=== PATIENT | male | born 1965 | race Caucasian/White ===

== ENCOUNTER 2021-12-11 13:36 | Emergency (ER) | payer MEDICAID, SELFPAY ==
[2021-12-11] VITALS (18 sets, daily range): BP systolic 158–211; BP diastolic 72–133; PULSE 47–68; RESP 15–23; TEMP 36.8; O2SAT 91–98; BMI 30.7
--- NOTE | 2021-12-11 13:59 | PC.NURSE ---
Pt reports came to ER today due to high blood pressure, dizziness, and nausea. Denies hx of HTN or other medical history. Denies chest pain, headaches, or dyspnea. Visitor at bedside. Call light within reach. Instructed on use.
[2021-12-11 14:35] LABS: Basophils % 0.6 %; Eosinophils # 0.1 10^3/uL (0.0-0.8); Hematocrit 48.6 % (42.0-52.0); Hemoglobin 16.1 g/dL (11.7-16.6); Lymphocytes # 1.7 10^3/uL (0.8-4.8); Lymphocytes % 25.7 %; Mean Corpuscular HGB Conc 33.1 g/dL (30.0-36.0); Mean Corpuscular Hemoglobin 30.1 pg (28.0-34.0); Mean Platelet Volume 10.1 fL (7.4-10.4); Monocytes # 0.6 10^3/uL (0.2-0.9); Monocytes % 9.1 %; Neutrophils # 4.23 10^3/uL (1.8-7.7); Neutrophils % 63.3 %; Nucleated Red Blood Cells % 0 %; Platelet Count 199 10^3/cmm (130-400); Red Blood Count 5.34 10^6/uL (4.1-5.3); Red Cell Distribution Width 14.3 % (12.1-15.1); White Blood Count 6.7 10^3/uL (4.0-10.0)
--- NOTE | 2021-12-11 14:35 | ECG_ITS ---
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 Measurements Intervals [place] Rate: 58 P: 22 VA: 161 QRS: -25 QRSD: 104 T: 201 QT: 445 QTc: 438 Interpretive Statements SINUS BRADYCARDIA BORDERLINE LEFT AXIS DEVIATION [QRS AXIS < -20] LEFT VENTRICULAR HYPERTROPHY AND ST-T CHANGE [VOLTAGE CRITERIA PLUS ST/T ABNORMALITY] No previous ECG available for comparison Electronically Signed On 12-11-2021 19:05:50 CDT by Johnie Browning M.D. [email or web address]/[id number]
[2021-12-11 14:58] LABS: Alanine Aminotransferase 15 U/L (0-41); Albumin Level 4.1 g/dL (3.5-5.2); Alkaline Phosphatase 66 IU/L (40-130); Aspartate Amino Transferase 20 U/L (0-40); Blood Urea Nitrogen 12 mg/dL (6-20); Carbon Dioxide 26 mmol/L (22-29); Chloride 104 mmol/L (98-107); Globulin 2.7 g/dL (1.3-4.6); Glucose 108 mg/dL (65-115); Osmolality Calculated 290 mOsm/kg (285-295); Sodium 140 mmol/L (136-145); Total Bilirubin 0.4 mg/dL (0.15-1.2); Total Protein 6.8 g/dL (6.6-8.7)
--- NOTE | 2021-12-11 15:11 | W.ED.DIZZY ---
HPI - Dizziness General: Chief Complaint: Dizziness Stated Complaint: high B/P Time Seen by Provider: 12/11/21 13:53 Source: patient Mode of arrival: ambulatory History of Present Illness: HPI Narrative: 56-year-old male presents to the emergency room with complaints of generally feeling dizzy not feeling well. He occasionally gets some chest discomfort this is been going on for a couple of weeks now he is not really taking anything for it. He does not usually see the doctor. He has not noticed anything that exacerbates or relieves it. Patient does not smoke he does admit to drinking about 6 beers a night. MD elicited complaint: dizziness Onset (ago): week(s) Timing: intermittent Severity: moderate Description: lightheadedness and off-balance Exacerbating factors: nothing Relieving factors: nothing Associated symptoms: Denies change in hearing, chest pain, chills, cough, diaphoresis, ear discharge, ear pressure, fevers/chills, headache(s), malaise, nausea, nasal congestion, palpitations, rash, short of breath, syncope, tinnitus, vomiting or weakness Associated neuro symptoms: Deny confusion, difficulty speaking, dysphagia, diplopia, extremity weakness, facial numbness, facial weakness, gait changes, numbness in extremities or visual changes Review of Systems Const: Denies: fever(s), chills, fatigue, malaise or diaphoresis ENMT: Denies: ear discharge, change in hearing, tinnitus or nasal congestion Card: Denies: chest pain, palpitations or syncope Resp: Denies: dyspnea, productive cough or non-productive cough GI: Denies: abdominal pain, nausea, vomiting or dysphagia : Denies: flank pain, difficulty urinating, dysuria, urinary frequency or urinary urgency Skin/Breast: Denies: rash or pruritus Neuro: Denies: headache(s), numbness in extremities or confusion PFS ED PFSH: Medical History Hypertension Social History Smoking and tobacco status: never smoked Alcohol intake: current Alcohol intake frequency: 3 or more drinks per day Alcohol type: beer Physical Exam Const: GENERAL APPEARANCE: cooperative and comfortable ORIENTATION/CONSCIOUSNESS: Yes awake, Yes oriented to person, Yes oriented to place and Yes oriented to time HENMT: COMMON NORMALS: normocephalic and atraumatic HEAD & SCALP: normocephalic and atraumatic Resp: COMMON NORMALS: normal respiratory effort, No retractions, No use of accessory muscles and clear to auscultation bilaterally AUSCULTATION: clear to auscultation bilaterally Cardio: COMMON NORMALS: regular rate, regular rhythm and No murmurs present (Cardio) RATE: regular rate RHYTHM: regular rhythm GI: COMMON NORMALS: Soft to palpation and No hepatosplenomegaly present AUSCULTATION: Yes normoactive bowel sounds PALPATION: Yes Soft to palpation, No Tenderness to palpation present (GI), No Guarding due to palpation present (GI) and Yes No hepatosplenomegaly present Extremity: COMMON NORMALS: normal to inspection, capillary refill normal, no clubbing, cyanosis or edema, no calf tenderness and no pedal edema Neuro: SENSORIUM/ORIENTATION: Yes oriented to person, Yes oriented to place and Yes oriented to time Skin: COMMON NORMALS: no rashes or lesions noted GENERAL SKIN EXAM: no rashes or lesions noted Course Vital Signs: Vital signs: Vital Signs Temperature 98.3 F 12/11/21 13:42 Pulse Rate 62 12/11/21 17:31 Respiratory Rate 17 12/11/21 17:00 Blood Pressure 172/94 12/11/21 17:31 Pulse Oximetry 97 12/11/21 17:31 Oxygen Delivery Me thod 12/11/21 14:30 MDM - Dizziness Medical Decision Making Labs imaging and EKG reviewed. Blood pressure is improved we will discharge patient home started on amlodipine and aspirin daily. Recheck within the next week to reevaluate blood pressure Medical Records I reviewed the patient's medical records. Lab Data I reviewed the patient's lab results. : 12/11/21 14:25 12/11/21 14:25 Laboratory Results WBC 6.7 10^3/uL (4.0-10.0) 12/11/21 14:25 RBC 5.34 10^6/uL (4.1-5.3) H 12/11/21 14:25 Hgb 16.1 g/dL (11.7-16.6) 12/11/21 14:25 Hct 48.6 % (42.0-52.0) 12/11/21 14:25 MCV 91.0 fl (80-94) 12/11/21 14:25 MCH 30.1 pg (28.0-34.0) 12/11/21 14:25 MCHC 33.1 g/dL (30.0-36.0) 12/11/21 14:25 RDW 14.3 % (12.1-15.1) 12/11/21 14:25 Plt Count 199 10^3/cmm (130-400) 12/11/21 14:25 MPV 10.1 fL (7.4-10.4) 12/11/21 14:25 Neut % (Auto) 63.3 % 12/11/21 14:25 Lymph % (Auto) 25.7 % 12/11/21 14:25 Arthur % (Auto) 9.1 % 12/11/21 14:25 Eos % (Auto) 1.0 % 12/11/21 14:25 Baso % (Auto) 0.6 % 12/11/21 14:25 Neut # (Auto) 4.23 10^3/uL (1.8-7.7) 12/11/21 14:25 Lymph # (Auto) 1.7 10^3/uL (0.8-4.8) 12/11/21 14:25 Arthur # (Auto) 0.6 10^3/uL (0.2-0.9) 12/11/21 14:25 Eos # (Auto) 0.1 10^3/uL (0.0-0.8) 12/11/21 14:25 Baso # (Auto) 0.0 10^3/uL (0.0-0.1) 12/11/21 14:25 Nucleated RBC % (auto) 0 % 12/11/21 14:25 Nucleated RBCs # 0.0 /100WBC 12/11/21 14:25 Sodium 140 mmol/L (136-145) 12/11/21 14:25 Potassium 4.0 mmol/L (3.5-5.1) 12/11/21 14:25 Chloride 104 mmol/L (98-107) 12/11/21 14:25 Carbon Dioxide 26 mmol/L (22-29) 12/11/21 14:25 Anion Gap 14.0 (5-19) 12/11/21 14:25 BUN 12 mg/dL (6-20) 12/11/21 14:25 Creatinine 0.8 mg/dL (0.7-1.2) 12/11/21 14:25 GFR Calculation 100.0 mL/min (90-130) 12/11/21 14:25 Glucose 108 mg/dL (65-115) 12/11/21 14:25 Calculated Osmolality 290 mOsm/kg (285-295) 12/11/21 14:25 Calcium 9.0 mg/dL (8.5-10.5) 12/11/21 14:25 Total Bilirubin 0.4 mg/dL (0.15-1.2) 12/11/21 14:25 AST 20 U/L (0-40) 12/11/21 14:25 ALT 15 U/L (0-41) 12/11/21 14:25 Alkaline Phosphatase 66 IU/L (40-130) 12/11/21 14:25 Total Protein 6.8 g/dL (6.6-8.7) 12/11/21 14:25 Albumin 4.1 g/dL (3.5-5.2) 12/11/21 14:25 Globulin 2.7 g/dL (1.3-4.6) 12/11/21 14:25 Urine Color Yellow (Yellow) 12/11/21 14:07 Urine Appearance Clear (CLEAR) 12/11/21 14:07 Urine pH 7 (5-7) 12/11/21 14:07 Ur Specific [place] 1.005 (1.005-1.030) 12/11/21 14:07 Urine Protein Neg (Negative) 12/11/21 14:07 Urine Glucose (UA) Norm (Normal) 12/11/21 14:07 Urine Ketones Negative (Negative) 12/11/21 14:07 Urine Blood Neg (Negative) 12/11/21 14:07 Urine Nitrate Negative (Negative) 12/11/21 14:07 Urine Bilirubin Neg (Negative) 12/11/21 14:07 Urine Urobilinogen Norm mg/dL (Negative) 12/11/21 14:07 Ur Leukocyte Esterase Negative (Negative) 12/11/21 14:07 Discharge Plan Discharge Patient Disposition: Home Clinical Impression: Hypertension Condition: Stable Prescriptions: New amlodipine 5 mg tablet 5 mg PO DAILY Qty: 30 0RF aspirin 81 mg tablet,delayed release (DR/EC) 81 mg PO DAILY Qty: 30 0RF Discharge Orders: Discharge ED (Routine); Ordered 12/11/21 Ordered By: Kota Weber Discharge Diet: Usual diet Discharge Activity: Increase activity as tolerated Patient Instructions: Opioid Safety Activity Restrictions/Additional Instructions: Case management make arrangements for you to follow-up and establish with a primary care physician. Coding Level of Care Code ED Fire Extinguisher Mechanic for Littleg Fwd Exam Detailed
[2021-12-11 15:35] LABS: Add Urine Microscopic? NO; Charge for UA Resulting for Rev
[2021-12-11] MEDS: amlodipine 5 mg Tablet PO (15:40)
[2021-12-11 15:42] LABS: Bilirubin Urine Neg (Negative); Blood Urine Neg (Negative); Glucose Urine UA Norm (Normal); Ketones Urine Negative (Negative); Leukocyte Esterase Urine Negative (Negative); Nitrate Urine Negative (Negative); Protein Urine Neg (Negative); Specific Gravity, Urine 1.005 (1.005-1.030); Urine Appearance Clear (CLEAR); Urine Color Yellow (Yellow); Urobilinogen Urine Norm (Negative); pH Urine 7 (5-7)
--- NOTE | 2021-12-11 15:45 | PC.NURSE ---
Physician made aware pt HR ranging 45-55. Per physician, okay to give amlodipine.
== END 2021-12-11 17:33 | disposition home or self-care (01) ==
PROVIDERS: Emergency Provider Family Medicine
DX: I10 Essential (primary) hypertension (principal)
CPT/HCPCS: 80053; 81003; 85025; 93005; 99284

== ENCOUNTER → 2023-04-03 14:36 | Outpatient (BNVA) | payer MEDICAID, SELFPAY | PROVIDERS: Visit Provider Family Medicine Adult Medicine | DX: Z00.00 Encounter for general adult medical examination without abnormal findings (principal); I10 Essential (primary) hypertension; G89.29 Other chronic pain; M15.9 Polyosteoarthritis, unspecified; M54.9 Dorsalgia, unspecified | CPT/HCPCS: 80053; 84443; 85025; 85651; G0103 ==

== ENCOUNTER → 2023-05-11 12:51 | Outpatient (BNVA) | payer MEDICAID, SELFPAY | PROVIDERS: PCP Family Medicine Adult Medicine; Visit Provider Family Medicine Adult Medicine | DX: M15.9 Polyosteoarthritis, unspecified (principal); I10 Essential (primary) hypertension; Z00.00 Encounter for general adult medical examination without abnormal findings; G89.29 Other chronic pain; M54.9 Dorsalgia, unspecified | CPT/HCPCS: 80053; 80061; 84443; 85025; 86140 ==

== ENCOUNTER 2023-09-01 22:31 | Inpatient (IN) | payer MEDICAID, SELFPAY ==
[2023-09-01 22:32] VITALS: BP 135/75; PULSE 81; RESP 30; TEMP 36.4; O2SAT 99; BMI 30.4
--- NOTE | 2023-09-01 22:32 | ECG_ITS ---
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 Measurements Intervals [place] Rate: 81 P: 42 MN: 184 QRS: 0 QRSD: 198 T: 118 QT: 483 QTc: 561 Interpretive Statements SINUS RHYTHM LEFT BUNDLE BRANCH BLOCK [120+ ms QRS DURATION, 80+ ms Q/S IN V1/V2, 85+ ms R IN I/aVL/V5/V6] Compared to ECG 12/11/2021 14:35:44 Left bundle-branch block now present Sinus bradycardia no longer present Left ventricular hypertrophy no longer present ST (T wave) deviation no longer present Electronically Signed On 09-02-2023 22:42:23 CDT by Johnie Browning M.D. [id number]
[2023-09-01 22:41] VITALS: PULSE 79
--- NOTE | 2023-09-01 22:41 | XRR_ITS ---
PROCEDURE INFORMATION: Exam: XR Chest Exam date and time: 09/01/2023 10:44 PM Age: 58 years old Clinical indication: Shortness of breath; Patient HX: SOB; Syncope; Low o2 sat TECHNIQUE: Imaging protocol: Radiologic exam of the chest. Views: 1 view. COMPARISON: No relevant prior studies available. FINDINGS: Lungs: Mild bilateral peribronchial thickening and mild perihilar linear markings consistent with bronchitis and/or viral pneumonitis and/or reactive airway disease and/or atypical pulmonary interstitial edema. Pleural spaces: Unremarkable. No pleural effusion. No pneumothorax. Heart/Mediastinum: Moderate globular cardiomegaly consistent with 4-chamber enlargment and/or pericardial effusion. Bones/joints: Moderate thoracic spondylosis. XR/XR chest 1V portable [id number] IMPRESSION: 1. Moderate globular cardiomegaly consistent with 4-chamber enlargment and/or pericardial effusion. 2. Mild bilateral peribronchial thickening and mild perihilar linear markings consistent with bronchitis and/or viral pneumonitis and/or reactive airway disease and/or atypical pulmonary interstitial edema.
[2023-09-01] MEDS: morphine 4 mg/mL SDV 1 mL IVP (22:52)
[2023-09-01] MEDS: ondansetron 2 mg/ML SDV 2 mL 4 MG IVP (22:52)
[2023-09-01 22:53] LABS: Basophils % 0.6 %; Eosinophils % 0.3 %; Hematocrit 43.4 % (37-53); Lymphocytes # 2.2 10^3/uL (0.8-4.8); Lymphocytes % 34.3 %; Mean Corpuscular HGB Conc 33.4 g/dL (30-55); Mean Corpuscular Hemoglobin 30.5 pg (27-33); Mean Corpuscular Volume 91.2 fl (82-101); Mean Platelet Volume 9.8 fL (7.4-10.4); Monocytes # 0.5 10^3/uL (0.2-0.9); Monocytes % 7.6 %; Neutrophils # 3.65 10^3/uL (1.8-7.7); Neutrophils % 56.7 %; Nucleated Red Blood Cells % 0 %; Platelet Count 297 10^3/cmm (157-399); Red Blood Count 4.76 10^6/uL (3.85-5.65); Red Cell Distribution Width 14.4 % (12.1-15.1); White Blood Count 6.44 10^3/uL (3.29-11.43)
--- NOTE | 2023-09-01 22:57 | PC.NURSE ---
Pt. states to mother on the phone that he has lung cancer and that he is going to prove to his brother and her that he has had lung cancer and been sick for a while. When mother asked if the hospital told him that he has lung cancer, the patient states No, I know. they are going to do a bunch of tests on me, my blood pressure and my heart pressure! I'll call you later
[2023-09-01 23:11] LABS: INR 0.98 (0.8-1.2)
[2023-09-01 23:12] LABS: Partial Thromboplastin Time 29.1 SECONDS (23.9-36.7)
--- NOTE | 2023-09-01 23:20 | W.ED.CHESTPA ---
HPI - Chest Pain General: Chief Complaint: Chest Pain Stated Complaint: cp/sob Time Seen by Provider: 09/01/23 22:39 History of Present Illness: 58-year-old male with no prior history of coronary disease. He does have a history of hypertension evidently. He presents with worsening shortness of breath over the last week. He says he has been short of breath on and off for couple of years. He is noted worsening lower extremity edema for the past month or so. He denies fever. He says he is coughing up slimy saliva . Tonight, his shortness of breath was worse, so he called ambulance. He admits to having some chest pain, but notes that it is left-sided with his cough. He denies chest pain currently. Associated symptoms: Reports dyspnea; Deny abdominal pain, fever(s), nausea, palpitations or vomiting Review of Systems Const: Denies: fever(s) ENMT: Denies: throat pain Card: Reports: chest pain; Denies: palpitations Resp: Reports: dyspnea, productive cough, wheezing and hemoptysis GI: Denies: abdominal pain, nausea, vomiting or diarrhea Neuro: Reports: dizziness Psych: Reports: anxiety [facility] ED PFSH: Medical History Healthcare maintenance Osteoarthritis involving multiple joints on both sides of body Shoulder pain Back pain Chronic pain Hypertension Family History (Updated 02/28/23 @ 13:15 by Jacy Poe LPN) Father No problems noted. Mother No problems noted. Social History Smoking and tobacco/nicotine status: never used tobacco/nicotine Alcohol intake: current Alcohol intake frequency: 3 or more drinks per day Alcohol type: beer Substance/Drug Use: former Physical Exam Const: GENERAL APPEARANCE: cooperative, anxious and ill appearing (Mildly); not frail appearing HENMT: COMMON NORMALS: normocephalic, atraumatic and Normal external nose present HEAD & SCALP: normocephalic and atraumatic FACE & SINUS: normal facial exam and face symmetric NOSE: Normal external nose present Eye: COMMON NORMALS: Equal, round and reactive pupils present and EOMs intact bilaterally PUPIL: Yes Equal, round and reactive pupils present Neck/C-Spine: GENERAL: Yes trachea midline Chest: CHEST: Yes Symmetrical chest wall rise Resp: COMMON NORMALS: normal respiratory effort, No retractions, No use of accessory muscles and clear to auscultation bilaterally AUSCULTATION: clear to auscultation bilaterally Cardio: COMMON NORMALS: regular rate and regular rhythm RATE: regular rate RHYTHM: regular rhythm GI: COMMON NORMALS: Normal to inspection, nondistended, normoactive bowel sounds present Extremity: GENERAL: Yes edema (1+) Neuro: ALLIE COMA SCALE: document GCS findings Allie coma scale eye opening: Spontaneous Allie coma scale verbal response: Orientated [place] coma scale motor response: Obey commands Allie coma scale total score: 15 SENSORY EXAM: Yes extremities (intact) Psych: COMMON NORMALS: speech normal SPEECH: Yes normal speech Course Vital Signs: Vital signs: Vital Signs Temperature 97.6 F 09/01/23 22:32 Pulse Rate 81 09/01/23 22:32 Respiratory Rate 30 H 09/01/23 22:32 Blood Pressure 135/75 09/01/23 22:32 Pulse Oximetry 99 09/01/23 22:32 MDM - Chest Pain Medical Decision Making 58-year-old gentleman with cough, some sputum production, lower extremity edema, and pleuritic chest pain. The patient has a large left bundle branch block on EKG. There is some ST elevation anteriorly present in the left bundle. Interventional cardiology was consulted on the patient's arrival with the EKG, as he has an EKG from 2 years ago that does not show his left bundle. They agree without a story of anginal type chest discomfort, it is difficult to characterize this large left bundle with ST wave changes as an ST elevation MO. Recommendations are to treat medically for now, and obtain troponins. His CBC is normal. His chest x-ray shows some cardiomegaly with vascular congestion present. He is tachypneic, with edematous legs. His BNP is significantly elevated at 2700. First troponin is 44, with a delta of -7 at 2 hours. His blood pressures have been high 80s and 90s over 50s. He is not oxygen dependent at this point, but has significant orthopnea. He will go to the ICU given his hypotension. Lab Data 09/01/23 22:10 09/01/23 22:10 Radiology Impressions Chest X-Ray 09/01/23 22:41 IMPRESSION: 1. Moderate globular cardiomegaly consistent with 4-chamber enlargment and/or pericardial effusion. 2. Mild bilateral peribronchial thickening and mild perihilar linear markings consistent with bronchitis and/or viral pneumonitis and/or reactive airway disease and/or atypical pulmonary interstitial edema. Laboratory Results WBC 6.44 10^3/uL (3.29-11.43) 09/01/23 22:10 RBC 4.76 10^6/uL (3.85-5.65) 09/01/23 22:10 Hgb 14.50 g/dL (11.27-16.99) 09/01/23 22:10 Hct 43.4 % (37-53) 09/01/23 22:10 MCV 91.2 fl (82-101) 09/01/23 22:10 MCH 30.5 pg (27-33) 09/01/23 22:10 MCHC 33.4 g/dL (30-55) 09/01/23 22:10 RDW 14.4 % (12.1-15.1) 09/01/23 22:10 Plt Count 297 10^3/cmm (157-399) 09/01/23 22:10 MPV 9.8 fL (7.4-10.4) 09/01/23 22:10 Neut % (Auto) 56.7 % 09/01/23 22:10 Lymph % (Auto) 34.3 % 09/01/23 22:10 [place] % (Auto) 7.6 % 09/01/23 22:10 Eos % (Auto) 0.3 % 09/01/23 22:10 Baso % (Auto) 0.6 % 09/01/23 22:10 Neut # (Auto) 3.65 10^3/uL (1.8-7.7) 09/01/23 22:10 Lymph # (Auto) 2.2 10^3/uL (0.8-4.8) 09/01/23 22:10 [place] # (Auto) 0.5 10^3/uL (0.2-0.9) 09/01/23 22:10 Eos # (Auto) 0.0 10^3/uL (0.0-0.8) 09/01/23 22:10 Baso # (Auto) 0.0 10^3/uL (0.0-0.1) 09/01/23 22:10 Nucleated RBC % (auto) 0 % 09/01/23 22:10 Nucleated RBCs # 0.0 /100WBC 09/01/23 22:10 PT 13.30 SECONDS (12.1-14.9) 09/01/23 22:10 INR 0.98 (0.8-1.2) 09/01/23 22:10 APTT 29.1 SECONDS (23.9-36.7) 09/01/23 22:10 Sodium 136 mmol/L (136-145) 09/01/23 22:10 Potassium 4.3 mmol/L (3.5-5.1) 09/01/23 22:10 Chloride 100 mmol/L (98-107) 09/01/23 22:10 Carbon Dioxide 20 mmol/L (22-29) L 09/01/23 22:10 Anion Gap 20.3 (5-19) H 09/01/23 22:10 BUN 10 mg/dL (6-20) 09/01/23 22:10 Creatinine 1.0 mg/dL (0.7-1.2) 09/01/23 22:10 GFR Calculation 76.7 mL/min (90-130) L 09/01/23 22:10 Glucose 105 mg/dL (65-115) 09/01/23 22:10 Calculated Osmolality 281 mOsm/kg (285-295) L 09/01/23 22:10 Calcium 8.8 mg/dL (8.5-10.5) 09/01/23 22:10 Total Bilirubin 0.3 mg/dL (0.15-1.2) 09/01/23 22:10 AST 19 U/L (0-40) 09/01/23 22:10 ALT 11 U/L (0-41) 09/01/23 22:10 Alkaline Phosphatase 71 U/L (40-130) 09/01/23 22:10 Troponin T Baseline 44 ng/L (0-15) H 09/01/23 22:10 Troponin T 120 Minute 36.72 ng/L (0-15) H 09/02/23 00:17 Delta Troponin T -7.28 ABS# (0-10) L 09/02/23 00:17 NT-Pro-B Natriuret Pep 2677 pg/mL (0-125) H 09/01/23 22:10 Total Protein 7.3 g/dL (6.6-8.7) 09/01/23 22:10 Albumin 4.1 g/dL (3.5-5.2) 09/01/23 22:10 Globulin 3.2 g/dL (1.3-4.6) 09/01/23 22:10 All radiology interpretation(s) finalized by discharge Discharge Plan Discharge Patient Disposition: Admitted As Inpatient Clinical Impression: Chest pain, Pulmonary edema, Acute hypotension Condition: Fair Prescriptions: No Action celecoxib 400 mg capsule 400 mg PO DAILY PRN (Reason: pain) Qty: 30 1RF lisinopril-hydrochlorothiazide 20-12.5 mg tablet 1 tab PO .q am Qty: 90 0RF baclofen 20 mg tablet 20 mg PO TID Qty: 90 1RF Referrals: Kip Howard MD [Primary Care Provider] - Coding Level of Care Code ED Computer Numerical Control Machinist for Chg Anthony
[2023-09-01 23:36] LABS: Troponin(5th) Baseline 44 ng/L (0-15)
[2023-09-01 23:38] VITALS: BP 88/47; PULSE 60; RESP 24; O2SAT 92
[2023-09-01 23:51] LABS: Alanine Aminotransferase 11 U/L (0-41); Albumin Level 4.1 g/dL (3.5-5.2); Alkaline Phosphatase 71 U/L (40-130); Anion Gap 20.3 (5-19); Aspartate Amino Transferase 19 U/L (0-40); Blood Urea Nitrogen 10 mg/dL (6-20); Calcium 8.8 mg/dL (8.5-10.5); Carbon Dioxide 20 mmol/L (22-29); Chloride 100 mmol/L (98-107); Creatinine Clr Calc Pharmacy 88.0671; Globulin 3.2 g/dL (1.3-4.6); Glomerular Filtration Rate 76.7 mL/min (90-130); Glucose 105 mg/dL (65-115); NT Pro B Type Natriuretic Pept 2677 pg/mL (0-125); Osmolality Calculated 281 mOsm/kg (285-295); Potassium 4.3 mmol/L (3.5-5.1); Sodium 136 mmol/L (136-145); Total Bilirubin 0.3 mg/dL (0.15-1.2); Total Protein 7.3 g/dL (6.6-8.7)
[2023-09-02] VITALS (31 sets, daily range): BP systolic 87–148; BP diastolic 52–102; PULSE 54–88; RESP 18–27; TEMP 36.5–37; O2SAT 88–96; BMI 31.4
[2023-09-02 00:39] LABS: Troponin 5 2HR 36.72 ng/L (0-15)
--- NOTE | 2023-09-02 00:41 | ECG_ITS ---
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 Measurements Intervals [place] Rate: 61 P: 38 MT: 173 QRS: 7 QRSD: 198 T: 141 QT: 544 QTc: 550 Interpretive Statements SINUS RHYTHM LEFT BUNDLE BRANCH BLOCK [120+ ms QRS DURATION, 80+ ms Q/S IN V1/V2, 85+ ms R IN I/aVL/V5/V6] Compared to ECG 09/01/2023 22:32:06 No significant changes Electronically Signed On 09-02-2023 22:50:15 CDT by Johnie Browning M.D. [id number]
[2023-09-02 00:42] LABS: Troponin 5 2HR Delta -7.28 ABS# (0-10)
[2023-09-02] MEDS: morphine 4 mg/mL SDV 1 mL 2 MG IVP (03:57)
--- NOTE | 2023-09-02 05:45 | P.HP_ITS ---
Providers/Chief Complaint 2 Admitting Physician: London Braga MD Primary Care Provider: Kip Howard MD Chief Complaint: cp/sob History of Present Illness Jude Lemon is a 58 year old male history of CHF OR or coronary disease presents to the hospital with chief complaint of worsening of shortness of breath and chest pain. Patient stating that he has been struggling with shortness of breath for last 1 year and it has gotten worse in last 6 weeks, he is experiencing orthopnea, PND shortness of breath on exertion. Around 11 PM on 08/31 he was walking towards the bathroom when he started getting dizzy and short of breath, he started spearing seeing chest pain which only lasted for about 5 seconds he described his chest pain as sharp stabbing pain he is able to pinpoint the area. He also noted some numbness in his left arm. He did not experience vomiting. Because of worsening of shortness of breath he decided to come to the hospital, in the ER EKG was showing to the supply chain analyst, there was new onset left bundle branch block without active chest pain, supply chain analyst recommended monitoring for serial troponins At the time of evaluation patient is on room air hemodynamically stable EKG changes are still present he is not having any active chest pain, troponins are trending down Patient is full code, stating that he lives with his mother He smokes 1 pack/day cutting down to less than half pack a day He was asking if he has lung cancer Patient is stating that for last few weeks he has been noticing ankle swelling Review of Systems 2 Const: Reports: body aches, change in weight and fatigue; Denies: fever(s) Eyes: Denies: change in vision ENMT: Denies: throat pain Card: Reports: chest pain and swelling of feet/ankles Resp: Reports: dyspnea and productive cough GI: Denies: abdominal pain : Denies: flank pain Medications/Allergies Home Medications Medication Instructions Recorded Confirmed Last Taken Type celecoxib 400 mg capsule 400 mg PO DAILY PRN pain #30 caps 02/28/23 05/11/23 Unknown Rx lisinopril 20 1 tab PO .q am hypertension #90 04/03/23 05/11/23 Unknown Rx mg-hydrochlorothiazide 12.5 mg tabs tablet baclofen 20 mg tablet 20 mg PO TID back pain #90 tabs 05/11/23 Unknown Rx Allergies Allergy/AdvReac Type Severity Reaction Status Date / Time No Known Allergies Allergy Unverified 05/11/23 12:54 PFSH Acute 2 PFSH: Medical History Healthcare maintenance Osteoarthritis involving multiple joints on both sides of body Shoulder pain Back pain Chronic pain Hypertension Family History Father No problems noted. Mother No problems noted. Social History Smoking and tobacco/nicotine status: never used tobacco/nicotine Alcohol intake: current Alcohol intake frequency: 3 or more drinks per day Alcohol type: beer Substance/Drug Use: former Vitals/I&O/Wt Last Vital Signs Temp 97.6 F 09/01/23 22:32 Pulse 76 09/02/23 01:42 Resp 24 H 09/02/23 01:42 BP 129/72 09/02/23 01:42 Pulse Ox 96 09/02/23 01:42 O2 Del Method Room Air 09/02/23 02:00 09/01/23 09/01/23 09/02/23 14:59 22:59 06:59 Intake Total 180 / 180 Balance 180 / 180 Weight last 48 hrs Weight 93.894 kg Weight 90.718 kg Physical Exam 2 Narrative: Awake and alert Active sign of fluid overload Crackles bilateral. Rhonchi Currently on room air Hemodynamic stable No active chest pain Lower extremity no significant swelling S1, S2 Abdomen soft Pleasant cooperative Nonfocal neuroexam Dental caries Data 09/01/23 22:10 09/01/23 22:10 A&P Assessment and plan (1) Chest pain: (2) Acute hypotension: (3) Pulmonary edema: (4) New onset of congestive heart failure: Plan Unstable angina with new left bundle branch block No active chest pain Troponin trending down EKG showing ST depression with left bundle branch block New onset left bundle branch block Will request echo Will give Lasix as well Patient seems to have cardiomegaly on the chest x-ray, BNP is high Clinical signs of fluid overload New onset CHF Ejection fraction is unknown Requesting echo Start IV Lasix Pulm edema present on chest x-ray He is experiencing orthopnea PND, not requiring oxygen at this time Active smoker: Smokes 1 pack/day, Will request D-dimer DuoNeb every 4 as needed Essential hypertension Patient was seen in the ER for hypertension when he was placed on lisinopril hydrochlorothiazide combination, on arrival his blood pressure was low, for now I would only start lisinopril Further decision regarding angiogram will be made after reviewing echo Check B12 and TSH Full code Cardiac diet I will keep patient on therapeutic Lovenox will request D-dimer, rule out PE Attestations 2 Medical Necessity Statement*: More than 2 midnights anticipated Diagnoses Chest pain R07.9 Acute hypotension I95.9 Pulmonary edema J81.1 New onset of congestive heart failure I50.9
--- NOTE | 2023-09-02 05:47 | USCV_ITS ---
Jude Lemon Age: 58 Gender: M : 1965 Exam Date: 09/02/2023 07:57 Ordering Phys: London Braga MD Technologist: Yazan Davis [place] [facility] [place] UA BP: 135 / 72 HR: 74 Rhythm: Sinus Technical Quality: Adequate MEASUREMENTS (Male / Female) Normal Values 2D ECHO LV Diastolic Diameter PLAX 6.4 cm 4.2 - 5.9 / 3.9 - 5.3 cm IVS Diastolic Thickness 1.5 cm 0.6 - 1.0 / 0.6 - 0.9 cm IVS Systolic Thickness 1.4 cm LVPW Diastolic Thickness 1.5 cm 0.6 - 1.0 / 0.6 - 0.9 cm LVPW Systolic Thickness 1.8 cm LVOT Diameter 2.0 cm LV Ejection Fraction 2D Teich 22.8 % LV Ejection Fraction MOD 2C 34.5 % LV Ejection Fraction 2C AL 32.6 % LA Diameter 4.6 cm RA Systolic Volume 4C AL 67.3 ml RA Systolic Volume 4C MOD 64.4 ml LA Sys Volume AL 88.1 cm cubed LA Sys Volume Index AL 41.0 cm cubed/m squared Aorta at Sinotubular Diameter 3.0 cm IVC Diameter 1.9 cm M-MODE LA Ao Ratio MM 1.2 AV Cusp Separation MM 2.2 cm DOPPLER AV Peak Velocity 150.0 cm/s LVOT Peak Velocity 96.0 cm/s AV Area Cont Eq vti 2.5 cm squared AV Area Cont Eq pk 2.1 cm squared MV Peak Velocity 148.0 cm/s MV Area PHT 6.9 cm squared Mitral E to A Ratio 1.6 TV Peak Velocity 339.3 cm/s TR Peak Velocity 380.0 cm/s TR Peak Gradient 57.8 mmHg TR Mean Velocity 268.0 cm/s TR Mean Gradient 33.4 mmHg TR Velocity Time Integral 118.1 cm PV Peak Velocity 113.7 cm/s RV Ejection Time 0.3 s FINDINGS Left Ventricle Diffuse hypokinesia of the left ventricule with an ejection fraction of 33%. Moderately dilated LV cavity. Mild concentric left trickle hypertrophy.Grade III/IV diastolic dysfunction (restrictive filling pattern), severely elevated filling pressures. Right Ventricle Possibly normal RV size and ejection fraction Right Atrium Mildly increased right atrial size. Left Atrium Moderately dilated Mitral Valve Thickened mitral valve. Moderate-severe mitral valve regurgitation. Aortic Valve Minimally thickened Tricuspid Valve Trace to mild tricuspid valve regurgitation. Pulmonic Valve Mild pulmonary valve regurgitation. Pericardium No pericardial effusion. Aorta Normal aortic annulus size. IVC The inferior vena cava appears normal. CONCLUSIONS Diffuse hypokinesia of the left ventricule with an ejection fraction of 33%. Moderately dilated LV cavity. Mild concentric left trickle hypertrophy.Grade III/IV diastolic dysfunction (restrictive filling pattern), severely elevated filling pressures. Mildly dilated right atrium and moderately dilated left atrium Moderate-severe mitral valve regurgitation. Minimally thickened aortic and mitral valves. Trace to mild tricuspid valve regurgitation. Estimated pulmonary artery peak systolic pressure 33 mmHg There is no pericardial effusion. There are no intracardiac masses. No similar previous studies are available for comparison Dr Johnie Browning MD [facility] (Electronically Signed) Final Date: 02 September 2023 09:32 S
[2023-09-02 06:03] LABS: D Dimer 0.79 ug/mLFEU (0-0.59)
[2023-09-02 06:12] LABS: Estmated Average Glucose 94; Hemoglobin A1C 4.9 % (4.0-6.0)
[2023-09-02 06:28] LABS: Creatine Phosphokinase 117 U/L (39-308); Lactate Dehydrogenase 143 U/L (135-225); Thyroid Stimulating Hormone 1.16 uIU/mL (0.27-4.20); Vitamin B12 410 pg/mL (232-1245)
[2023-09-02] MEDS: FUROsemide 10 mg/mL SDV 4mL 40 MG IVP (06:56)
[2023-09-02] MEDS: enoxaparin 100 mg/mL Syringe SUBCUT ×2 (06:56→17:54)
[2023-09-02] MEDS: sennosides-docusate Tablet 1 TAB PO (09:00)
[2023-09-02] MEDS: aspirin 81 mg EC Tablet PO (09:00)
[2023-09-02] MEDS: lisinopril 10 mg Tablet PO (09:01)
[2023-09-02] MEDS: atorvastatin 40 mg Tablet 80 MG PO (09:01)
--- NOTE | 2023-09-02 09:35 | P.CONIM_ITS ---
Providers/Reason For Consult 2 Consulting Physician/Specialty*: BRAYDON Browning MD/cardiology Reason for Consult*: Patient with chest pain, shortness of breath and new EKG changes Requesting Physician: Dr. Garcia Attending Physician: Josefina Garcia MD Primary Care Provider: Kip Howard MD History of Present Illness History of Present Illness Jude Lemon is a 58 year old male is admitted to hospital through the emergency room where he presented with complaints of progressive shortness of breath, dizziness and weakness. He was found to have features of congestive heart failure and new left bundle branch block. Cardiology consult is requested for further cardiac evaluation and recommendations. This patient has no significant past medical history except for the high blood pressure which was diagnosed a year ago when he presented with a blood pressure of 190. He was placed on some medication. Apparently he ran out of the medicine 2 months ago. He was supposed to go back to his primary care provider but because of some respiratory illness, he did not show up for his appointment. Also for the last 1 year or so, he been having some amount of dyspnea exertion. His functional status has been slowly declining. But for the last 6 months, he was having significant worsening of the shortness of breath. He was finding it difficult to lie flat in the bed. He also was noticing some swelling of the lower extremities. He had a cough which was bringing out a whitish mucoid sputum. He did not have any fever or chills. No abdominal pain or dysuria. He has some chest discomfort with cough. Otherwise no significant chest pain. He has no documented history for coronary artery disease, myocardial infarction or congestive heart failure. Approximately 5 years ago, he had an episode of stroke like symptoms where his eyes got blurred, numbness and weakness of the right upper extremity. He was in a car with his mother at that time. He was taken to the hospital but on the way his symptoms resolved. The whole episode medial lasted for half an hour or so. He has not had any recurrence of symptoms. He did not have any significant workup at that time. He has a history of heavy smoking abuse 2 packs a day for 45 years or so. For the last 2 months, he been cutting back. He currently smokes 10 cigarettes a day. He also drinks a couple of glasses of wine a week. No alcohol abuse. He used methamphetamine for 5 years or so and quit 20 years ago. He tried marijuana for pain a month ago or so. Apparently did not work. So he did not use it again. Review of Systems 2 Narrative: CONSTITUTIONAL: No fever or chills. EYES: No blurring of vision or other visual disturbances lately. ENT: No hoarseness of voice, auditory disturbances or sore throat. CARDIOVASCULAR: As mentioned above. RESPIRATORY: Cough and shortness of breath as mentioned above GASTROINTESTINAL: No hematemesis or melena. GENITOURINARY: No dysuria or hematuria. INTEGUMENTARY: No skin rashes or history of skin cancer. NEURO: History of CVA as mentioned above PSYCHIATRIC: No history of psychosis or major depression. HEMATOLOGIC: No bleeding disorders or significant anemia. ENDOCRINE: No history of polyuria or polydipsia. MUSCULOSKELETAL: No recent joint pain or swelling. ALLERGY/IMMUNOLOGY: As mentioned above. Medications/Allergies Home Medications Medication Instructions Recorded Confirmed Last Taken Type No Known Home Medications 09/02/23 09/02/23 Unknown History Allergies Allergy/AdvReac Type Severity Reaction Status Date / Time No Known Allergies Allergy Unverified 05/11/23 12:54 Current Medications Generic Name Dose Route Start Last Admin Trade Name Moizq PRN Reason Stop Dose Admin Aspirin 81 mg 09/02/23 09:00 09/02/23 09:00 Aspirin 81 Mg Ec Tablet PO 81 mg DAILY JANICE Administration Atorvastatin Calcium 80 mg 09/02/23 09:00 09/02/23 09:01 Atorvastatin 40 Mg Tablet PO 80 mg DAILY JANICE Administration Enoxaparin Sodium 100 mg 09/02/23 06:00 09/02/23 06:56 Enoxaparin 100 Mg/Ml Syringe SUBCUT 100 mg Q12H JANICE Administration Furosemide 40 mg 09/02/23 06:30 09/02/23 06:56 Furosemide 10 Mg/Ml Sdv 4ml IVP 40 mg Q24H JANICE Administration Lisinopril 10 mg 09/02/23 09:00 09/02/23 09:01 Lisinopril 10 Mg Tablet PO 10 mg DAILY JANICE Administration Senna/Docusate Sodium 1 tab 09/02/23 09:00 09/02/23 09:00 Sennosides-Docusate Tablet PO 1 tab DAILY JANICE Administration PFSH Acute 2 PFSH: Medical History Healthcare maintenance Osteoarthritis involving multiple joints on both sides of body Shoulder pain Back pain Chronic pain Hypertension Family History Father No problems noted. Mother No problems noted. Social History Smoking and tobacco/nicotine status: never used tobacco/nicotine Alcohol intake: current Alcohol intake frequency: 3 or more drinks per day Alcohol type: beer Substance/Drug Use: former Vitals/I&O/Wt Last Vital Signs Temp 97.7 F 09/02/23 08:00 Pulse 82 09/02/23 09:31 Resp 18 09/02/23 09:31 BP 119/66 09/02/23 08:00 Pulse Ox 92 09/02/23 09:31 O2 Del Method Room Air 09/02/23 09:31 09/01/23 09/02/23 09/02/23 22:59 06:59 14:59 Intake Total 180 / 180 240 / 240 Balance 180 / 180 240 / 240 Weight last 48 hrs Weight 207 lb Weight 207 lb Weight 200 lb Physical Exam 2 Narrative: GENERAL: The patient is alert and oriented times three. Not in any acute distress. HEENT: No significant pallor, icterus or lymphadenopathy.Oral cavity: There are no mucous membrane lesions. NECK: Trachea appears to be central. No masses noted. No JVD or thyromegaly appreciated. RESPIRATORY: Chest is symmetrical. No intercostals muscle retraction or any accessory muscle activation. There is no chest wall tenderness. Breath sounds are heard bilaterally. No rales or rhonchi heard. No evidence of any consolidation. BREASTS: Deferred. HEART: The heart sounds are normal. No S3 or S4. Systolic murmur grade 4/6 in the mitral area. No diastolic murmurs. No pericardial rub ABDOMEN: No vessel pulsations or distention. No tenderness. No organomegaly appreciated. Bowel sounds are normally heard. : Deferred. RECTAL: Deferred. LYMPHATIC: No lymphadenopathy noted in the neck. EXTREMITIES: Warm visiting with no cyanosis. Peripheral pulses are palpable in good volume and amplitude MUSCULOSKELETAL: No acute joint deformities or swelling SKIN: There are no significant rashes or ecchymosis NEUROPSYCHIATRIC: The patient is alert and oriented x3. Appears to be in a good mood. No tremors or rigidity noted. Data 09/01/23 22:10 09/01/23 22:10 Other Labs: Laboratory Last Values WBC 6.44 10^3/uL (3.29-11.43) 09/01/23 22:10 RBC 4.76 10^6/uL (3.85-5.65) 09/01/23 22:10 Hgb 14.50 g/dL (11.27-16.99) 09/01/23 22:10 Hct 43.4 % (37-53) 09/01/23 22:10 MCV 91.2 fl (82-101) 09/01/23 22:10 MCH 30.5 pg (27-33) 09/01/23 22:10 MCHC 33.4 g/dL (30-55) 09/01/23 22:10 RDW 14.4 % (12.1-15.1) 09/01/23 22:10 Plt Count 297 10^3/cmm (157-399) 09/01/23 22:10 MPV 9.8 fL (7.4-10.4) 09/01/23 22:10 Neut % (Auto) 56.7 % 09/01/23 22:10 Lymph % (Auto) 34.3 % 09/01/23 22:10 [place] % (Auto) 7.6 % 09/01/23 22:10 Eos % (Auto) 0.3 % 09/01/23 22:10 Baso % (Auto) 0.6 % 09/01/23 22:10 Neut # (Auto) 3.65 10^3/uL (1.8-7.7) 09/01/23 22:10 Lymph # (Auto) 2.2 10^3/uL (0.8-4.8) 09/01/23 22:10 [place] # (Auto) 0.5 10^3/uL (0.2-0.9) 09/01/23 22:10 Eos # (Auto) 0.0 10^3/uL (0.0-0.8) 09/01/23 22:10 Baso # (Auto) 0.0 10^3/uL (0.0-0.1) 09/01/23 22:10 Nucleated RBC % (auto) 0 % 09/01/23 22:10 Nucleated RBCs # 0.0 /100WBC 09/01/23 22:10 PT 13.30 SECONDS (12.1-14.9) 09/01/23 22:10 INR 0.98 (0.8-1.2) 09/01/23 22:10 APTT 29.1 SECONDS (23.9-36.7) 09/01/23 22:10 D-Dimer 0.79 ug/mLFEU (0-0.59) H 09/01/23 22:10 Sodium 136 mmol/L (136-145) 09/01/23 22:10 Potassium 4.3 mmol/L (3.5-5.1) 09/01/23 22:10 Chloride 100 mmol/L (98-107) 09/01/23 22:10 Carbon Dioxide 20 mmol/L (22-29) L 09/01/23 22:10 Anion Gap 20.3 (5-19) H 09/01/23 22:10 BUN 10 mg/dL (6-20) 09/01/23 22:10 Creatinine 1.0 mg/dL (0.7-1.2) 09/01/23 22:10 GFR Calculation 76.7 mL/min (90-130) L 09/01/23 22:10 Glucose 105 mg/dL (65-115) 09/01/23 22:10 Estimat Average Glucose 94 09/02/23 03:34 Hemoglobin A1c 4.9 % (4.0-6.0) 09/02/23 03:34 Calculated Osmolality 281 mOsm/kg (285-295) L 09/01/23 22:10 Calcium 8.8 mg/dL (8.5-10.5) 09/01/23 22:10 Total Bilirubin 0.3 mg/dL (0.15-1.2) 09/01/23 22:10 AST 19 U/L (0-40) 09/01/23 22:10 ALT 11 U/L (0-41) 09/01/23 22:10 Alkaline Phosphatase 71 U/L (40-130) 09/01/23 22:10 Lactate Dehydrogenase 143 U/L (135-225) 09/02/23 03:34 Creatine Kinase 117 U/L (39-308) 09/02/23 03:34 Troponin T Baseline 44 ng/L (0-15) H 09/01/23 22:10 Troponin T 120 Minute 36.72 ng/L (0-15) H 09/02/23 00:17 Delta Troponin T -7.28 ABS# (0-10) L 09/02/23 00:17 Troponin T Hi Sens 6Hr 23.20 ng/L (0-15) H 09/02/23 03:34 Troponin T Hi Sens 6Hr Delta -20.80 ng/L (0-12) L 09/02/23 03:34 NT-Pro-B Natriuret Pep 2677 pg/mL (0-125) H 09/01/23 22:10 Total Protein 7.3 g/dL (6.6-8.7) 09/01/23 22:10 Albumin 4.1 g/dL (3.5-5.2) 09/01/23 22:10 Globulin 3.2 g/dL (1.3-4.6) 09/01/23 22:10 Vitamin B12 410 pg/mL (232-1245) 09/02/23 03:34 TSH 1.16 uIU/mL (0.27-4.20) 09/02/23 03:34 Other data: 1. The EKG shows Normal sinus rhythm with left bundle branch block pattern. No acute ST-T changes. 2. Echocardiogram done on 09/02/2023 diffuse hypokinesia of the left ventricule with an ejection fraction of 33%. Moderately dilated LV cavity. Mild concentric left trickle hypertrophy.Grade III/IV diastolic dysfunction (restrictive filling pattern), severely elevated filling pressures. Mildly dilated right atrium and moderately dilated left atrium Moderate-severe mitral valve regurgitation. Minimally thickened aortic and mitral valves. Trace to mild tricuspid valve regurgitation. Estimated pulmonary artery peak systolic pressure 33 mmHg There is no pericardial effusion. There are no intracardiac masses. No similar previous studies are available for comparison Chest x-ray done on 09/01/2023 1. Moderate globular cardiomegaly consistent with 4-chamber enlargment and/or pericardial effusion. 2. Mild bilateral peribronchial thickening and mild perihilar linear markings consistent with bronchitis and/or viral pneumonitis and/or reactive airway disease and/or atypical pulmonary interstitial edema. A&P Assessment and plan (1) New onset of congestive heart failure: Patient has dilated cardiomyopathy with a diminished ejection fraction of 33%. The etiology is not clear. In view of his risk factors, possibility of underlying coronary disease causing this is a consideration. Since the patient has no chest pain or any ischemic changes, a nonischemic cardiomyopathy is a likely possibility. (2) Hypertension: Patient has a history of uncontrolled blood pressure. Currently the systolic blood pressure seems to be minimally elevated. Will optimize antihypertensive medications. Qualifiers: Hypertension type: primary hypertension Qualified Code(s): I10 - Essential (primary) hypertension (3) Left bundle branch block (LBBB) on electrocardiogram: This seems to be new. No evidence of any high degree AV block. (4) Moderate to severe mitral regurgitation: This may need to be better evaluated by a SHASHANK. We may consider this at a later time. (5) History of CVA (cerebrovascular accident) without residual deficits: Currently the patient has no residual effect. Currently he never had any workup for the stroke. Will go ahead and do a carotid Doppler examination to further evaluate. (6) Smoking addiction: Patient strongly advised to quit smoking. Cardiovascular implications were discussed. Plan Based on the results of the above tests and the patient's clinical progress, further recommendations will be made. We may consider doing a right and left heart catheterization with the coronary angiogram, once the heart failure is properly treated. Thank you for the opportunity to evaluate this patient and make these recommendations Consult Attestations 2 Medical Necessity Statement: Patient requires continued hospital stay for close monitoring and further management Coding Level of Care Code 16722 Diagnoses New onset of congestive heart failure I50.9 Primary hypertension I10 Hypertension type: primary hypertension Left bundle branch block (LBBB) on electrocardiogram I44.7 Moderate to severe mitral regurgitation I34.0 History of CVA (cerebrovascular accident) without residual deficits Z86.73 Smoking addiction F17.200
[2023-09-02] MEDS: spironolactone 25 mg Tablet PO (10:44)
--- NOTE | 2023-09-02 12:25 | PM.MISC ---
Miscellaneous Note Note: seen today echo shows 33% EF consult cardiology plan for diuresis and cath in AM discussed with cardiology transfer to cardiac floor
[2023-09-02] MEDS: diphenhydrAMINE 50 mg Capsule PO (14:37)
[2023-09-02] MEDS: aspirin 325 mg Tablet PO (14:37)
[2023-09-02] MEDS: sodium chloride 0.9% 1,000 ML 50 ML IV (14:39)
--- NOTE | 2023-09-02 16:00 | PC.NURSE ---
Addendum entered by Padmini Low RN 09/02/23 16:03: Told the charge nurse what the patient stated. Charge nurse letting physician know patient is refusing. Original Note: Spoke with patient about Cath procedure. Patient is refusing to sign consent. States it is not the heart, not having surgery, demands a CT of lungs, positive he has lung cancer. His friend was diagnosed with lung cancer after a CT and patient is absolutely certain there is cancer in the lungs.
--- NOTE | 2023-09-02 16:08 | CTR_ITS ---
PROCEDURE INFORMATION: Exam: CT Chest Without Contrast; Diagnostic Exam date and time: 09/02/2023 4:23 PM Age: 58 years old Clinical indication: Shortness of breath TECHNIQUE: Imaging protocol: Diagnostic computed tomography of the chest without contrast. Radiation optimization: All CT scans at this facility use at least one of these dose optimization techniques: automated exposure control; mA and/or kV adjustment per patient size (includes targeted exams where dose is matched to clinical indication); or iterative reconstruction. COMPARISON: CR (CHEST, ) 09/01/2023 10:44 PM RADIATION DOSE METRICS: Total DLP (mGy-cm): 584.53 FINDINGS: Lungs: Both lungs demonstrate very mild pulmonary edema. Round atelectasis involves the left lung base. No lung mass. Pleural spaces: Small right pleural effusion noted. Heart: Prominent cardiomegaly is noted. Coronary arteries: Coronary artery calcifications are noted. Lymph nodes: Unremarkable. No enlarged lymph nodes. Vasculature: Unremarkable. No aortic aneurysm. Bones/joints: Unremarkable. No acute fracture. Soft tissues: Unremarkable. CT/CT chest con [id number] IMPRESSION: Mild CHF
--- NOTE | 2023-09-02 17:55 | PC.NURSE ---
Called Dr. 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 Dr. Browning stated to give 100 mg lovenox injection tonight then hold.
[2023-09-02] MEDS: metoprolol tartrate 25 mg Tablet PO (20:28)
[2023-09-03] VITALS (19 sets, daily range): BP systolic 111–168; BP diastolic 70–106; PULSE 47–86; RESP 14–27; TEMP 36.6–36.8; O2SAT 91–100
[2023-09-03 04:43] LABS: Basophils % 0.1 %; Eosinophils % 0.3 %; Hematocrit 41.4 % (37-53); Lymphocytes % 29.6 %; Mean Corpuscular HGB Conc 32.9 g/dL (30-55); Mean Corpuscular Hemoglobin 30.4 pg (27-33); Mean Corpuscular Volume 92.6 fl (82-101); Mean Platelet Volume 10.2 fL (7.4-10.4); Monocytes # 0.7 10^3/uL (0.2-0.9); Monocytes % 9.8 %; Neutrophils # 4.03 10^3/uL (1.8-7.7); Neutrophils % 59.9 %; Nucleated Red Blood Cells % 0 %; Platelet Count 226 10^3/cmm (157-399); Red Blood Count 4.47 10^6/uL (3.85-5.65); Red Cell Distribution Width 14.6 % (12.1-15.1); White Blood Count 6.73 10^3/uL (3.29-11.43)
[2023-09-03 05:03] LABS: Anion Gap 13.1 (5-19); Blood Urea Nitrogen 22 mg/dL (6-20); Carbon Dioxide 23 mmol/L (22-29); Chloride 109 mmol/L (98-107); Creatinine Clr Calc Pharmacy 89.5139; Glomerular Filtration Rate 76.7 mL/min (90-130); Glucose 115 mg/dL (65-115); Magnesium 2.4 mg/dL (1.7-2.3); Osmolality Calculated 296 mOsm/kg (285-295); Phosphorus 2.8 mg/dL (2.5-4.5); Potassium 4.1 mmol/L (3.5-5.1); Sodium 141 mmol/L (136-145)
[2023-09-03] MEDS: FUROsemide 10 mg/mL SDV 4mL 40 MG IVP (05:29)
--- NOTE | 2023-09-03 06:10 | XACV_ITS ---
Exam Room: [facility] Ht: 173 cm Wt: 92 kg BSA: 2.13 m2 Gender: Male : 1965 Any Known Allergies: No known allergies Exam Priority: Routine Procedure(s): Procedure Description: Diagnostic procedure Procedure Description: Left Heart Catheterization Procedure Description: Right Heart Catheterization Procedure Description: O2 saturation Procedure Description: Coronary Angiography Nam APONTE; Diagnostic Cath Status: Urgent Diagnostic Findings * The left main is a medium to large caliber vessel with no significant stenotic lesion. * The left anterior descending artery is a medium to large caliber vessel which appears to wrap around the LV apex. It gives off a high diagonal branch which bifurcates near the ostium. No significant lesions were noted. * The left circumflex artery is a medium caliber nondominant vessel with no significant stenotic lesions. * The right coronary artery is a large-caliber dominant vessel with no significant stenotic lesions. Conclusions 1. Cardiac Catheterization study revealed Empty, Empty and Empty. 2. This is a 58-year-old white male presenting with progressive shortness of breath and features of congestive heart failure. The transthoracic echocardiogram revealed ejection fraction of around 33%. In view of the patient's multiple risk factors and the presenting symptoms, in order to further evaluate his coronary arteries and hemodynamics, a right and left heart catheterization with right and left coronary angiogram was recommended. The patient underwent these procedures today. The findings are as follows.. 3. 1. Normal coronary arteries with no significant obstructive coronary lesions. #2 the LVEDP was 40 mmHg. LV angiogram was not performed because of the high LVEDP.3. Right heart catheterization revealed pulmonary artery pressure of 85/44 with a mean of 61, suggesting severe pulmonary hypertension. The pulmonary capillary wedge pressure was 45. RV pressure was 84/15 and the mean right atrial pressure was 22 mmHg. Diagnostic RX Recommendation: medical therapy and/or counseling LV EDP: 40 mmHg Left Ventriculography Findings: * LV gram was not performed because of high LVEDP of 40 mmHg. Pressures Phase:Rest AO : 220 / 103 ( 135 ) @ 8:29:00 AM 129 / 93 ( 113 ) @ 8:33:00 AM 124 / 93 ( 108 ) @ 8:34:00 AM 163 / 90 ( 120 ) @ 8:43:00 AM 159 / 92 ( 117 ) @ 8:44:00 AM LV : 163 / 15 / 40 @ 8:43:00 AM 160 / 13 / 43 @ 8:43:00 AM 160 / 12 / 38 @ 8:43:00 AM RV : 84 / 15 / 27 @ 8:22:00 AM PA : 85 / 44 ( 61 ) @ 8:17:00 AM 87 / 46 ( 62 ) @ 8:19:00 AM RA : a wave = 29 v wave = 26 mean = 22 @ 8:23:00 AM PCW : a wave = 39 v wave = 59 mean = 45 @ 8:19:00 AM a wave = 46 v wave = 67 mean = 50 @ 8:20:00 AM a wave = 53 v wave = 57 mean = 52 @ 8:20:00 AM a wave = 49 v wave = 47 mean = 47 @ 8:20:00 AM O2 Content Phase:Rest PA : O2 Content O2: 62.8 @ 8:43:00 AM Saturations Phase:Rest AO : 94 @ 8:34:00 AM RA : 66 @ 8:33:00 AM RV : 67 @ 8:29:00 AM PA : 63 @ 8:43:00 AM Cardiac Output Phase:Rest Betina : 4 @ 7:59:05 AM Betina Cardiac Index: 2 @ 7:59:05 AM Flow Phase:Rest Qp : 4 @ 7:59:05 AM Qs : 5 @ 7:59:05 AM Valves Phase:DefaultPhase AV : 0.0 @ 7:59:05 AM 0.0 @ 7:59:05 AM AV Mean Gradient: 0.0 @ 7:59:05 AM 0.0 @ 7:59:05 AM AV Flow: 242 @ 7:59:05 AM Clinical Evaluation EBL: 5mL-10mL Procedural Details Pre-Procedure Time Out. Identified patient by full name and date of as verbalized by the patient/guarantor. Does the consent match the physician's order: Yes. Accurate & Complete Informed Consent: Yes. Inpatient/Outpatient History & Physical on Chart: Yes. If H&P is completed, is and addenduem needed: No; If yes, is the addendum complete: N/A. Visualize and Verify Site with Patient/Guarantor: N/A. Relevant Radiology Images available: Yes. Pre-op teaching completed and patient verbalized understanding. The risks, benefits, and alternatives of sedation and/or procedure were discussed by physician. The patient agrees to continue. Procedure started. [facility] Clinical Fraility Score: 4: Vulnerable. Effervescent Salts Compounder Indications: Other. Chest Pain Symptom Assessment: Non-anginal Chest Pain. Correct patient, site and procedure confirmed by cath team. PERRLA. Strong, equal hand limerock tower loader bilaterally. Lungs clear x 5 lobes. IV Site on Arrival: 18 gauge in the left anticubital. IV Site on Arrival: 18 gauge in the right anticubital. IV Fluids: 0.9% NaCl at KVO. 0 mL infused prior to cath laboratory technician. right groin was prepped with chloroprep then draped in the usual sterile fashion. right radial was prepped with chloroprep then draped in the usual sterile fashion. right brachial was prepped with chloroprep then draped in the usual sterile fashion. Baseline sample Acquired. HR: 83 BPM. Physician arrived. Oxygen started at 2liters/min via nasal canula. Physician scrubbed in. Immediate Pre-Procedure Time Out. Correct Patient: Yes; Correct Procedure: Yes; Correct Site: Yes; Correct Patient Position: Yes; Correct Supplies: Yes; Dried Flammable Prep: Yes; Blood Products Available: Yes;. Lidocaine 1% infiltrated to the right brachial. Sheath wire inserted through the right brachial IV catheter. IV catheter out OTW. Wall-Denis MON catheter inserted. 0.025 wire out. Wire out. Oximetry samples were obtained. Normal venous range: 60-85%. Normal arterial range: 95-100%. Pressure measurements obtained. Wall-Denis out. Lidocaine 1% infiltrated to the right radial. Arterial access obtained. ABG drawn and sent with respiratory therapy. A 5 argentine Kana catheter in over wire. Multiple views taken of left coronary artery. Catheter redirected to the RCA. Multiple views taken of right coronary artery. Catheter removed over the exchange wire. A 5 argentine Angled Pig catheter in over wire. EDP Sample taken: LV 163/15,40; HR: 76 BPM; SpO2: 91%. EDP Sample taken: LV 160/13,43; HR: 77 BPM; SpO2: 89%. Pullback taken: LV 160/12,38; AO 163/90(120); Mean: 0mmHg, Peak to Peak: 0mmHg, SEP: 18sec/min; HR: 76 BPM; SpO2: 90%. Physician review of cine films. Physician scrubbed out. A TR Band was successful obtaining hemostatsis at the Right Radial artery insertion site. A Manual Compression was successful obtaining hemostatsis at the Right Brachial Vein insertion site. Post Procedure: Pulses reassessed and unchanged. PERRLA. Strong, equal hand limerock tower loader bilaterally. No VTE prophylaxis required. Medication's Wasted: Other = Fentanyl 50mcg Versed 1 mg. Medication's Wasted: Heparin = 1000 units. Medication's Wasted: Lidocaine 1% = 14 mL. Total IV fluids: 60 mL. Complications: None. Estimated blood loss: 5mL-10mL. Responsiveness - Normal response to verbal stimuli; alert and oriented, PERRLA. Vital chart was stopped. Airway - Unaffected, no intervention required; spontaneous ventilation. Circulation: W/N/L, pulses unchanged. Nausea/Vomiting: No. Procedure completed. Patient transferred by wheelchair to ICU. Access Site Site: Right Brachial Vein Sheath Size: 6 Fr Hemostasis Method: Manual Compression Hemostasis Success: Successful Site: Right Radial artery Sheath Size: 6 Fr Hemostasis Method: TR Band Hemostasis Success: Successful Procedure Medications Start: 7:09 AM Stop: 7:09 AM Medication: Versed Amount: 1 mg Route: I.V. Start: 7:14 AM Stop: 7:14 AM Medication: Hydralazine Amount: 20 mg Route: I.V. Start: 7:18 AM Stop: 7:18 AM Medication: Versed Amount: 1 mg Route: I.V. Start: 7:23 AM Stop: 7:23 AM Medication: Versed Amount: 1 mg Route: I.V. Start: 7:26 AM Stop: 7: AM Medication: Fentanyl Amount: 25 mcg Route: I.V. Start: 7:30 AM Stop: 7:30 AM Medication: Nitrogylcerin Amount: 200 mcg Route: I.A. Start: 7:30 AM Stop: 7:30 AM Medication: Verapamil Amount: 5 mg Route: I.A. Start: 7:34 AM Stop: 7:34 AM Medication: Heparin Amount: 5000 units Route: I.V. Start: 7:36 AM Stop: 7:36 AM Medication: Fentanyl Amount: 25 mcg Route: I.V. I, the attending physician, have reviewed and verified all procedure medications. Yes, all medications given per verbal order History/Risk Factors Hypertension: Yes Dyslipidemia: No Peripheral Arterial Disease (PAD): No Myocardial Infarction (OR): No Obesity: No Renal Disease: No Tobacco Use: Current/Recent(w/in 1 year) Prior Interventions PCI: No CABG: No Valve Surgery: No Report Signatures Finalized by Dr Johnie Browning MD [facility] on 09/06/2023 04:39 PM
--- NOTE | 2023-09-03 06:49 | P.PN_ITS ---
Subjective 2 Subjective: Patient is feeling okay. Still has significant shortness of breath with activities but lungs are sounding clear Medications: Medication Review Details: Current Medications Acetaminophen (Acetaminophen 500 Mg Tablet) 500 mg PO Q4H PRN PRN Reason: fever Albuterol/Ipratropium (Ipratropium-Albuterol 3 Ml Neb) 3 ml INHALATION Q6H PRN PRN Reason: SHORTNESS OF BREATH Aspirin (Aspirin 81 Mg Ec Tablet) 81 mg PO DAILY [facility] Last Admin: 09/02/23 09:00 Dose: 81 mg Atorvastatin Calcium (Atorvastatin 40 Mg Tablet) 80 mg PO DAILY [facility] Last Admin: 09/02/23 09:01 Dose: 80 mg Enoxaparin Sodium (Enoxaparin 100 Mg/Ml Syringe) 100 mg SUBCUT Q12H [facility] Last Admin: 09/02/23 17:54 Dose: 100 mg Furosemide (Furosemide 10 Mg/Ml Sdv 4ml) 40 mg IVP Q24H [facility] Last Admin: 09/03/23 05:29 Dose: 40 mg Sodium Chloride (Sodium Chloride 0.9%) 1,000 mls @ 50 mls/hr IV .Q20H ONE Stop: 09/03/23 09:56 Last Admin: 09/02/23 14:39 Dose: 50 mls/hr Lisinopril (Lisinopril 10 Mg Tablet) 10 mg PO DAILY [facility] Last Admin: 09/02/23 09:01 Dose: 10 mg Metoprolol Tartrate (Metoprolol Tartrate 25 Mg Tablet) 25 mg PO BID@0900,2100 [facility] Last Admin: 09/02/23 20:28 Dose: 25 mg Ondansetron HCl (Ondansetron 2 Mg/Ml Sdv 2 Ml) 4 mg IVP Q6H PRN PRN Reason: NAUSEA AND VOMITING Senna/Docusate Sodium (Sennosides-Docusate Tablet) 1 tab PO DAILY [facility] Last Admin: 09/02/23 09:00 Dose: 1 tab Spironolactone (Spironolactone 25 Mg Tablet) 25 mg PO DAILY [facility] Last Admin: 09/02/23 10:44 Dose: 25 mg Vitals/I&O/Wt Last Vital Signs Temp 98.3 F 09/03/23 05:00 Pulse 67 09/03/23 06:00 Resp 22 H 09/03/23 06:00 BP 140/99 09/03/23 06:00 Pulse Ox 95 09/03/23 04:00 O2 Del Method Room Air 09/02/23 09:31 09/02/23 09/02/23 09/03/23 14:59 22:59 06:59 Intake Total 360 / 360 840 / 1200 Balance 360 / 360 840 / 1200 Weight last 48 hrs Weight 203 lb Weight 207 lb Weight 207 lb Weight 200 lb Physical Exam 2 Narrative: GENERAL: The patient is alert and oriented times three. Not in any acute distress. HEENT: No significant pallor, icterus or lymphadenopathy.Oral cavity: There are no mucous membrane lesions. NECK: Trachea appears to be central. No masses noted. No JVD or thyromegaly appreciated. RESPIRATORY: Chest is symmetrical. No intercostals muscle retraction or any accessory muscle activation. There is no chest wall tenderness. Breath sounds are heard bilaterally. No rales or rhonchi heard. No evidence of any consolidation. BREASTS: Deferred. HEART: The heart sounds are normal. No S3 or S4. Systolic murmur grade 4/6 in the mitral area. No diastolic murmurs. No pericardial rub ABDOMEN: No vessel pulsations or distention. No tenderness. No organomegaly appreciated. Bowel sounds are normally heard. : Deferred. RECTAL: Deferred. LYMPHATIC: No lymphadenopathy noted in the neck. EXTREMITIES: Warm visiting with no cyanosis. Peripheral pulses are palpable in good volume and amplitude MUSCULOSKELETAL: No acute joint deformities or swelling SKIN: There are no significant rashes or ecchymosis NEUROPSYCHIATRIC: The patient is alert and oriented x3. Appears to be in a good mood. No tremors or rigidity noted. Data 09/03/23 04:18 09/03/23 04:18 Other Labs: Laboratory Last Values WBC 6.73 10^3/uL (3.29-11.43) 09/03/23 04:18 RBC 4.47 10^6/uL (3.85-5.65) 09/03/23 04:18 Hgb 13.60 g/dL (11.27-16.99) 09/03/23 04:18 Hct 41.4 % (37-53) 09/03/23 04:18 MCV 92.6 fl (82-101) 09/03/23 04:18 MCH 30.4 pg (27-33) 09/03/23 04:18 MCHC 32.9 g/dL (30-55) 09/03/23 04:18 RDW 14.6 % (12.1-15.1) 09/03/23 04:18 Plt Count 226 10^3/cmm (157-399) 09/03/23 04:18 MPV 10.2 fL (7.4-10.4) 09/03/23 04:18 Neut % (Auto) 59.9 % 09/03/23 04:18 Lymph % (Auto) 29.6 % 09/03/23 04:18 [place] % (Auto) 9.8 % 09/03/23 04:18 Eos % (Auto) 0.3 % 09/03/23 04:18 Baso % (Auto) 0.1 % 09/03/23 04:18 Neut # (Auto) 4.03 10^3/uL (1.8-7.7) 09/03/23 04:18 Lymph # (Auto) 2.0 10^3/uL (0.8-4.8) 09/03/23 04:18 [place] # (Auto) 0.7 10^3/uL (0.2-0.9) 09/03/23 04:18 Eos # (Auto) 0.0 10^3/uL (0.0-0.8) 09/03/23 04:18 Baso # (Auto) 0.0 10^3/uL (0.0-0.1) 09/03/23 04:18 Nucleated RBC % (auto) 0 % 09/03/23 04:18 Nucleated RBCs # 0.0 /100WBC 09/03/23 04:18 PT 13.30 SECONDS (12.1-14.9) 09/01/23 22:10 INR 0.98 (0.8-1.2) 09/01/23 22:10 APTT 29.1 SECONDS (23.9-36.7) 09/01/23 22:10 D-Dimer 0.79 ug/mLFEU (0-0.59) H 09/01/23 22:10 Specimen Type Not specified 09/03/23 07:32 Camron Test N/a 09/03/23 07:32 A-a O2 Gradient 8.7 mmHg (5-10) 09/03/23 07:30 Hematocrit 40.2 % (42-52) L 09/03/23 07:32 Hgb O2 Saturation 65.3 % (95-100) L 09/03/23 07:32 Carboxyhemoglobin 1.9 %THgb (0.4-20.1) 09/03/23 07:32 Methemoglobin 0.6 % (0.4-1.5) 09/03/23 07:32 Total Hemoglobin 13.1 g/dL (14-18) L 09/03/23 07:32 [place] Wet Process ID [place] 09/03/23 07:32 Sodium 141 mmol/L (136-145) 09/03/23 04:18 Potassium 4.1 mmol/L (3.5-5.1) 09/03/23 04:18 Chloride 109 mmol/L (98-107) H 09/03/23 04:18 Carbon Dioxide 23 mmol/L (22-29) 09/03/23 04:18 Anion Gap 13.1 (5-19) 09/03/23 04:18 BUN 22 mg/dL (6-20) H 09/03/23 04:18 Creatinine 1.0 mg/dL (0.7-1.2) 09/03/23 04:18 GFR Calculation 76.7 mL/min (90-130) L 09/03/23 04:18 Glucose 115 mg/dL (65-115) 09/03/23 04:18 Estimat Average Glucose 94 09/02/23 03:34 Hemoglobin A1c 4.9 % (4.0-6.0) 09/02/23 03:34 Calculated Osmolality 296 mOsm/kg (285-295) H 09/03/23 04:18 Calcium 8.0 mg/dL (8.5-10.5) L 09/03/23 04:18 Phosphorus 2.8 mg/dL (2.5-4.5) 09/03/23 04:18 Magnesium 2.4 mg/dL (1.7-2.3) H 09/03/23 04:18 Total Bilirubin 0.3 mg/dL (0.15-1.2) 09/01/23 22:10 AST 19 U/L (0-40) 09/01/23 22:10 ALT 11 U/L (0-41) 09/01/23 22:10 Alkaline Phosphatase 71 U/L (40-130) 09/01/23 22:10 Lactate Dehydrogenase 143 U/L (135-225) 09/02/23 03:34 Creatine Kinase 117 U/L (39-308) 09/02/23 03:34 Troponin T Baseline 44 ng/L (0-15) H 09/01/23 22:10 Troponin T 120 Minute 36.72 ng/L (0-15) H 09/02/23 00:17 Delta Troponin T -7.28 ABS# (0-10) L 09/02/23 00:17 Troponin T Hi Sens 6Hr 23.20 ng/L (0-15) H 09/02/23 03:34 Troponin T Hi Sens 6Hr Delta -20.80 ng/L (0-12) L 09/02/23 03:34 NT-Pro-B Natriuret Pep 2677 pg/mL (0-125) H 09/01/23 22:10 Total Protein 7.3 g/dL (6.6-8.7) 09/01/23 22:10 Albumin 4.1 g/dL (3.5-5.2) 09/01/23 22:10 Globulin 3.2 g/dL (1.3-4.6) 09/01/23 22:10 Vitamin B12 410 pg/mL (232-1245) 09/02/23 03:34 TSH 1.16 uIU/mL (0.27-4.20) 09/02/23 03:34 A&P Assessment and plan (1) New onset of congestive heart failure: Patient has dilated cardiomyopathy with a diminished ejection fraction of 33%. The etiology is not clear. In view of his risk factors, possibility of underlying coronary disease causing this is a consideration. Since the patient has no chest pain or any ischemic changes, a nonischemic cardiomyopathy is a likely possibility. Left and right heart catheterization today. (2) Hypertension: Patient has a history of uncontrolled blood pressure. Currently the systolic blood pressure seems to be minimally elevated. Will optimize antihypertensive medications. Qualifiers: Hypertension type: primary hypertension Qualified Code(s): I10 - Essential (primary) hypertension (3) Left bundle branch block (LBBB) on electrocardiogram: This seems to be new. No evidence of any high degree AV block. (4) Moderate to severe mitral regurgitation: This may need to be better evaluated by a SHASHANK. We may consider this at a later time. (5) History of CVA (cerebrovascular accident) without residual deficits: Currently the patient has no residual effect. Currently he never had any workup for the stroke. Will go ahead and do a carotid Doppler examination to further evaluate. (6) Smoking addiction: Patient strongly advised to quit smoking. Cardiovascular implications were discussed. Plan The need for the cardiac authorization, risk and benefits were discussed The risk of bleeding, hematoma, vascular injury, myocardial infarction, myocardial perforation, malignant cardiac arrhythmias ,CVA, renal failure and other concomitant complications were explained in detail. If the patient requires any complex coronary intervention or open heart surgery, he needs to be transferred to a different facility. This also was discussed with the patient which he understood well and consented to proceed. All his questions were answered to his satisfaction Cardiac catheterization today Based on the results of the above tests and the patient's clinical progress, further recommendations will be made. Attestations 2 Medical Necessity Statement*: Patient requires continued hospital stay for close monitoring and further management Coding Level of Care Code 45599 Diagnoses New onset of congestive heart failure I50.9 Primary hypertension I10 Hypertension type: primary hypertension Left bundle branch block (LBBB) on electrocardiogram I44.7 Moderate to severe mitral regurgitation I34.0 History of CVA (cerebrovascular accident) without residual deficits Z86.73 Smoking addiction F17.200
--- NOTE | 2023-09-03 06:50 | W.PM.OPSUD ---
Surgery/Procedure H&P Update DATE OF PROCEDURE: September 03, 2023 DATE H&P PERFORMED: 09/02/23 H&P UPDATE INFORMATION: I have reviewed H&P completed within last 30 days, I have examined patient prior to procedure and No changes to prior documentation PREOP DIAGNOSIS: Suspected CAD/cardiomyopathy PRIMARY INDICATION FOR PROCEDURE: Congestive heart failure/cardiomyopathy/left bundle branch block PLANNED PROCEDURE: Operation Date: 09/03/23 07:00 Proposed Procedures p Cardiac Catheterization(Bilateral) - Johnie Browning MD PATIENT REASSESSED PRIOR TO SEDATION, WITH NO CHANGE NOTED: Yes PHYSICAL EXAM: alert, oriented x 3 and clear to auscultation bilaterally AIRWAY EVAL/ANESTHESIA PLAN: normal airway, see other exam findings, ASA IV, Local Anesthesia, Risks, benefits & alternatives of sedation and/or procedure discussed and Patient agrees to continue as planned
--- NOTE | 2023-09-03 07:11 | PC.NURSE ---
To analytical lab analyst via wheel chair accompanied by scientific laboratory supervisor team at [id number]
[2023-09-03 07:37] LABS: Alveolar-Arterial Oxygen Gradi 8.5 mmHg (5-10); Arterial Blood Gas Hematocrit 44.8 % (42-52); Blood Gas Operator Identificat WALCI; Blood Gas Sample Type Arterial; Carboxyhemoglobin 1.9 %THgb (0.4-20.1); HGB O2 Sat 61.4 % (95-100); Methemoglobin 0.4 % (0.4-1.5); Total Hemoglobin 14.6 g/dL (14-18)
[2023-09-03 07:39] LABS: Alveolar-Arterial Oxygen Gradi 5.7 mmHg (5-10); Arterial Blood Gas Hematocrit 43.7 % (42-52); Blood Gas Operator Identificat WALCI; Blood Gas Sample Type Arterial; Carboxyhemoglobin 1.9 %THgb (0.4-20.1); HGB O2 Sat 91.5 % (95-100); Methemoglobin 0.6 % (0.4-1.5); Total Hemoglobin 14.3 g/dL (14-18)
[2023-09-03 07:41] LABS: Alveolar-Arterial Oxygen Gradi 8.7 mmHg (5-10); Arterial Blood Gas Hematocrit 36.2 % (42-52); Blood Gas Operator Identificat WALCI; Blood Gas Sample Type Not specified; Carboxyhemoglobin 1.9 %THgb (0.4-20.1); HGB O2 Sat 64.6 % (95-100); Methemoglobin 0.4 % (0.4-1.5); Total Hemoglobin 11.8 g/dL (14-18)
[2023-09-03 07:43] LABS: Arterial Blood Gas Hematocrit 40.2 % (42-52); Blood Gas Operator Identificat WALCI; Blood Gas Sample Type Not specified; Carboxyhemoglobin 1.9 %THgb (0.4-20.1); HGB O2 Sat 65.3 % (95-100); Methemoglobin 0.6 % (0.4-1.5); Total Hemoglobin 13.1 g/dL (14-18)
--- NOTE | 2023-09-03 08:47 | PC.NURSE ---
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
[2023-09-03] MEDS: lisinopril 10 mg Tablet PO (08:51)
[2023-09-03] MEDS: spironolactone 25 mg Tablet PO (08:51)
[2023-09-03] MEDS: metoprolol tartrate 25 mg Tablet PO (08:51)
[2023-09-03] MEDS: aspirin 81 mg EC Tablet PO (08:52)
[2023-09-03] MEDS: atorvastatin 40 mg Tablet 80 MG PO (08:52)
[2023-09-03] MEDS: sennosides-docusate Tablet 1 TAB PO (08:52)
--- NOTE | 2023-09-03 10:35 | PC.NURSE ---
Addendum entered by Dennis Woodard RN 09/03/23 10:38: Patient willing to stay until this afternoon in order to do home O2 eval and for TR band to come off. Original Note: AMOsei Garcia in room discussing care with patient, wants him to stay another day for further work up. Patient states he has to go home today to feed his dogs and will leave AMA. Patient pleasant but adamant that he will go home. Doctor and nurse asked if there is anyone else who can feed his dogs. Patient states his brother has been feeding them but his brother works today and can't.
--- NOTE | 2023-09-03 13:12 | PM.DCS ---
Discharge Providers Date of Admission: 09/02/23 01:55 Date of Discharge: September 03, 2023 Attending Provider at Admission: London Braga MD Attending Provider at Discharge: Josefina Garcia MD Primary Care Provider: Kip Howard MD Diagnoses at Discharge Discharge Diagnosis (1) New onset of congestive heart failure: Status: Acute (2) Hypertension: Status: Acute Qualifiers: Hypertension type: primary hypertension Qualified Code(s): I10 - Essential (primary) hypertension (3) Left bundle branch block (LBBB) on electrocardiogram: Status: Acute (4) Moderate to severe mitral regurgitation: Status: Acute (5) History of CVA (cerebrovascular accident) without residual deficits: Status: Acute (6) Smoking addiction: Status: Acute Reason for Visit Reason for Visit: cp/sob Brief History: left ama Hospital Course Hospital Course left ama Discharge Data Studies Completed and Pending Completed Studies During Hospitalization Category Date Time Status CT chest wo con [id number] Routine Cat Scan 09/02/23 16:08 Completed XR chest 1V portable [id number] Stat Exams 09/01/23 22:41 Completed CV. echo complete* [id number] Routine Ultrasound 09/02/23 05:47 Completed Pending at discharge Category Date Time Status RESCUE BOAT OPERATOR request for service Urgent Exams 09/03/23 06:10 Taken ABG Coox Only Routine Lab 09/03/23 07:26 Results ABG Coox Only Routine Lab 09/03/23 07:32 Results Radiology Impressions Chest X-Ray 09/01/23 22:41 IMPRESSION: 1. Moderate globular cardiomegaly consistent with 4-chamber enlargment and/or pericardial effusion. 2. Mild bilateral peribronchial thickening and mild perihilar linear markings consistent with bronchitis and/or viral pneumonitis and/or reactive airway disease and/or atypical pulmonary interstitial edema. Chest CT 09/02/23 16:08 IMPRESSION: Mild CHF Laboratory Results WBC 6.73 10^3/uL (3.29-11.43) 09/03/23 04:18 RBC 4.47 10^6/uL (3.85-5.65) 09/03/23 04:18 Hgb 13.60 g/dL (11.27-16.99) 09/03/23 04:18 Hct 41.4 % (37-53) 09/03/23 04:18 MCV 92.6 fl (82-101) 09/03/23 04:18 MCH 30.4 pg (27-33) 09/03/23 04:18 MCHC 32.9 g/dL (30-55) 09/03/23 04:18 RDW 14.6 % (12.1-15.1) 09/03/23 04:18 Plt Count 226 10^3/cmm (157-399) 09/03/23 04:18 MPV 10.2 fL (7.4-10.4) 09/03/23 04:18 Neut % (Auto) 59.9 % 09/03/23 04:18 Lymph % (Auto) 29.6 % 09/03/23 04:18 Wright % (Auto) 9.8 % 09/03/23 04:18 Eos % (Auto) 0.3 % 09/03/23 04:18 Baso % (Auto) 0.1 % 09/03/23 04:18 Neut # (Auto) 4.03 10^3/uL (1.8-7.7) 09/03/23 04:18 Lymph # (Auto) 2.0 10^3/uL (0.8-4.8) 09/03/23 04:18 [place] # (Auto) 0.7 10^3/uL (0.2-0.9) 09/03/23 04:18 Eos # (Auto) 0.0 10^3/uL (0.0-0.8) 09/03/23 04:18 Baso # (Auto) 0.0 10^3/uL (0.0-0.1) 09/03/23 04:18 Nucleated RBC % (auto) 0 % 09/03/23 04:18 Nucleated RBCs # 0.0 /100WBC 09/03/23 04:18 PT 13.30 SECONDS (12.1-14.9) 09/01/23 22:10 INR 0.98 (0.8-1.2) 09/01/23 22:10 APTT 29.1 SECONDS (23.9-36.7) 09/01/23 22:10 D-Dimer 0.79 ug/mLFEU (0-0.59) H 09/01/23 22:10 Specimen Type Not specified 09/03/23 07:32 Sample Site Not Reportable 09/03/23 07:30 Camron Test N/a 09/03/23 07:32 A-a O2 Gradient 8.7 mmHg (5-10) 09/03/23 07:30 Hematocrit 40.2 % (42-52) L 09/03/23 07:32 Hgb O2 Saturation 65.3 % (95-100) L 09/03/23 07:32 Carboxyhemoglobin 1.9 %THgb (0.4-20.1) 09/03/23 07:32 Methemoglobin 0.6 % (0.4-1.5) 09/03/23 07:32 Total Hemoglobin 13.1 g/dL (14-18) L 09/03/23 07:32 O2 Delivery Device Not Reportable 09/03/23 07:32 Assembly Department Supervisor ID Lily 09/03/23 07:32 Sodium 141 mmol/L (136-145) 09/03/23 04:18 Potassium 4.1 mmol/L (3.5-5.1) 09/03/23 04:18 Chloride 109 mmol/L (98-107) H 09/03/23 04:18 Carbon Dioxide 23 mmol/L (22-29) 09/03/23 04:18 Anion Gap 13.1 (5-19) 09/03/23 04:18 BUN 22 mg/dL (6-20) H 09/03/23 04:18 Creatinine 1.0 mg/dL (0.7-1.2) 09/03/23 04:18 GFR Calculation 76.7 mL/min (90-130) L 09/03/23 04:18 Glucose 115 mg/dL (65-115) 09/03/23 04:18 Estimat Average Glucose 94 09/02/23 03:34 Hemoglobin A1c 4.9 % (4.0-6.0) 09/02/23 03:34 Calculated Osmolality 296 mOsm/kg (285-295) H 09/03/23 04:18 Calcium 8.0 mg/dL (8.5-10.5) L 09/03/23 04:18 Phosphorus 2.8 mg/dL (2.5-4.5) 09/03/23 04:18 Magnesium 2.4 mg/dL (1.7-2.3) H 09/03/23 04:18 Total Bilirubin 0.3 mg/dL (0.15-1.2) 09/01/23 22:10 AST 19 U/L (0-40) 09/01/23 22:10 ALT 11 U/L (0-41) 09/01/23 22:10 Alkaline Phosphatase 71 U/L (40-130) 09/01/23 22:10 Lactate Dehydrogenase 143 U/L (135-225) 09/02/23 03:34 Creatine Kinase 117 U/L (39-308) 09/02/23 03:34 Troponin T Baseline 44 ng/L (0-15) H 09/01/23 22:10 Troponin T 120 Minute 36.72 ng/L (0-15) H 09/02/23 00:17 Delta Troponin T -7.28 ABS# (0-10) L 09/02/23 00:17 Troponin T Hi Sens 6Hr 23.20 ng/L (0-15) H 09/02/23 03:34 Troponin T Hi Sens 6Hr Delta -20.80 ng/L (0-12) L 09/02/23 03:34 NT-Pro-B Natriuret Pep 2677 pg/mL (0-125) H 09/01/23 22:10 Total Protein 7.3 g/dL (6.6-8.7) 09/01/23 22:10 Albumin 4.1 g/dL (3.5-5.2) 09/01/23 22:10 Globulin 3.2 g/dL (1.3-4.6) 09/01/23 22:10 Vitamin B12 410 pg/mL (232-1245) 09/02/23 03:34 TSH 1.16 uIU/mL (0.27-4.20) 09/02/23 03:34 Vitals Last Vital Signs Temp 98.3 F 09/03/23 05:00 Pulse 62 09/03/23 11:00 Resp 25 H 09/03/23 11:00 BP 111/72 09/03/23 11:00 Pulse Ox 97 09/03/23 11:00 O2 Del Method Room Air 09/03/23 11:00 O2 Flow Rate 0 09/03/23 11:00 Discharge Plan Discharge Patient Disposition: Left Against Medical Advice Condition: Stable Prescriptions: New atorvastatin 40 mg Tablet 40 mg PO DAILY Qty: 30 0RF aspirin 81 mg Tablet,Delayed Release (Dr/Ec) 81 mg PO DAILY Qty: 30 0RF spironolactone 25 mg Tablet 25 mg PO DAILY Qty: 30 0RF lisinopril 10 mg Tablet 2.5 mg PO DAILY Qty: 30 0RF metoprolol tartrate 25 mg Tablet 25 mg PO BID@0900,2100 Qty: 60 0RF albuterol sulfate 90 mcg/actuation HFA aerosol inhaler 2 inh inhalation Q6H PRN (Reason: shortness of breath or wheezing) Qty: 8.5 0RF Lasix 40 mg tablet 40 mg PO QAM Qty: 30 0RF potassium chloride 10 mEq capsule, extended release 10 meq PO DAILY Qty: 30 0RF Other Ambulatory Orders: DME: Life Vest (Order) Timeframe: 1 Day Location: None Selected Ordered By: Josefina Garcia Referrals: Kip Howard MD [Primary Care Provider] - 09/07/23 1:00 pm Johnie Browning MD [Physician] - 1 month (when you see Josette,she will make an appt for you to see Dr Browning) Josette Sy FNP [Nurse Practitioner] - 09/17/23 1:30 pm Discharge Diet: Cardiac and Diabetic Discharge Activity: Oxygen as instructed Patient Instructions: Metoprolol (By mouth), Spironolactone (By mouth), Lisinopril (By mouth), Furosemide (By mouth), Albuterol (By breathing), Potassium Chloride (By mouth), Aspirin (By mouth), Atorvastatin (By mouth), Heart Healthy Diet (DC), Basic Carbohydrate Counting (DC) Discharge Attestations Time Spent in Discharge Care*: less than 30 min Quality Metrics Clinical Quality Measures [ No reported AMI, CVA or VTE this stay] Coding Level of Care Code 63509 Total time (in minutes) for Discharge: 25 Diagnoses New onset of congestive heart failure I50.9 Primary hypertension I10 Hypertension type: primary hypertension Left bundle branch block (LBBB) on electrocardiogram I44.7 Moderate to severe mitral regurgitation I34.0 History of CVA (cerebrovascular accident) without residual deficits Z86.73 Smoking addiction F17.200
--- NOTE | 2023-09-03 13:29 | PC.SOCIAL ---
Choice Sheet Per Dr. Garcia during rounds, patient will likely DC home tomorrow. CM to room and spoke to patient he reports he does not wear O2 @ baseline. Choice sheet completed and placed in chart. He reports his mom will be picking him up @ DC.
--- NOTE | 2023-09-03 13:57 | PC.NURSE ---
1300 TR band off, pressure dressing applied due to patient going to be leaving AMA soon. No bleeding/hematoma formation
--- NOTE | 2023-09-03 13:58 | PC.NURSE ---
AMA/Discharge Patient leaving AMA. Dr. Garcia prescribed medications for patient and made appointments for patient but told patient he would be leaving against medical advice and wanted him to stay another day or two. Patient refused to stay. Prescriptions given to patient, instructions given, life vest to be taken to patient's home and done outpatient. IV removed. Patient and family ambulated to private vehicle, accompanied by this nurse.
--- NOTE | 2023-09-03 14:04 | PC.SOCIAL ---
O2 Patient has DC'd home and was weaned off O2 prior to DC.
== END 2023-09-03 13:50 | disposition left against medical advice (07) | DRG 287 ==
LOC: ER 09-02 01:37 → ICU 09-02 01:56
PROVIDERS: Internal Medicine Cardiovascular Disease; Admitting Provider Internal Medicine; Emergency Provider Emergency Medicine; PCP Family Medicine Adult Medicine; Visit Provider Internal Medicine
DX: I11.0 Hypertensive heart disease with heart failure (principal); I50.9 Heart failure, unspecified; I44.7 Left bundle-branch block, unspecified; F17.210 Nicotine dependence, cigarettes, uncomplicated; I34.0 Nonrheumatic mitral (valve) insufficiency; Z86.73 Personal history of transient ischemic attack (TIA), and cerebral infarction without residual deficits; F15.11 Other stimulant abuse, in remission
CPT/HCPCS: 36415; 71045; 71250; 80048; 80053; 82550; 82607; 82810; 83036; 83615; 83735; 83880; 84100; 84443; 84484; 85025; 85378; 85610; 85730; 93005; 93306; 93460; 96361; 96372; 96374; 96375; 96376; 99152; 99153; 99285; C1751; C1769; C1887; C1894; J0360; J1644; J1650; J1940; J2250; J2270; J2405; J3010; J3490; J7030; Q0163; Q9967

== ENCOUNTER → 2023-09-17 14:05 | Outpatient (BNVA) | payer MEDICAID, SELFPAY | PROVIDERS: PCP Family Medicine Adult Medicine; Visit Provider Nurse Practitioner Family | DX: I50.9 Heart failure, unspecified (principal) | CPT/HCPCS: 36415; 80048; 83880 ==

== ENCOUNTER 2023-11-19 13:56 | Outpatient (CLI) | payer MEDICAID, SELFPAY ==
--- NOTE | 2023-11-19 14:08 | USCV_ITS ---
Jude Lemon Age: 58 Gender: M : 1965 Exam Date: 11/19/2023 14:40 Ordering Phys: Josette Sy Technologist: SELWYN [place] [facility] [place] LVEF LIMITED ONLY FOR ICD BP: 137 / 85 HR: 82 Rhythm: Sinus Technical Quality: Adequate MEASUREMENTS (Male / Female) Normal Values 2D ECHO LV Diastolic Diameter PLAX 6.5 cm 4.2 - 5.9 / 3.9 - 5.3 cm IVS Diastolic Thickness 1.5 cm 0.6 - 1.0 / 0.6 - 0.9 cm IVS Systolic Thickness 2.0 cm LVPW Diastolic Thickness 2.1 cm 0.6 - 1.0 / 0.6 - 0.9 cm LVPW Systolic Thickness 2.9 cm LVOT Diameter 2.1 cm LV Ejection Fraction 2D Teich 27.3 % LV Ejection Fraction MOD 4C 24.9 % LV Ejection Fraction MOD 2C 31.2 % LV Ejection Fraction 2C AL 30.1 % LA Diameter 4.4 cm RA Systolic Volume 4C AL 39.0 ml RA Systolic Volume 4C MOD 36.8 ml LA Sys Volume AL 55.5 cm cubed LA Sys Volume Index AL 26.3 cm cubed/m squared Aorta at Sinotubular Diameter 3.3 cm IVC Diameter 1.3 cm M-MODE LA Ao Ratio MM 0.8 AV Cusp Separation MM 2.2 cm FINDINGS Left Ventricle Mildly dilated left ventricular. Severe diffuse hypokinesia with an ejection fraction of 30%. Right Ventricle Normal right ventricular size and systolic function. Right Atrium Normal right atrial size Left Atrium Mildly increased left atrial size. Mitral Valve No gross abnormalities noted . Aortic Valve No gross abnormalities noted . Tricuspid Valve No gross abnormalities noted . Pulmonic Valve No gross abnormalities noted . Pericardium No pericardial effusion. Aorta Normal aortic annulus size. IVC Inferior vena cava not visualized. CONCLUSIONS Severe diffuse hypokinesia of the left ventricle with ejection fraction of 30% Mildly increased left atrial size. There is no pericardial effusion. There are no intracardiac masses. Compared to the study from 09/02/2023, there may not be a significant change in the 2D findings Dr Johnie Browning MD [facility] (Electronically Signed) Final Date: 20 November 2023 08:13 S
== END 2023-11-19 13:57 | disposition home or self-care (01) ==
LOC: RAD 13:59
PROVIDERS: PCP Family Medicine Adult Medicine; Visit Provider Nurse Practitioner Family
DX: I50.9 Heart failure, unspecified (principal); I51.7 Cardiomegaly
CPT/HCPCS: 93308

== ENCOUNTER 2024-01-04 21:58 | Emergency (ER) | payer MEDICAID, SELFPAY ==
[2024-01-04 22:09] VITALS: BP 132/86; PULSE 79; RESP 14; TEMP 36.6; O2SAT 98
--- NOTE | 2024-01-04 22:17 | ECG_ITS ---
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 Measurements Intervals [place] Rate: 71 P: 13 MT: 170 QRS: -18 QRSD: 208 T: 128 QT: 498 QTc: 542 Interpretive Statements SINUS RHYTHM WITH OCCASIONAL VENTRICULAR PREMATURE COMPLEXES INTRAVENTRICULAR CONDUCTION DELAY [130+ ms QRS DURATION] Compared to ECG 09/02/2023 00:05:31 Ventricular premature complex(es) now present Intraventricular conduction delay now present Left bundle-branch block no longer present Electronically Signed On 01-05-2024 7:20:12 CDT by Bjorn Watkins M.D. [id number]
--- NOTE | 2024-01-04 22:18 | XRR_ITS ---
PROCEDURE INFORMATION: Exam: XR Chest Exam date and time: 01/04/2024 10:31 PM Age: 58 years old Clinical indication: Shortness of breath; Patient HX: SOB; Copd; PT has lifevest on-unable to remove TECHNIQUE: Imaging protocol: Radiologic exam of the chest. Views: 1 view. COMPARISON: CT chest con [id number] 09/02/2023 4:23 PM FINDINGS: Lungs: No focal consolidation. Pleural spaces: Unremarkable. No pleural effusion. No pneumothorax. Previous pulmonary vascular congestion and pleural effusion has resolved since 09/01/2023. Heart/Mediastinum: Borderline cardiac silhouette enlargement improved from cardiomegaly on 09/01/2023. Lifevest overlies the chest. Bones/joints: No acute abnormality. XR/XR chest 1V portable [id number] IMPRESSION: Borderline cardiac silhouette size, improved from cardiomegaly on 09/01/2023. No overt CHF on plain radiography.
[2024-01-04 22:25] LABS: Basophils # 0.1 10^3/uL (0.0-0.1); Basophils % 0.6 %; Eosinophils # 0.1 10^3/uL (0.0-0.8); Eosinophils % 0.9 %; Hematocrit 45.1 % (37-53); Lymphocytes # 3.7 10^3/uL (0.8-4.8); Lymphocytes % 47.1 %; Mean Corpuscular HGB Conc 34.1 g/dL (30-55); Mean Corpuscular Hemoglobin 31.5 pg (27-33); Mean Corpuscular Volume 92.2 fl (82-101); Mean Platelet Volume 9.5 fL (7.4-10.4); Monocytes # 0.8 10^3/uL (0.2-0.9); Monocytes % 10.4 %; Neutrophils % 40.6 %; Nucleated Red Blood Cells % 0 %; Platelet Count 251 10^3/cmm (157-399); Red Blood Count 4.89 10^6/uL (3.85-5.65); Red Cell Distribution Width 14.3 % (12.1-15.1); White Blood Count 7.88 10^3/uL (3.29-11.43)
[2024-01-04 22:41] LABS: ABG PH Result 7.41 (7.35-7.45); Arterial Blood Gas Hematocrit 48.8 % (42-52); Base Excess ABG -3.4 mmol/L (-2.0-2.0); Blood Gas Operator Identificat SAM; Blood Gas Sample Site Brachial, right; Blood Gas Sample Type Arterial; HCO3 ABG 20.2 mmol/L (22-26); HGB O2 Sat 87.4 % (95-100); PO2 ABG 66.1 mmHg (80.0-100.0); PO2 FiO2 Ratio Arterial Blood 314; Total Hemoglobin 15.9 g/dL (14-18)
[2024-01-04 22:42] LABS: INR 0.99 (0.8-1.2)
[2024-01-04 22:43] VITALS: BP 140/84; PULSE 82; RESP 22; O2SAT 94
[2024-01-04 22:48] VITALS: BP 140/84; PULSE 75; RESP 24; O2SAT 93
[2024-01-04 22:49] LABS: Lactic Sepsis W/Reflex 4.1 mmol/L (0.5-2.2)
[2024-01-04 22:57] LABS: Alanine Aminotransferase 9 U/L (0-41); Albumin Level 3.8 g/dL (3.5-5.2); Alkaline Phosphatase 63 U/L (40-130); Anion Gap 20.6 (5-19); Aspartate Amino Transferase 16 U/L (0-40); Blood Urea Nitrogen 11 mg/dL (6-20); Calcium 8.6 mg/dL (8.5-10.5); Carbon Dioxide 17 mmol/L (22-29); Chloride 103 mmol/L (98-107); Globulin 2.9 g/dL (1.3-4.6); Glomerular Filtration Rate 86.7 mL/min (90-130); Glucose 83 mg/dL (65-115); NT Pro B Type Natriuretic Pept 4596 pg/mL (0-125); Osmolality Calculated 283 mOsm/kg (285-295); Potassium 3.6 mmol/L (3.5-5.1); Sodium 137 mmol/L (136-145); Total Bilirubin 0.2 mg/dL (0.15-1.2); Total Protein 6.7 g/dL (6.6-8.7)
--- NOTE | 2024-01-04 23:00 | ED_ITS ---
HPI - SOB/Dyspnea 2 General: Chief Complaint: Shortness of Breath/Dyspnea Stated Complaint: SOB Time Seen by Provider: 01/04/24 21:59 History of Present Illness: HPI Narrative: 58-year-old male with history of congest david heart failure, nonischemic. His EF is 30%. He presents with shortness of breath, headache, achiness, and some sputum production. No significant chest pain. Unknown if fever. No sick contacts. Related Data Previous Rx's Medication Instructions Recorded atorvastatin 40 mg tablet 40 mg PO DAILY #30 tabs 09/03/23 furosemide 40 mg tablet (Lasix) 40 mg PO QAM #90 tabs 09/28/23 albuterol sulfate 90 mcg/actuation 2 inh inhalation Q6H PRN shortness 10/10/23 aerosol inhaler of breath or wheezing #8.5 grams aspirin 81 mg tablet,delayed 81 mg PO DAILY #30 tabs 10/10/23 release lisinopril 10 mg tablet 5 mg (1/2 x 10 mg) PO DAILY #30 10/10/23 tabs metoprolol tartrate 25 mg tablet 25 mg PO BID@0900,2100 #60 tabs 10/10/23 potassium chloride 10 mEq 10 meq PO DAILY #30 caps 10/10/23 capsule,extended release spironolactone 25 mg tablet 25 mg PO DAILY heart #30 tabs 10/10/23 albuterol sulfate 90 mcg/actuation 2 inh inhalation Q4H PRN shortness 01/05/24 aerosol inhaler of breath or wheezing #6.7 grams doxycycline hyclate 100 mg tablet 100 mg PO BID 7 days #14 tabs 01/05/24 methylprednisolone 4 mg tablets in See Rx Instructions PO .COMPLEX 01/05/24 a dose pack (Medrol (Yonny)) #21 ea Allergies Allergy/AdvReac Type Severity Reaction Status Date / Time No Known Allergies Allergy Verified 11/22/23 10:21 PFS ED 2 PFSH: Medical History New onset of congestive heart failure Osteoarthritis involving multiple joints on both sides of body back & shoulder Chronic pain back & shoulder Hypertension Family History Father No problems noted. Mother No problems noted. Social History Smoking and tobacco/nicotine status: current every day tobacco/nicotine user Alcohol intake: current Alcohol intake frequency: 3 or more drinks per day Alcohol type: beer Substance/Drug Use: former Physical Exam 2 Const: COMMON NORMALS: no acute distress GENERAL APPEARANCE: cooperative; not ill appearing and not frail appearing HENMT: COMMON NORMALS: normocephalic, atraumatic and Normal external nose present HEAD & SCALP: normocephalic and atraumatic FACE & SINUS: normal facial exam and face symmetric NOSE: Normal external nose present Eye: COMMON NORMALS: Equal, round and reactive pupils present and EOMs intact bilaterally PUPIL: Yes Equal, round and reactive pupils present Neck/C-Spine: GENERAL: Yes trachea midline Chest: CHEST: Yes Symmetrical chest wall rise Resp: COMMON NORMALS: normal respiratory effort, No retractions, No use of accessory muscles and clear to auscultation bilaterally AUSCULTATION: clear to auscultation bilaterally and diminished lung sounds Cardio: COMMON NORMALS: regular rate and regular rhythm RATE: regular rate RHYTHM: regular rhythm GI: COMMON NORMALS: Normal to inspection, nondistended, normoactive bowel sounds present Extremity: COMMON NORMALS: no pedal edema Neuro: ALLIE COMA SCALE: document GCS findings [place] coma scale eye opening: Spontaneous [place] coma scale verbal response: Orientated [place] coma scale motor response: Obey commands Allie coma scale total score: 15 S ENSORY EXAM: Yes extremities (intact) Psych: COMMON NORMALS: speech normal SPEECH: Yes normal speech Skin: COMMON NORMALS: no rashes or lesions noted GENERAL SKIN EXAM: no rashes or lesions noted Course 2 Vital Signs: Vital signs: Vital Signs Temperature 98 F 01/04/24 22:09 Pulse Rate 70 01/05/24 00:30 Respiratory Rate 22 H 01/05/24 00:30 Blood Pressure 127/80 01/04/24 23:30 Pulse Oximetry 93 01/05/24 00:30 Oxygen Delivery Me thod Room Air 01/04/24 23:30 MDM - SOB/Dyspnea Medical Decision Making Vitals are stable on room air. CBC is normal. Bicarb is 17. Lactic acid is 4.1. BNP is 4600. pH is 7.4 with a pO2 of 66 and pCO2 of 32. Hemoglobin is 15. No white count. Chest x-ray is much improved from prior. No overt CHF or infiltrate present. Despite lactic acid, patient does not appear septic. He has put out over a liter here. He is breathing room air. He is somewhat wheezy. Suspect bronchitis over acute pulmonary edema given physical exam, CXR findings, etc. He will go home on steroids, inhaler, abx. To continue medication for HF. Stable for discharge. Return for any worsening symptoms. Lab Data 01/04/24 22:20 01/04/24 22:20 Labs/Radiology: Radiology Impressions Chest X-Ray 01/04/24 22:18 IMPRESSION: Borderline cardiac silhouette size, improved from cardiomegaly on 09/01/2023. No overt CHF on plain radiography. Laboratory Results WBC 7.88 10^3/uL (3.29-11.43) 01/04/24 22:20 RBC 4.89 10^6/uL (3.85-5.65) 01/04/24 22:20 Hgb 15.40 g/dL (11.27-16.99) 01/04/24 22:20 Hct 45.1 % (37-53) 01/04/24 22:20 MCV 92.2 fl (82-101) 01/04/24 22:20 MCH 31.5 pg (27-33) 01/04/24 22:20 MCHC 34.1 g/dL (30-55) 01/04/24 22:20 RDW 14.3 % (12.1-15.1) 01/04/24 22:20 Plt Count 251 10^3/cmm (157-399) 01/04/24 22:20 MPV 9.5 fL (7.4-10.4) 01/04/24 22:20 Neut % (Auto) 40.6 % 01/04/24 22:20 Lymph % (Auto) 47.1 % 01/04/24 22:20 [place] % (Auto) 10.4 % 01/04/24 22:20 Eos % (Auto) 0.9 % 01/04/24 22:20 Baso % (Auto) 0.6 % 01/04/24 22:20 Neut # (Auto) 3.20 10^3/uL (1.8-7.7) 01/04/24 22:20 Lymph # (Auto) 3.7 10^3/uL (0.8-4.8) 01/04/24 22:20 [place] # (Auto) 0.8 10^3/uL (0.2-0.9) 01/04/24 22:20 Eos # (Auto) 0.1 10^3/uL (0.0-0.8) 01/04/24 22:20 Baso # (Auto) 0.1 10^3/uL (0.0-0.1) 01/04/24 22:20 Nucleated RBC % (auto) 0 % 01/04/24 22:20 Nucleated RBCs # 0.0 /100WBC 01/04/24 22:20 PT 13.40 SECONDS (12.1-14.9) 01/04/24 22:20 INR 0.99 (0.8-1.2) 01/04/24 22:20 Specimen Type Arterial 01/04/24 22:32 Sample Site Brachial, right 01/04/24 22:32 ABG pH 7.41 (7.35-7.45) 01/04/24 22:32 ABG pCO2 32.0 mmHg (35-45) L 01/04/24 22:32 ABG pO2 66.1 mmHg (80.0-100.0) L 01/04/24 22:32 ABG PO2/FiO2 Ratio 314 01/04/24 22:32 ABG HCO3 20.2 mmol/L (22-26) L 01/04/24 22:32 ABG Base Excess -3.4 mmol/L (-2.0-2.0) L 01/04/24 22:32 Camron Test N/a 01/04/24 22:32 Hematocrit 48.8 % (42-52) 01/04/24 22:32 Hgb O2 Saturation 87.4 % (95-100) L 01/04/24 22:32 Carboxyhemoglobin 7.0 %THgb (0.4-20.1) 01/04/24 22:32 Methemoglobin 0.0 % (0.4-1.5) L 01/04/24 22:32 Total Hemoglobin 15.9 g/dL (14-18) 01/04/24 22:32 O2 Delivery Device None 01/04/24 22:32 FiO2 21.0 % 01/04/24 22:32 Rocket Engine Mechanic ID Michael 01/04/24 22:32 Sodium 137 mmol/L (136-145) 01/04/24 22:20 Potassium 3.6 mmol/L (3.5-5.1) 01/04/24 22:20 Chloride 103 mmol/L (98-107) 01/04/24 22:20 Carbon Dioxide 17 mmol/L (22-29) L 01/04/24 22:20 Anion Gap 20.6 (5-19) H 01/04/24 22:20 BUN 11 mg/dL (6-20) 01/04/24 22:20 Creatinine 0.9 mg/dL (0.7-1.2) 01/04/24 22:20 GFR Calculation 86.7 mL/min (90-130) L 01/04/24 22:20 Glucose 83 mg/dL (65-115) 01/04/24 22:20 Calculated Osmolality 283 mOsm/kg (285-295) L 01/04/24 22:20 Lactic Acid 4.1 mmol/L (0.5-2.2) H* 01/04/24 22:20 Lactic Acid (Sepsis) 2.4 mmol/L (0.5-2.2) H 01/05/24 00:21 Calcium 8.6 mg/dL (8.5-10.5) 01/04/24 22:20 Total Bilirubin 0.2 mg/dL (0.15-1.2) 01/04/24 22:20 AST 16 U/L (0-40) 01/04/24 22:20 ALT 9 U/L (0-41) 01/04/24 22:20 Alkaline Phosphatase 63 U/L (40-130) 01/04/24 22:20 NT-Pro-B Natriuret Pep 4596 pg/mL (0-125) H 01/04/24 22:20 Total Protein 6.7 g/dL (6.6-8.7) 01/04/24 22:20 Albumin 3.8 g/dL (3.5-5.2) 01/04/24 22:20 Globulin 2.9 g/dL (1.3-4.6) 01/04/24 22:20 Adenovirus (PCR) Not detected (NOT DETECT) 01/04/24 22:45 C. pneumoniae DNA (PCR) Not detected (NOT DETECT) 01/04/24 22:45 Coronavirus 229E (PCR) Not detected (NOT DETECT) 01/04/24 22:45 Human Metapneumovir PCR Not detected (NOT DETECT) 01/04/24 22:45 Influenza A (H1) PCR Not detected (NOT DETECT) 01/04/24 22:45 Influ A (H1/09) PCR Not detected (NOT DETECT) 01/04/24 22:45 Influenza A (H3) PCR Not detected (NOT DETECT) 01/04/24 22:45 Influenza Type A (PCR) Not detected (NOT DETECT) 01/04/24 22:45 Influenza Type B (PCR) Not detected (NOT DETECT) 01/04/24 22:45 M. pneumoniae (PCR) Not detected (NOT DETECT) 01/04/24 22:45 Parainfluenza 1 (PCR) Not detected (NOT DETECT) 01/04/24 22:45 Parainfluenza 2 (PCR) Not detected (NOT DETECT) 01/04/24 22:45 Parainfluenza 3 (PCR) Not detected (NOT DETECT) 01/04/24 22:45 Parainfluenza 4 (PCR) Not detected (NOT DETECT) 01/04/24 22:45 RSV Type A (PCR) Not detected (NOT DETECT) 01/04/24 22:45 RSV Type B (PCR) Not detected (NOT DETECT) 01/04/24 22:45 Entero/Rhino (PCR) Not detected (NOT DETECT) 01/04/24 22:45 SARS-CoV-2 (PCR) Not detected (NOT DETECT) 01/04/24 22:45 All radiology interpretation(s) finalized by discharge Discharge Plan Discharge Patient Disposition: Home Clinical Impression: Acute bronchitis Condition: Stable Prescriptions: New Medrol (Yonny) 4 mg tablets,dose pack See Rx Instructions .ROUTE .COMPLEX Qty: 21 0RF Rx Instructions: orally per package directions doxycycline hyclate 100 mg tablet 100 mg PO BID 7 Days Qty: 14 0RF albuterol sulfate 90 mcg/actuation HFA aerosol inhaler 2 inh INHALATION Q4H PRN (Reason: shortness of breath or wheezing) Qty: 6.7 1RF No Action lisinopril 10 mg tablet 5 mg PO DAILY Qty: 30 5RF metoprolol tartrate 25 mg tablet 25 mg PO BID@0900,2100 Qty: 60 5RF potassium chloride 10 mEq capsule, extended release 10 meq PO DAILY Qty: 30 5RF spironolactone 25 mg tablet 25 mg PO DAILY Qty: 30 5RF aspirin 81 mg tablet,delayed release (DR/EC) 81 mg PO DAILY Qty: 30 5RF albuterol sulfate 90 mcg/actuation HFA aerosol inhaler 2 inh inhalation Q6H PRN (Reason: shortness of breath or wheezing) Qty: 8.5 2RF Lasix 40 mg tablet 40 mg PO QAM Qty: 90 3RF atorvastatin 40 mg Tablet 40 mg PO DAILY Qty: 30 0RF Discharge Orders: Discharge ED (Routine); Ordered 01/05/24 Ordered By: Osmel Padgett Referrals: Kip Howard MD [Primary Care Provider] - 1-3 days Patient Instructions: Acute Bronchitis (ED), Opioid Safety, Pain Management Activity Restrictions/Additional Instructions: Medications as directed. Use the inhaler every 4 hours while awake for the first 48 hours whether you feel short of breath or not. You may use it as needed following that. Return for worsening shortness of breath despite treatment, fever despite 2-3 more doses of antibiotics, other concerning symptoms. See your doctor next week. Coding Level of Care Code ED Template Reproduction Technician for Sangeetha Cruz
[2024-01-04 23:30] VITALS: BP 127/80; PULSE 72; RESP 20; O2SAT 90
[2024-01-04] MEDS: FUROsemide 10 mg/mL SDV 10mL 60 MG IVP (23:30)
[2024-01-05 00:11] LABS: Reflex Lactate Order REFLEX LACTIC ORDERD
[2024-01-05 00:30] VITALS: PULSE 70; RESP 22; O2SAT 93
[2024-01-05 00:40] LABS: Lactic Acid level (Lactate) 2.4 mmol/L (0.5-2.2)
[2024-01-05 00:42] LABS: Adenovirus Not Detected (NOT DETECT); Chlamydia Pneumoniae Not Detected (NOT DETECT); Coronavirus 229E,HKU1,NL63,OC4 Not Detected (NOT DETECT); Human Metapneumovirus Not Detected (NOT DETECT); Human Rhinovirus/Enterovirus Not Detected (NOT DETECT); Influenza A Not Detected (NOT DETECT); Influenza A H1 Not Detected (NOT DETECT); Influenza A H1-2009 Not Detected (NOT DETECT); Influenza A H3 Not Detected (NOT DETECT); Influenza B Not Detected (NOT DETECT); Mycoplasma Pneumoniae Not Detected (NOT DETECT); Parainfluenza Virus Type 1 Not Detected (NOT DETECT); Parainfluenza Virus Type 2 Not Detected (NOT DETECT); Parainfluenza Virus Type 3 Not Detected (NOT DETECT); Parainfluenza Virus Type 4 Not Detected (NOT DETECT); Respiratory Syncytial Virus A Not Detected (NOT DETECT); Respiratory Syncytial Virus B Not Detected (NOT DETECT); SARS-COV-2 Not Detected (NOT DETECT)
[2024-01-05] MEDS: methylPREDNISolone sod succ 125 mg/2 mL INJ 80 MG IVP (00:47)
[2024-01-05] MEDS: doxycycline 100 mg Tablet PO (00:47)
== END 2024-01-05 01:06 | disposition home or self-care (01) ==
PROVIDERS: Emergency Provider Emergency Medicine; PCP Family Medicine Adult Medicine
DX: J20.9 Acute bronchitis, unspecified (principal); Z79.82 Long term (current) use of aspirin; Z11.52 Encounter for screening for COVID-19; Z72.0 Tobacco use; I11.0 Hypertensive heart disease with heart failure; I50.9 Heart failure, unspecified
CPT/HCPCS: 36415; 36600; 71045; 80053; 82805; 83605; 83880; 85025; 85610; 87040; 87205; 87486; 87581; 87633; 93005; 96374; 96375; 99285; J1940; J2919

== ENCOUNTER 2024-05-08 05:19 | Inpatient (IN) | payer MEDICAID, SELFPAY ==
[2024-05-08] VITALS (27 sets, daily range): BP systolic 92–170; BP diastolic 52–109; PULSE 54–111; RESP 15–40; TEMP 36.3–36.8; O2SAT 87–100
--- NOTE | 2024-05-08 05:22 | ECG_ITS ---
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 Measurements Intervals [place] Rate: 109 P: -55 [place]: 119 QRS: -38 QRSD: 194 T: 82 QT: 401 QTc: 542 Interpretive Statements ECTOPIC ATRIAL TACHYCARDIA WITH SHORT [place] INTERVAL LEFT AXIS DEVIATION [QRS AXIS < -30] LEFT BUNDLE BRANCH BLOCK [120+ ms QRS DURATION, 80+ ms Q/S IN V1/V2, 85+ ms R IN I/aVL/V5/V6] Compared to ECG 01/04/2024 22:17:23 Short [place] interval now present Left-axis deviation now present Left bundle-branch block now present Sinus rhythm no longer present Ventricular premature complex(es) no longer present Intraventricular conduction delay no longer present Electronically Signed On 05-08-2024 12:21:31 AUTOMOBILE UPHOLSTERY TRIM INSTALLER by Bjorn Watkins M.D. [id number]
--- NOTE | 2024-05-08 05:22 | XRR_ITS ---
PROCEDURE INFORMATION: Exam: XR Chest Exam date and time: 05/08/2024 5:31 AM Age: 59 years old Clinical indication: Dyspnea and shortness of breath TECHNIQUE: Imaging protocol: Radiologic exam of the chest. Views: 1 view. COMPARISON: CR XR chest 1V portable [id number] 01/04/2024 10:31 PM FINDINGS: Lungs: COPD changes with increased right upper and basilar lobe ill-defined opacities. Few Adriana B-lines are associated of the lung bases. Pleural spaces: Blunting of the bilateral costophrenic angles concerning for miniscule bilateral pleural effusions. Heart/Mediastinum: Unremarkable. No cardiomegaly. Bones/joints: Diffuse degenerative change of the visualized osseous structures. XR/XR chest 1V portable [id number] IMPRESSION: Findings suggestive of CHF, infection is difficult to exclude.
--- NOTE | 2024-05-08 05:25 | ED_ITS ---
Documented by User: Ben DO Juan M 05/08/24 05:31 HPI - SOB/Dyspnea 2 General: Chief Complaint: Shortness of Breath/Dyspnea Stated Complaint: RESP. DISTRESS Time Seen by Provider: 05/08/24 05:22 Source: EMS Mode of arrival: EMS Limitations: other (Severe dyspnea) History of Present Illness: HPI Narrative: Patient arrives via EMS 15 L per nonrebreather with O2 sat of oxygen proximal 87 percent. Patient is having increased work to breathe. Patient does have a history of CHF, ejection fraction of approximately 30%, severe mitral regurg, severe pulmonary hypertension, left bundle branch block, per EMS patient started get short of breath around 4 AM they arrived on scene about 5 AM saw patient with extreme dyspnea. They gave 1 albuterol treatment 1 DuoNeb treatment, gave Decadron 20 mg, terbutaline 25 mg, and brought the patient to the ER for further evaluation. EMS said the patient smokes 2 packs/day. Does not have home oxygen. Patient sees Dr. Browning at the last appointment on 01/10/2024, he had echo on 11/19/2023, showed ejection fraction of about 30%, Related Data Home Medications Medication Instructions Recorded Confirmed lisinopril 10 mg tablet 5 mg PO DAILY 05/08/24 05/08/24 Previous Rx's Medication Instructions Recorded atorvastatin 40 mg tablet 40 mg PO DAILY #30 tabs 09/03/23 furosemide 40 mg tablet (Lasix) 40 mg PO QAM #90 tabs 09/28/23 aspirin 81 mg tablet,delayed 81 mg PO DAILY #30 tabs 10/10/23 release metoprolol tartrate 25 mg tablet 25 mg PO BID@0900,2100 #60 tabs 10/10/23 potassium chloride 10 mEq 10 meq PO DAILY #30 caps 10/10/23 capsule,extended release spironolactone 25 mg tablet 25 mg PO DAILY heart #30 tabs 10/10/23 albuterol sulfate 90 mcg/actuation 2 inh inhalation Q4H PRN shortness 01/05/24 aerosol inhaler of breath or wheezing #6.7 grams empagliflozin 10 mg tablet 10 mg PO DAILY 30 days #30 tabs 01/10/24 (Jardiance) sacubitril 24 mg-valsartan 26 mg 1 tab PO BID #60 tabs 01/10/24 tablet (Entresto) Allergies Allergy/AdvReac Type Severity Reaction Status Date / Time No Known Allergies Allergy Verified 05/08/24 05:28 Review of Systems 2 General: Reports: 10 or more systems reviewed and unremarkable except in HPI and below PFSH ED 2 PFSH: Medical History New onset of congestive heart failure Osteoarthritis involving multiple joints on both sides of body back & shoulder Chronic pain back & shoulder Hypertension Family History Father No problems noted. Mother No problems noted. Social History Smoking and tobacco/nicotine status: current every day tobacco/nicotine user Alcohol intake: current Alcohol intake frequency: 3 or more drinks per day Alcohol type: beer Substance/Drug Use: former Physical Exam 2 Const: COMMON NORMALS: average body habitus, healthy appearing, alert and well nourished; apparent distress (Moderate distress) HENMT: COMMON NORMALS: normocephalic, atraumatic, hearing grossly normal bilaterally, external ears normal, Normal external nose present and moist oral mucous membranes HEAD & SCALP: normocephalic and atraumatic NOSE: Normal external nose present EXTERNAL EAR: Yes external ears normal Neck/C-Spine: COMMON NORMALS: no JVD Chest: COMMONS NORMALS: normal inspection of the chest and normal palpation of entire chest wall Resp: COMMON NORMALS: clear to auscultation bilaterally (Prominent Rales bilaterally with decreased breath sounds); negative for normal respiratory effort (Increased respiratory effort tachypneic) and negative for No use of accessory muscles (Increase use of accessory muscles) AUSCULTATION: clear to auscultation bilaterally (Prominent Rales bilaterally with decreased breath sounds) Cardio: COMMON NORMALS: no JVD, regular rhythm, S1 normal heart sound present, S2 normal heart sound present and No gallops present (Cardio); negative for regular rate (Mildly tachycardic) RATE: abnormal rate (Mildly tachycardic) RHYTHM: regular rhythm HEART SOUNDS: S1 normal heart sound present and S2 normal heart sound present GI: COMMON NORMALS: Normal to inspection, nondistended, normoactive bowel sounds present, Soft to palpation, non-tender, No hepatosplenomegaly present and no masses PALPATION: Yes Soft to palpation and Yes No hepatosplenomegaly present Neuro: SENSORIUM/ORIENTATION: Yes alert Course 2 Vital Signs: Vital signs: Vital Signs Temperature 97.6 F 05/08/24 09:18 Pulse Rate 80 05/08/24 09:18 Respiratory Rate 32 H 05/08/24 09:18 Blood Pressure 156/97 05/08/24 09:18 Pulse Oximetry 95 05/08/24 09:18 Oxygen Delivery Me thod Nasal Cannula 05/08/24 09:18 Oxygen Flow Rate 5 05/08/24 09:18 Fraction of Inspir ed Oxygen 50 05/08/24 07:13 MDM - SOB/Dyspnea Medical Records I reviewed the patient's medical records. Lab Data I reviewed the patient's lab results. 05/08/24 05:24 05/08/24 05:24 Labs/Radiology: Radiology Impressions Chest X-Ray 05/08/24 05:22 IMPRESSION: Findings suggestive of CHF, infection is difficult to exclude. Laboratory Results WBC 10.43 10^3/uL (3.29-11.43) 05/08/24 05:24 RBC 4.90 10^6/uL (3.85-5.65) 05/08/24 05:24 Hgb 15.40 g/dL (11.27-16.99) 05/08/24 05:24 Hct 47.7 % (37-53) 05/08/24 05:24 MCV 97.3 fl (82-101) 05/08/24 05:24 MCH 31.4 pg (27-33) 05/08/24 05:24 MCHC 32.3 g/dL (30-55) 05/08/24 05:24 RDW 14.6 % (12.1-15.1) 05/08/24 05:24 Plt Count 241 10^3/cmm (157-399) 05/08/24 05:24 MPV 9.3 fL (7.4-10.4) 05/08/24 05:24 Neut % (Auto) 66.4 % 05/08/24 05:24 Lymph % (Auto) 27.3 % 05/08/24 05:24 [place] % (Auto) 4.8 % 05/08/24 05:24 Eos % (Auto) 0.3 % 05/08/24 05:24 Baso % (Auto) 0.6 % 05/08/24 05:24 Neut # (Auto) 6.93 10^3/uL (1.8-7.7) 05/08/24 05:24 Lymph # (Auto) 2.9 10^3/uL (0.8-4.8) 05/08/24 05:24 [place] # (Auto) 0.5 10^3/uL (0.2-0.9) 05/08/24 05:24 Eos # (Auto) 0.0 10^3/uL (0.0-0.8) 05/08/24 05:24 Baso # (Auto) 0.1 10^3/uL (0.0-0.1) 05/08/24 05:24 Nucleated RBC % (auto) 0 % 05/08/24 05:24 Nucleated RBCs # 0.0 /100WBC 05/08/24 05:24 PT 13.10 SECONDS (12.1-14.9) 05/08/24 05:24 INR 0.93 (0.8-1.2) 05/08/24 05:24 Specimen Type Arterial 05/08/24 07:00 Sample Site Radial, left 05/08/24 07:00 ABG pH 7.36 (7.35-7.45) 05/08/24 07:00 ABG pCO2 41.7 mmHg (35-45) 05/08/24 07:00 ABG pO2 111.0 mmHg (80.0-100.0) H 05/08/24 07:00 ABG PO2/FiO2 Ratio 222 05/08/24 07:00 ABG HCO3 23.5 mmol/L (22-26) 05/08/24 07:00 ABG O2 Saturation 98.8 05/08/24 07:00 ABG Base Excess -2.0 mmol/L (-2.0-2.0) 05/08/24 07:00 Camron Test Pos 05/08/24 07:00 A-a O2 Gradient 25.6 mmHg (5-10) H 05/08/24 07:00 Hematocrit 45.1 % (42-52) 05/08/24 07:00 Hgb O2 Saturation 94.8 % (95-100) L 05/08/24 07:00 Carboxyhemoglobin 3.9 %THgb (0.4-20.1) 05/08/24 07:00 Methemoglobin 0.1 % (0.4-1.5) L 05/08/24 07:00 Total Hemoglobin 14.7 g/dL (14-18) 05/08/24 07:00 Sodium 146.0 mmol/L (131-143) H 05/08/24 07:00 Potassium 3.6 mmol/L (3.5-5.0) 05/08/24 07:00 Glucose 160.0 mg/dL (70-115) H 05/08/24 07:00 Ionized Calcium 1.1 mmol/L (1.1-1.4) 05/08/24 07:00 O2 Delivery Device Bipap 05/08/24 07:00 FiO2 50.0 % 05/08/24 07:00 Building Performance Consultant ID Monro 05/08/24 07:00 Sodium 143 mmol/L (136-145) 05/08/24 05:24 Potassium 4.3 mmol/L (3.5-5.1) 05/08/24 05:24 Chloride 109 mmol/L (98-107) H 05/08/24 05:24 Carbon Dioxide 21 mmol/L (22-29) L 05/08/24 05:24 Anion Gap 17.3 (5-19) 05/08/24 05:24 BUN 16 mg/dL (6-20) 05/08/24 05:24 Creatinine 1.1 mg/dL (0.7-1.2) 05/08/24 05:24 GFR Calculation 68.5 mL/min (90-130) L 05/08/24 05:24 Glucose 225 mg/dL (65-115) H 05/08/24 05:24 Calculated Osmolality 304 mOsm/kg (285-295) H 05/08/24 05:24 Lactic Acid 2.2 mmol/L (0.5-2.2) 05/08/24 05:24 Calcium 8.6 mg/dL (8.5-10.5) 05/08/24 05:24 Magnesium 2.0 mg/dL (1.7-2.3) 05/08/24 05:24 Total Bilirubin 0.3 mg/dL (0.15-1.2) 05/08/24 05:24 AST 45 U/L (0-40) H 05/08/24 05:24 ALT 24 U/L (0-41) 05/08/24 05:24 Alkaline Phosphatase 113 U/L (40-130) 05/08/24 05:24 Troponin T Baseline 35 ng/L (0-15) H 05/08/24 05:24 Troponin T 120 Minute 47.28 ng/L (0-15) H 05/08/24 07:24 Delta Troponin T 12.28 ABS# (0-10) H* 05/08/24 07:24 NT-Pro-B Natriuret Pep 1497 pg/mL (0-125) H 05/08/24 05:24 Total Protein 7.0 g/dL (6.6-8.7) 05/08/24 05:24 Albumin 4.2 g/dL (3.5-5.2) 05/08/24 05:24 Globulin 2.8 g/dL (1.3-4.6) 05/08/24 05:24 Procalcitonin 0.05 ng/mL (0-0.5) 05/08/24 05:24 Coronavirus (PCR) Negative (Negative) 05/08/24 05:30 Influenza A (PCR) Negative (Negative) 05/08/24 05:30 Influenza Type B (PCR) Negative (Negative) 05/08/24 05:30 RSV (PCR) Negative (Negative) 05/08/24 05:30 All radiology interpretation(s) finalized by discharge Discharge Plan Discharge Patient Disposition: Admitted As Inpatient Admit Provider: Meño Pace Clinical Impression: Systolic CHF, Moderate to severe mitral regurgitation, Cardiomyopathy, Severe pulmonary hypertension, History of CVA (cerebrovascular accident) without residual deficits, Left bundle branch block (LBBB) on electrocardiogram Condition: Stable Sign Out Sign Out Data: Patient Sign Out occurred on 05/08/24 at 06:35. Patient's care was discussed, and care was transferred from Ben Mcgowan DO to Kota Weber DO. Coding Level of Care Code ED Lcac Radar Operator/Navigator for Chg Fwd Documented by User: Kota Weber DO 05/08/24 09:25 HPI - SOB/Dyspnea 2 General: Chief Complaint: Shortness of Breath/Dyspnea Stated Complaint: RESP. DISTRESS Time Seen by Provider: 05/08/24 05:22 Related Data Home Medications Medication Instructions Recorded Confirmed lisinopril 10 mg tablet 5 mg PO DAILY 05/08/24 05/08/24 Previous Rx's Medication Instructions Recorded atorvastatin 40 mg tablet 40 mg PO DAILY #30 tabs 09/03/23 furosemide 40 mg tablet (Lasix) 40 mg PO QAM #90 tabs 09/28/23 aspirin 81 mg tablet,delayed 81 mg PO DAILY #30 tabs 10/10/23 release metoprolol tartrate 25 mg tablet 25 mg PO BID@0900,2100 #60 tabs 10/10/23 potassium chloride 10 mEq 10 meq PO DAILY #30 caps 10/10/23 capsule,extended release spironolactone 25 mg tablet 25 mg PO DAILY heart #30 tabs 10/10/23 albuterol sulfate 90 mcg/actuation 2 inh inhalation Q4H PRN shortness 01/05/24 aerosol inhaler of breath or wheezing #6.7 grams empagliflozin 10 mg tablet 10 mg PO DAILY 30 days #30 tabs 01/10/24 (Jardiance) sacubitril 24 mg-valsartan 26 mg 1 tab PO BID #60 tabs 01/10/24 tablet (Entresto) Allergies Allergy/AdvReac Type Severity Reaction Status Date / Time No Known Allergies Allergy Verified 05/08/24 05:28 PFS ED 2 PFSH: Medical History New onset of congestive heart failure Osteoarthritis involving multiple joints on both sides of body back & shoulder Chronic pain back & shoulder Hypertension Family History Father No problems noted. Mother No problems noted. Social History Smoking and tobacco/nicotine status: current every day tobacco/nicotine user Alcohol intake: current Alcohol intake frequency: 3 or more drinks per day Alcohol type: beer Substance/Drug Use: former Course 2 Vital Signs: Vital signs: Vital Signs Temperature 97.6 F 05/08/24 09:18 Pulse Rate 80 05/08/24 09:18 Respiratory Rate 32 H 05/08/24 09:18 Blood Pressure 156/97 05/08/24 09:18 Pulse Oximetry 95 05/08/24 09:18 Oxygen Delivery Me thod Nasal Cannula 05/08/24 09:18 Oxygen Flow Rate 5 05/08/24 09:18 Fraction of Inspir ed Oxygen 50 05/08/24 07:13 MDM - SOB/Dyspnea Medical Decision Making Care assumed at change of shift. White count is normal Pro-Mookie is negative patient appears to have exacerbation of COPD. BNP elevated he has improved on the BiPAP with Lasix. Delta Trope is +12.2. Discussed with hospitalist orders written admit. Lab Data 05/08/24 05:24 05/08/24 05:24 Labs/Radiology: Radiology Impressions Chest X-Ray 05/08/24 05:22 IMPRESSION: Findings suggestive of CHF, infection is difficult to exclude. Laboratory Results WBC 10.43 10^3/uL (3.29-11.43) 05/08/24 05:24 RBC 4.90 10^6/uL (3.85-5.65) 05/08/24 05:24 Hgb 15.40 g/dL (11.27-16.99) 05/08/24 05:24 Hct 47.7 % (37-53) 05/08/24 05:24 MCV 97.3 fl (82-101) 05/08/24 05:24 MCH 31.4 pg (27-33) 05/08/24 05:24 MCHC 32.3 g/dL (30-55) 05/08/24 05:24 RDW 14.6 % (12.1-15.1) 05/08/24 05:24 Plt Count 241 10^3/cmm (157-399) 05/08/24 05:24 MPV 9.3 fL (7.4-10.4) 05/08/24 05:24 Neut % (Auto) 66.4 % 05/08/24 05:24 Lymph % (Auto) 27.3 % 05/08/24 05:24 [place] % (Auto) 4.8 % 05/08/24 05:24 Eos % (Auto) 0.3 % 05/08/24 05:24 Baso % (Auto) 0.6 % 05/08/24 05:24 Neut # (Auto) 6.93 10^3/uL (1.8-7.7) 05/08/24 05:24 Lymph # (Auto) 2.9 10^3/uL (0.8-4.8) 05/08/24 05:24 [place] # (Auto) 0.5 10^3/uL (0.2-0.9) 05/08/24 05:24 Eos # (Auto) 0.0 10^3/uL (0.0-0.8) 05/08/24 05:24 Baso # (Auto) 0.1 10^3/uL (0.0-0.1) 05/08/24 05:24 Nucleated RBC % (auto) 0 % 05/08/24 05:24 Nucleated RBCs # 0.0 /100WBC 05/08/24 05:24 PT 13.10 SECONDS (12.1-14.9) 05/08/24 05:24 INR 0.93 (0.8-1.2) 05/08/24 05:24 Specimen Type Arterial 05/08/24 07:00 Sample Site Radial, left 05/08/24 07:00 ABG pH 7.36 (7.35-7.45) 05/08/24 07:00 ABG pCO2 41.7 mmHg (35-45) 05/08/24 07:00 ABG pO2 111.0 mmHg (80.0-100.0) H 05/08/24 07:00 ABG PO2/FiO2 Ratio 222 05/08/24 07:00 ABG HCO3 23.5 mmol/L (22-26) 05/08/24 07:00 ABG O2 Saturation 98.8 05/08/24 07:00 ABG Base Excess -2.0 mmol/L (-2.0-2.0) 05/08/24 07:00 Camron Test Pos 05/08/24 07:00 A-a O2 Gradient 25.6 mmHg (5-10) H 05/08/24 07:00 Hematocrit 45.1 % (42-52) 05/08/24 07:00 Hgb O2 Saturation 94.8 % (95-100) L 05/08/24 07:00 Carboxyhemoglobin 3.9 %THgb (0.4-20.1) 05/08/24 07:00 Methemoglobin 0.1 % (0.4-1.5) L 05/08/24 07:00 Total Hemoglobin 14.7 g/dL (14-18) 05/08/24 07:00 Sodium 146.0 mmol/L (131-143) H 05/08/24 07:00 Potassium 3.6 mmol/L (3.5-5.0) 05/08/24 07:00 Glucose 160.0 mg/dL (70-115) H 05/08/24 07:00 Ionized Calcium 1.1 mmol/L (1.1-1.4) 05/08/24 07:00 O2 Delivery Device Bipap 05/08/24 07:00 FiO2 50.0 % 05/08/24 07:00 Building Performance Consultant ID Monro 05/08/24 07:00 Sodium 143 mmol/L (136-145) 05/08/24 05:24 Potassium 4.3 mmol/L (3.5-5.1) 05/08/24 05:24 Chloride 109 mmol/L (98-107) H 05/08/24 05:24 Carbon Dioxide 21 mmol/L (22-29) L 05/08/24 05:24 Anion Gap 17.3 (5-19) 05/08/24 05:24 BUN 16 mg/dL (6-20) 05/08/24 05:24 Creatinine 1.1 mg/dL (0.7-1.2) 05/08/24 05:24 GFR Calculation 68.5 mL/min (90-130) L 05/08/24 05:24 Glucose 225 mg/dL (65-115) H 05/08/24 05:24 Calculated Osmolality 304 mOsm/kg (285-295) H 05/08/24 05:24 Lactic Acid 2.2 mmol/L (0.5-2.2) 05/08/24 05:24 Calcium 8.6 mg/dL (8.5-10.5) 05/08/24 05:24 Magnesium 2.0 mg/dL (1.7-2.3) 05/08/24 05:24 Total Bilirubin 0.3 mg/dL (0.15-1.2) 05/08/24 05:24 AST 45 U/L (0-40) H 05/08/24 05:24 ALT 24 U/L (0-41) 05/08/24 05:24 Alkaline Phosphatase 113 U/L (40-130) 05/08/24 05:24 Troponin T Baseline 35 ng/L (0-15) H 05/08/24 05:24 Troponin T 120 Minute 47.28 ng/L (0-15) H 05/08/24 07:24 Delta Troponin T 12.28 ABS# (0-10) H* 05/08/24 07:24 NT-Pro-B Natriuret Pep 1497 pg/mL (0-125) H 05/08/24 05:24 Total Protein 7.0 g/dL (6.6-8.7) 05/08/24 05:24 Albumin 4.2 g/dL (3.5-5.2) 05/08/24 05:24 Globulin 2.8 g/dL (1.3-4.6) 05/08/24 05:24 Procalcitonin 0.05 ng/mL (0-0.5) 05/08/24 05:24 Coronavirus (PCR) Negative (Negative) 05/08/24 05:30 Influenza A (PCR) Negative (Negative) 05/08/24 05:30 Influenza Type B (PCR) Negative (Negative) 05/08/24 05:30 RSV (PCR) Negative (Negative) 05/08/24 05:30 Discharge Plan Discharge Patient Disposition: Admitted As Inpatient Admit Provider: Meño Pace Clinical Impression: Systolic CHF, Moderate to severe mitral regurgitation, Cardiomyopathy, Severe pulmonary hypertension, History of CVA (cerebrovascular accident) without residual deficits, Left bundle branch block (LBBB) on electrocardiogram Condition: Stable Sign Out Sign Out Data: Patient Sign Out occurred on 05/08/24 at 06:35. Patient's care was discussed, and care was transferred from Ben Mcgowan DO to Kota Weber DO. Coding Level of Care Code ED Lcac Radar Operator/Navigator for Sangeetha Cruz
[2024-05-08 05:30] LABS: ABG PCO2 45.8 mmHg (35-45); ABG PH Result 7.27 (7.35-7.45); Alveolar-Arterial Oxygen Gradi 30.9 mmHg (5-10); Arterial Blood Gas Hematocrit 47.7 % (42-52); Base Excess ABG -6.3 mmol/L (-2.0-2.0); Blood Gas Allen Test Pos; Blood Gas Sample Site Radial, right; Blood Gas Sample Type Arterial; HCO3 ABG 20.7 mmol/L (22-26); HGB O2 Sat 91.3 % (95-100); Ionized Calcium Level - ABG 1.1 mmol/L (1.1-1.4); Oxygen Device BIPAP; Oxygen Saturation ABG 97.1; PO2 FiO2 Ratio Arterial Blood 183; Potassium Level - ABG 3.9 mmol/L (3.5-5.0); Total Hemoglobin 15.6 g/dL (14-18)
[2024-05-08 05:31] LABS: Basophils # 0.1 10^3/uL (0.0-0.1); Basophils % 0.6 %; Eosinophils % 0.3 %; Hematocrit 47.7 % (37-53); Lymphocytes # 2.9 10^3/uL (0.8-4.8); Lymphocytes % 27.3 %; Mean Corpuscular HGB Conc 32.3 g/dL (30-55); Mean Corpuscular Hemoglobin 31.4 pg (27-33); Mean Corpuscular Volume 97.3 fl (82-101); Mean Platelet Volume 9.3 fL (7.4-10.4); Monocytes # 0.5 10^3/uL (0.2-0.9); Monocytes % 4.8 %; Neutrophils # 6.93 10^3/uL (1.8-7.7); Neutrophils % 66.4 %; Nucleated Red Blood Cells % 0 %; Platelet Count 241 10^3/cmm (157-399); Red Cell Distribution Width 14.6 % (12.1-15.1); White Blood Count 10.43 10^3/uL (3.29-11.43)
[2024-05-08 05:44] LABS: INR 0.93 (0.8-1.2)
[2024-05-08] MEDS: FUROsemide 10 mg/mL SDV 4mL 40 MG IVP ×2 (05:45→16:25)
[2024-05-08 05:50] LABS: Troponin(5th) Baseline 35 ng/L (0-15)
[2024-05-08 05:52] LABS: Lactic Sepsis W/Reflex 2.2 mmol/L (0.5-2.2)
[2024-05-08 06:01] LABS: Alanine Aminotransferase 24 U/L (0-41); Albumin Level 4.2 g/dL (3.5-5.2); Alkaline Phosphatase 113 U/L (40-130); Anion Gap 17.3 (5-19); Aspartate Amino Transferase 45 U/L (0-40); Blood Urea Nitrogen 16 mg/dL (6-20); Calcium 8.6 mg/dL (8.5-10.5); Carbon Dioxide 21 mmol/L (22-29); Chloride 109 mmol/L (98-107); Creatinine Clr Calc Pharmacy 82.9816; Globulin 2.8 g/dL (1.3-4.6); Glomerular Filtration Rate 68.5 mL/min (90-130); Glucose 225 mg/dL (65-115); Osmolality Calculated 304 mOsm/kg (285-295); Potassium 4.3 mmol/L (3.5-5.1); Sodium 143 mmol/L (136-145); Total Bilirubin 0.3 mg/dL (0.15-1.2)
[2024-05-08 06:14] LABS: Covid PCR NEGATIVE (Negative); Influenza A NEGATIVE (Negative); Influenza B NEGATIVE (Negative); Respiratory Syncytial Virus Ce NEGATIVE (Negative)
[2024-05-08 07:12] LABS: ABG PCO2 41.7 mmHg (35-45); ABG PH Result 7.36 (7.35-7.45); Alveolar-Arterial Oxygen Gradi 25.6 mmHg (5-10); Arterial Blood Gas Hematocrit 45.1 % (42-52); Blood Gas Allen Test Pos; Blood Gas Operator Identificat MONRO; Blood Gas Sample Site Radial, left; Blood Gas Sample Type Arterial; Carboxyhemoglobin 3.9 %THgb (0.4-20.1); HCO3 ABG 23.5 mmol/L (22-26); HGB O2 Sat 94.8 % (95-100); Ionized Calcium Level - ABG 1.1 mmol/L (1.1-1.4); Methemoglobin 0.1 % (0.4-1.5); Oxygen Device BIPAP; Oxygen Saturation ABG 98.8; PO2 FiO2 Ratio Arterial Blood 222; Potassium Level - ABG 3.6 mmol/L (3.5-5.0); Total Hemoglobin 14.7 g/dL (14-18)
[2024-05-08 07:14] LABS: NT Pro B Type Natriuretic Pept 1497 pg/mL (0-125); Procalcitonin 0.05 ng/mL (0-0.5)
[2024-05-08 07:16] LABS: Reflex Lactate Order REFLEX LACTIC ORDERD
--- NOTE | 2024-05-08 07:22 | ECG_ITS ---
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 Measurements Intervals [place] Rate: 65 P: 19 OK: 153 QRS: -20 QRSD: 201 T: 108 QT: 540 QTc: 565 Interpretive Statements SINUS RHYTHM LEFT BUNDLE BRANCH BLOCK [120+ ms QRS DURATION, 80+ ms Q/S IN V1/V2, 85+ ms R IN I/aVL/V5/V6] PROLONGED QT INTERVAL CRITICAL TEST RESULT Compared to ECG 05/08/2024 05:20:13 Prolonged QT interval now present Short OK interval no longer present Left-axis deviation no longer present Electronically Signed On 05-08-2024 12:32:37 APPLICATION TECHNICAL DESIGNER by Bjorn Watkins M.D. [email or web address]
[2024-05-08 07:48] LABS: Troponin 5 2HR 47.28 ng/L (0-15)
[2024-05-08 07:57] LABS: Troponin 5 2HR Delta 12.28 ABS# (0-10)
--- NOTE | 2024-05-08 07:57 | PC.PHAR ---
Addendum entered by Brittany Katz 05/08/24 08:25: Verified last fill dates and days supply with [facility] and added them in pharmacy notes section. Original Note: Pt states it has been 2 days since he last took medications. Pt last fill dates are several months old, so I questioned whether he takes them daily and he says yes.
[2024-05-08 09:11] LABS: Lactic Acid level (Lactate) 3.1 mmol/L (0.5-2.2)
--- NOTE | 2024-05-08 09:20 | P.HP_ITS ---
Providers/Chief Complaint 2 Admitting Physician: Meño Pace MD Chief Complaint: RESP. DISTRESS History of Present Illness Jude Lemon is a 59 year old male with nonischemic cardiomyopathy presenting with dizziness, nausea, significant shortness of breath since last night. He reports he has noticed significant lower extremity swelling as well, noted yesterday. He reports he has been compliant with his medication. No chest discomfort. On arrival to the emergency department he was significantly hypoxic, short of breath with severe tachypnea and he received Lasix immediately and was placed on BiPAP for his acute hypoxic and hypercarbic respiratory failure. He denies any vomiting, blood in the stool, black or tarry stools. Review of Systems 2 General: Reports: 10 or more systems reviewed and unremarkable except in HPI and below Card: Reports: swelling of feet/ankles and lightheadedness; Denies: chest pain Resp: Reports: dyspnea GI: Reports: nausea; Denies: abdominal pain, vomiting, hematochezia or melena Medications/Allergies Home Medications Medication Instructions Recorded Confirmed Last Taken Type atorvastatin 40 mg tablet 40 mg PO DAILY #30 tabs 09/03/23 05/08/24 05/06/24 Rx furosemide 40 mg tablet (Lasix) 40 mg PO QAM #90 tabs 09/28/23 05/08/24 05/06/24 Rx aspirin 81 mg tablet,delayed 81 mg PO DAILY #30 tabs 10/10/23 05/08/24 05/06/24 Rx release metoprolol tartrate 25 mg tablet 25 mg PO BID@0900,2100 #60 tabs 10/10/23 05/08/24 05/06/24 Rx potassium chloride 10 mEq 10 meq PO DAILY #30 caps 10/10/23 05/08/24 05/06/24 Rx capsule,extended release spironolactone 25 mg tablet 25 mg PO DAILY heart #30 tabs 10/10/23 05/08/24 05/06/24 Rx albuterol sulfate 90 mcg/actuation 2 inh inhalation Q4H PRN shortness 01/05/24 05/08/24 Unknown Rx aerosol inhaler of breath or wheezing #6.7 grams empagliflozin 10 mg tablet 10 mg PO DAILY 30 days #30 tabs 01/10/24 05/08/24 05/06/24 Rx (Jardiance) sacubitril 24 mg-valsartan 26 mg 1 tab PO BID #60 tabs 01/10/24 05/08/24 05/06/24 Rx tablet (Entresto) lisinopril 10 mg tablet 5 mg PO DAILY 05/08/24 05/08/24 05/06/24 History Allergies Allergy/AdvReac Type Severity Reaction Status Date / Time No Known Allergies Allergy Verified 05/08/24 05:28 PFSH Acute 2 PFSH: Medical History (Updated 05/08/24 @ 10:18 by Meño Pace MD) Cardiomyopathy Systolic CHF LVEF 30% Severe pulmonary hypertension New onset of congestive heart failure Osteoarthritis involving multiple joints on both sides of body back & shoulder Chronic pain back & shoulder Hypertension Family History Father No problems noted. Mother No problems noted. Social History (Updated 05/08/24 @ 10:12 by Meño Pace MD) Smoking and tobacco/nicotine status: current some day tobacco/nicotine user Alcohol intake: current Alcohol intake frequency: 3 or more drinks per day Alcohol type: beer Substance/Drug Use: former Vitals/I&O/Wt Last Vital Signs Temp 97.4 F L 05/08/24 05:19 Pulse 72 05/08/24 08:59 Resp 15 05/08/24 08:59 BP 143/73 05/08/24 08:59 Pulse Ox 96 05/08/24 08:59 O2 Del Method BiPAP 05/08/24 06:15 O2 Flow Rate 15 05/08/24 05:19 FiO2 50 05/08/24 07:13 05/07/24 05/08/24 05/08/24 22:59 06:59 14:59 Intake Total 0 / 0 Balance 0 / 0 Weight last 48 hrs Weight 100.244 kg Physical Exam 2 Narrative: General exam is a white male, now on 5 L of oxygen, with obvious tachypnea and moderate retractions HEENT: Atraumatic with oropharynx clear Neck is supple no lymphadenopathy thyromegaly Cardiovascular regular rate and rhythm without murmur, no S3 or S4 Lungs crackles bilaterally Abdomen is soft nontender positive bowel sounds Extremities 1+ edema bilaterally. No cyanosis or clubbing Skin no rash Neuro no obvious focal deficits Data 05/08/24 05:24 05/08/24 05:24 Other Labs: Angiogram in August 2023 demonstrated nonischemic cardiomyopathy with EF around 30%, severe pulmonary hypertension. Echocardiogram November showed similar findings EKG which I reviewed demonstrates tachycardia, left bundle branch block, rate 110 Chest x-ray which I reviewed demonstrates interstitial edema consistent with heart failure, cardiomegaly, small right effusion INR is normal ABG on presentation demonstrated pH 7.27, pCO2 46, pO2 101 on BiPAP with an FiO2 of 55% Lactic acid 3.1, believe repeat was 2.2 LFTs are normal with the exception of AST 45 Troponin is 35 and repeat 47 BNP 1497 Procalcitonin 0.05 RSV COVID flu all negative Micro: Microbiology 05/08/24 05:41 Blood Culture - Preliminary Blood SPECIMEN COLLECTED 05/08/24 05:30 Blood Culture - Preliminary Blood SPECIMEN COLLECTED A&P Assessment and plan (1) Acute systolic (congestive) heart failure: Patient presents with acute systolic heart failure, and has underlying history of nonischemic cardiomyopathy Obtain limited echo Continue metoprolol, Entresto Hold Aldactone He is already on empagliflozin, will continue if he can get from home Diuresis with Lasix 40 mg IV every 12 hours Wean oxygen as tolerated Close follow-up of electrolytes daily while getting IV Lasix. (2) Acute respiratory failure with hypoxia and hypercapnia: Secondary to heart failure No evidence clinically of pneumonia Monitor for improvement Plan Tobacco dependency. Encourage cessation. Offered nicotine patch. He refuses currently. Other medical problems as outlined in past medical history Full code currently Lovenox for DVT prophylaxis Attestations 2 Medical Necessity Statement*: Will need greater than 2 midnight stay for evaluation and treatment of acute CHF. Coding Level of Care Code Acute Code for [facility] Diagnoses Acute systolic (congestive) heart failure I50.21 Acute respiratory failure with hypoxia and hypercapnia J96.01; J96.02
[2024-05-08] MEDS: atorvastatin 40 mg Tablet PO (10:03)
[2024-05-08] MEDS: sacubitril/valsartan 24-26 mg Tablet 1 EACH PO ×2 (10:04→17:54)
[2024-05-08] MEDS: metoprolol tartrate 25 mg Tablet PO (10:04)
[2024-05-08] MEDS: aspirin 81 mg EC Tablet PO (10:04)
--- NOTE | 2024-05-08 10:19 | USCV_ITS ---
Jude Lemon Age: 59 Gender: M : 1965 Exam Date: 05/08/2024 11:02 Ordering Phys: Meño Pace MD Technologist: SELWYN [place] [facility] [place] CHF BP: 142 / 89 HR: 80 Rhythm: Sinus Technical Quality: Adequate MEASUREMENTS (Male / Female) Normal Values 2D ECHO LV Diastolic Diameter PLAX 7.8 cm 4.2 - 5.9 / 3.9 - 5.3 cm IVS Diastolic Thickness 1.2 cm 0.6 - 1.0 / 0.6 - 0.9 cm IVS Systolic Thickness 1.9 cm LVPW Diastolic Thickness 1.1 cm 0.6 - 1.0 / 0.6 - 0.9 cm LVPW Systolic Thickness 2.1 cm LVOT Diameter 2.0 cm LV Ejection Fraction 2D Teich 39.9 % LV Ejection Fraction MOD 4C 33.5 % LV Ejection Fraction MOD 2C 38.2 % LV Ejection Fraction 2C AL 39.6 % LA Diameter 4.4 cm RA Systolic Volume 4C AL 62.9 ml RA Systolic Volume 4C MOD 60.6 ml LA Sys Volume AL 71.0 cm cubed LA Sys Volume Index AL 32.7 cm cubed/m squared Aorta at Sinotubular Diameter 3.1 cm IVC Diameter 1.7 cm M-MODE LA Ao Ratio MM 1.0 AV Cusp Separation MM 1.8 cm FINDINGS Left Ventricle Diffuse hypokinesis left ventricular ejection fraction of 30 to 35%, visual. Mild concentric ventricular hypertrophy. Moderately dilated LV cavity Right Ventricle Possibly normal RV size with a slightly diminished ejection fraction. Right Atrium Mildly increased right atrial size. Left Atrium Mildly increased left atrial size. Mitral Valve Thickened mitral valve. Aortic Valve No gross abnormalities noted Tricuspid Valve No gross abnormalities noted Pulmonic Valve Pulmonic valve not well visualized. Pericardium No pericardial effusion. Aorta Normal aortic annulus size. IVC Normal inferior vena cava. CONCLUSIONS Diffuse hypokinesis left ventricular ejection fraction of 30 to 35%, visual. Mild concentric ventricular hypertrophy. Moderately dilated LV cavity. Mild biatrial enlargement. Thickened mitral valve. There is no pericardial effusion. There are no intracardiac masses. Compared to the previous study from 11/19/2023, there may not be a significant change Dr Johnie Browning MD FACC (Electronically Signed) Final Date: 08 May 2024 22:44 S
[2024-05-08] MEDS: enoxaparin 40 mg/0.4 mL Syringe SUBCUT (11:16)
--- NOTE | 2024-05-08 11:22 | ECG_ITS ---
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 Measurements Intervals [place] Rate: 73 P: 1 WI: 168 QRS: -9 QRSD: 198 T: 106 QT: 514 QTc: 567 Interpretive Statements SINUS RHYTHM INTRAVENTRICULAR CONDUCTION DELAY [130+ ms QRS DURATION] Compared to ECG 05/08/2024 07:35:05 Intraventricular conduction delay now present Left bundle-branch block no longer present Prolonged QT interval no longer present Electronically Signed On 05-08-2024 12:32:23 CONCRETE BOOM OPERATOR by Bjorn Watkins M.D. [id number]
[2024-05-08 13:22] LABS: Troponin 5 6HR 42.89 ng/L (0-15); Troponin 5 6HR Delta 7.89 ng/L (0-12)
[2024-05-08] MEDS: acetaminophen 325 mg Tablet 650 MG PO (16:24)
--- NOTE | 2024-05-08 17:14 | ECG_ITS ---
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 Measurements Intervals [place] Rate: 51 P: 5 DE: 167 QRS: -26 QRSD: 201 T: 136 QT: 575 QTc: 535 Interpretive Statements SINUS BRADYCARDIA WITH OCCASIONAL VENTRICULAR PREMATURE COMPLEXES BORDERLINE LEFT AXIS DEVIATION [QRS AXIS < -20] INTRAVENTRICULAR CONDUCTION DELAY [130+ ms QRS DURATION] PROLONGED QT INTERVAL CRITICAL TEST RESULT Compared to ECG 05/08/2024 11:29:48 Ventricular premature complex(es) now present Prolonged QT interval now present Sinus rhythm no longer present Electronically Signed On 05-09-2024 21:23:54 CREPE MAKER by Johnie Browning M.D. [id number]
[2024-05-09] VITALS (10 sets, daily range): BP systolic 112–143; BP diastolic 65–94; PULSE 47–67; RESP 16–27; TEMP 36.3–36.7; O2SAT 94–97
[2024-05-09 03:50] LABS: Basophils % 0.1 %; Hematocrit 43.9 % (37-53); Lymphocytes # 0.7 10^3/uL (0.8-4.8); Lymphocytes % 7.7 %; Mean Corpuscular HGB Conc 32.8 g/dL (30-55); Mean Corpuscular Hemoglobin 31.4 pg (27-33); Mean Corpuscular Volume 95.9 fl (82-101); Mean Platelet Volume 9.8 fL (7.4-10.4); Monocytes # 0.8 10^3/uL (0.2-0.9); Monocytes % 8.7 %; Neutrophils % 83.2 %; Nucleated Red Blood Cells % 0 %; Platelet Count 201 10^3/cmm (157-399); Red Blood Count 4.58 10^6/uL (3.85-5.65); Red Cell Distribution Width 14.6 % (12.1-15.1)
[2024-05-09 04:26] LABS: Anion Gap 17.9 (5-19); Blood Urea Nitrogen 20 mg/dL (6-20); Calcium 8.6 mg/dL (8.5-10.5); Carbon Dioxide 22 mmol/L (22-29); Chloride 105 mmol/L (98-107); Creatinine Clr Calc Pharmacy 111.6281; Glomerular Filtration Rate 98.9 mL/min (90-130); Glucose 141 mg/dL (65-115); Osmolality Calculated 297 mOsm/kg (285-295); Potassium 3.9 mmol/L (3.5-5.1); Sodium 141 mmol/L (136-145)
[2024-05-09] MEDS: FUROsemide 10 mg/mL SDV 4mL 40 MG IVP ×2 (06:20→17:20)
--- NOTE | 2024-05-09 08:08 | P.PN_ITS ---
Subjective 2 Subjective: Patient reports he still has low bit of shortness of breath. No other complaints. Medications: Reviewed: Yes Vitals/I&O/Wt Last Vital Signs Temp 97.4 F L 05/09/24 07:37 Pulse 61 05/09/24 07:37 Resp 16 05/09/24 07:37 BP 138/65 05/09/24 07:37 Pulse Ox 96 05/09/24 07:37 O2 Del Method Nasal Cannula 05/09/24 07:37 O2 Flow Rate 5 05/08/24 16:00 FiO2 50 05/08/24 07:13 05/08/24 05/09/24 05/09/24 22:59 06:59 14:59 Intake Total 940 / 1180 160 / 1340 Output Total 1750 / 2300 750 / 3050 Balance -810 / -1120 -590 / -1710 Weight last 48 hrs Weight 95.753 kg Weight 95.85 kg Weight 100.244 kg Physical Exam 2 Narrative: General exam is a white male, n now on 1 L, diuresed over 1.5 L Neck is supple no lymphadenopathy thyromegaly Cardiovascular regular rate and rhythm without murmur, no S3 or S4 Lungs crackles bilaterally Abdomen is soft nontender positive bowel sounds Extremities trace edema bilaterally. No cyanosis or clubbing Data 05/09/24 03:43 05/09/24 03:43 Micro: Microbiology 05/08/24 05:41 Blood Culture - Preliminary Blood NEGATIVE TO DATE 05/08/24 05:30 Blood Culture - Preliminary Blood NEGATIVE TO DATE A&P Assessment and plan (1) Acute systolic (congestive) heart failure: Patient presents with acute systolic heart failure, and has underlying history of nonischemic cardiomyopathy Limited echo demonstrates EF around 35%, unchanged from Profore Continue metoprolol, Entresto Hold Aldactone He is already on empagliflozin, will continue if he can get from home Continue diuresis with Lasix 40 mg IV every 12 hours, renal function is stable Wean oxygen as tolerated Close follow-up of electrolytes daily while getting IV Lasix. Fluid restrict to 1200 cc. (2) Acute respiratory failure with hypoxia and hypercapnia: Secondary to heart failure No evidence clinically of pneumonia Improving Plan Tobacco dependency. Encourage cessation. Offered nicotine patch. He refuses currently. Other medical problems as outlined in past medical history Full code currently Lovenox for DVT prophylaxis Attestations 2 Medical Necessity Statement*: Requires continued hospitalization for IV diuresis secondary to acute congestive heart failure still requiring oxygen. Diagnoses Acute systolic (congestive) heart failure I50.21 Acute respiratory failure with hypoxia and hypercapnia J96.01; J96.02 Time Spent (min) 19
[2024-05-09] MEDS: enoxaparin 40 mg/0.4 mL Syringe SUBCUT (08:27)
[2024-05-09] MEDS: sacubitril/valsartan 24-26 mg Tablet 1 EACH PO ×2 (08:28→17:20)
[2024-05-09] MEDS: atorvastatin 40 mg Tablet PO (08:28)
[2024-05-09] MEDS: aspirin 81 mg EC Tablet PO (08:29)
[2024-05-09] MEDS: metoprolol tartrate 25 mg Tablet PO (08:30)
--- NOTE | 2024-05-10 01:30 | PC.NURSE ---
patient has been very bradycardic, 2100 dose metoprolol held with patient running 40s-50s, patient now asleep and running 30s-40s, does not seem to be symptomatic, notified Dr Braga, no new orders, continue to monitor
[2024-05-10 04:00] VITALS: BP 111/78; PULSE 57; RESP 20; TEMP 36.4; O2SAT 97
[2024-05-10 05:40] LABS: Blood Urea Nitrogen 21 mg/dL (6-20); Calcium 8.3 mg/dL (8.5-10.5); Carbon Dioxide 28 mmol/L (22-29); Chloride 102 mmol/L (98-107); Creatinine Clr Calc Pharmacy 89.2589; Glomerular Filtration Rate 76.5 mL/min (90-130); Glucose 98 mg/dL (65-115); Osmolality Calculated 291 mOsm/kg (285-295); Sodium 139 mmol/L (136-145)
[2024-05-10 05:43] LABS: Anion Gap 12.8 (5-19); Potassium 3.8 mmol/L (3.5-5.1)
[2024-05-10 06:00] VITALS: PULSE 55
[2024-05-10] MEDS: FUROsemide 10 mg/mL SDV 4mL 40 MG IVP (06:05)
[2024-05-10 08:00] VITALS: BP 109/82; PULSE 55; RESP 16; TEMP 36.4; O2SAT 93
[2024-05-10] MEDS: atorvastatin 40 mg Tablet PO (09:44)
[2024-05-10] MEDS: aspirin 81 mg EC Tablet PO (09:44)
[2024-05-10] MEDS: sacubitril/valsartan 24-26 mg Tablet 1 EACH PO (09:44)
[2024-05-10] MEDS: enoxaparin 40 mg/0.4 mL Syringe SUBCUT (09:44)
[2024-05-10 09:45] VITALS: PULSE 55
--- NOTE | 2024-05-10 09:45 | ECG_ITS ---
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 Measurements Intervals [place] Rate: 55 P: 19 VT: 166 QRS: 3 QRSD: 205 T: 170 QT: 558 QTc: 535 Interpretive Statements SINUS BRADYCARDIA INTRAVENTRICULAR CONDUCTION DELAY [130+ ms QRS DURATION] PROLONGED QT INTERVAL CRITICAL TEST RESULT Compared to ECG 05/08/2024 17:20:30 Ventricular premature complex(es) no longer present Electronically Signed On 05-10-2024 21:19:48 PARATRANSIT OPERATOR by Johnie Browning M.D. [id number]
[2024-05-10 10:32] VITALS: PULSE 48; RESP 16; O2SAT 95
--- NOTE | 2024-05-10 11:32 | P.DS_ITS ---
Discharge Providers Date of Admission: 05/08/24 08:29 Date of Discharge: May 10, 2024 Attending Provider at Admission: Meño Pace MD Attending Provider at Discharge: Puneet Neal MD Diagnoses at Discharge Discharge Diagnosis (1) Acute systolic (congestive) heart failure: Status: Acute (2) Acute respiratory failure with hypoxia and hypercapnia: Status: Acute Reason for Visit Reason for Visit: RESP. DISTRESS Hospital Course Hospital Course This is a 59-year-old male with a past medical history of nonischemic cardiomyopathy, who presents [facility] for shortness of breath lower extremity edema Patient was admitted to [facility] for acute systolic CHF exacerbation, required IV diuresis as inpatient, got diuresed over 3 L, overall clinically improved. Will be discharged with Lasix therapy and potassium plac ement therapy with close follow-up with primary care provider and cardiology as outpatient Patient's hospitalization was complicated by sinus bradycardia asymptomatic, beta-ankita has been stopped, heart rates improved with exertion. Patient was seen on 05/10/2024, he is asymptomatic, no lightheaded, dizziness, heart rates do get into the mid 80s at rest, EKG shows no evidence of blocks. Discussed stopping metoprolol. I recommended for him to be monitored as inpatient for another 24 hours, however patient is adamant about going home, as he has his pets to feed at home. Discussed morbidity and mortality associated with bradycardia, he voiced understanding, all question answered, still wants to be discharged home. Will discharge him home, stop metoprolol discharge patient was advised if he has any lightheadedness or dizziness to come back to the hospital. Echocardiogram shows EF of 30 to 35%, follow-up with cardiology as outpatient Physical Exam Const: COMMON NORMALS: no acute distress and patient oriented x3 Resp: COMMON NORMALS: normal respiratory effort, No retractions, No use of accessory muscles and clear to auscultation bilaterally AUSCULTATION: clear to auscultation bilaterally Cardio: COMMON NORMALS: regular rhythm, S1 normal heart sound present and S2 normal heart sound present RATE: bradycardic RHYTHM: regular rhythm HEART SOUNDS: S1 normal heart sound present and S2 normal heart sound present GI: COMMON NORMALS: Normal to inspection, nondistended, normoactive bowel sounds present and non-tender Extremity: COMMON NORMALS: no pedal edema Neuro: COMMON NORMALS: patient oriented x3 Psych: COMMON NORMALS: mental status grossly normal Discharge Data Studies Completed and Pending Completed Studies During Hospitalization Category Date Time Status XR chest 1V portable [id number] Stat Exams 05/08/24 05:22 Completed CV. echo limited 30912 Routine Ultrasound 05/08/24 10:19 Completed Pending at discharge Category Date Time Status Blood Culture Stat Lab 05/08/24 05:41 Results Radiology Impressions Chest X-Ray 05/08/24 05:22 IMPRESSION: Findings suggestive of CHF, infection is difficult to exclude. Laboratory Results WBC 9.50 10^3/uL (3.29-11.43) 05/09/24 03:43 RBC 4.58 10^6/uL (3.85-5.65) 05/09/24 03:43 Hgb 14.40 g/dL (11.27-16.99) 05/09/24 03:43 Hct 43.9 % (37-53) 05/09/24 03:43 MCV 95.9 fl (82-101) 05/09/24 03:43 MCH 31.4 pg (27-33) 05/09/24 03:43 MCHC 32.8 g/dL (30-55) 05/09/24 03:43 RDW 14.6 % (12.1-15.1) 05/09/24 03:43 Plt Count 201 10^3/cmm (157-399) 05/09/24 03:43 MPV 9.8 fL (7.4-10.4) 05/09/24 03:43 Neut % (Auto) 83.2 % 05/09/24 03:43 Lymph % (Auto) 7.7 % 05/09/24 03:43 Donley % (Auto) 8.7 % 05/09/24 03:43 Eos % (Auto) 0.0 % 05/09/24 03:43 Baso % (Auto) 0.1 % 05/09/24 03:43 Neut # (Auto) 7.90 10^3/uL (1.8-7.7) H 05/09/24 03:43 Lymph # (Auto) 0.7 10^3/uL (0.8-4.8) L 05/09/24 03:43 Donley # (Auto) 0.8 10^3/uL (0.2-0.9) 05/09/24 03:43 Eos # (Auto) 0.0 10^3/uL (0.0-0.8) 05/09/24 03:43 Baso # (Auto) 0.0 10^3/uL (0.0-0.1) 05/09/24 03:43 Nucleated RBC % (auto) 0 % 05/09/24 03:43 Nucleated RBCs # 0.0 /100WBC 05/09/24 03:43 PT 13.10 SECONDS (12.1-14.9) 05/08/24 05:24 INR 0.93 (0.8-1.2) 05/08/24 05:24 Specimen Type Arterial 05/08/24 07:00 Sample Site Radial, left 05/08/24 07:00 ABG pH 7.36 (7.35-7.45) 05/08/24 07:00 ABG pCO2 41.7 mmHg (35-45) 05/08/24 07:00 ABG pO2 111.0 mmHg (80.0-100.0) H 05/08/24 07:00 ABG PO2/FiO2 Ratio 222 05/08/24 07:00 ABG HCO3 23.5 mmol/L (22-26) 05/08/24 07:00 ABG O2 Saturation 98.8 05/08/24 07:00 ABG Base Excess -2.0 mmol/L (-2.0-2.0) 05/08/24 07:00 Camron Test Pos 05/08/24 07:00 A-a O2 Gradient 25.6 mmHg (5-10) H 05/08/24 07:00 Hematocrit 45.1 % (42-52) 05/08/24 07:00 Hgb O2 Saturation 94.8 % (95-100) L 05/08/24 07:00 Carboxyhemoglobin 3.9 %THgb (0.4-20.1) 05/08/24 07:00 Methemoglobin 0.1 % (0.4-1.5) L 05/08/24 07:00 Total Hemoglobin 14.7 g/dL (14-18) 05/08/24 07:00 Sodium 146.0 mmol/L (131-143) H 05/08/24 07:00 Potassium 3.6 mmol/L (3.5-5.0) 05/08/24 07:00 Glucose 160.0 mg/dL (70-115) H 05/08/24 07:00 Ionized Calcium 1.1 mmol/L (1.1-1.4) 05/08/24 07:00 O2 Delivery Device Bipap 05/08/24 07:00 FiO2 50.0 % 05/08/24 07:00 Aviation Survival Technician ID Monro 05/08/24 07:00 Sodium 139 mmol/L (136-145) 05/10/24 04:39 Potassium 3.8 mmol/L (3.5-5.1) 05/10/24 04:39 Chloride 102 mmol/L (98-107) 05/10/24 04:39 Carbon Dioxide 28 mmol/L (22-29) 05/10/24 04:39 Anion Gap 12.8 (5-19) 05/10/24 04:39 BUN 21 mg/dL (6-20) H 05/10/24 04:39 Creatinine 1.0 mg/dL (0.7-1.2) 05/10/24 04:39 GFR Calculation 76.5 mL/min (90-130) L 05/10/24 04:39 Glucose 98 mg/dL (65-115) 05/10/24 04:39 Calculated Osmolality 291 mOsm/kg (285-295) 05/10/24 04:39 Lactic Acid 2.2 mmol/L (0.5-2.2) 05/08/24 05:24 Lactic Acid (Sepsis) 3.1 mmol/L (0.5-2.2) H 05/08/24 08:31 Calcium 8.3 mg/dL (8.5-10.5) L 05/10/24 04:39 Magnesium 2.0 mg/dL (1.7-2.3) 05/10/24 04:39 Total Bilirubin 0.3 mg/dL (0.15-1.2) 05/08/24 05:24 AST 45 U/L (0-40) H 05/08/24 05:24 ALT 24 U/L (0-41) 05/08/24 05:24 Alkaline Phosphatase 113 U/L (40-130) 05/08/24 05:24 Troponin T Baseline 35 ng/L (0-15) H 05/08/24 05:24 Troponin T 120 Minute 47.28 ng/L (0-15) H 05/08/24 07:24 Delta Troponin T 12.28 ABS# (0-10) H* 05/08/24 07:24 Troponin T Hi Sens 6Hr 42.89 ng/L (0-15) H 05/08/24 12:12 Troponin T Hi Sens 6Hr Delta 7.89 ng/L (0-12) 05/08/24 12:12 NT-Pro-B Natriuret Pep 1497 pg/mL (0-125) H 05/08/24 05:24 Total Protein 7.0 g/dL (6.6-8.7) 05/08/24 05:24 Albumin 4.2 g/dL (3.5-5.2) 05/08/24 05:24 Globulin 2.8 g/dL (1.3-4.6) 05/08/24 05:24 Procalcitonin 0.05 ng/mL (0-0.5) 05/08/24 05:24 Coronavirus (PCR) Negative (Negative) 05/08/24 05:30 Influenza A (PCR) Negative (Negative) 05/08/24 05:30 Influenza Type B (PCR) Negative (Negative) 05/08/24 05:30 RSV (PCR) Negative (Negative) 05/08/24 05:30 Vitals Last Vital Signs Temp 97.5 F L 05/10/24 08:00 Pulse 48 L 05/10/24 10:32 Resp 16 05/10/24 10:32 BP 109/82 05/10/24 08:00 Pulse Ox 95 05/10/24 10:32 O2 Del Method Nasal Cannula 05/10/24 10:32 O2 Flow Rate 3 05/10/24 10:32 FiO2 50 05/08/24 07:13 Discharge Plan Discharge Patient Disposition: Home Condition: Stable Prescriptions: Continued aspirin 81 mg tablet,delayed release (DR/EC) 81 mg PO DAILY Qty: 30 5RF Entresto 24-26 mg tablet 1 tab PO BID Qty: 60 1RF Jardiance 10 mg tablet 10 mg PO DAILY 30 Days Qty: 30 5RF albuterol sulfate 90 mcg/actuation HFA aerosol inhaler 2 inh INHALATION Q4H PRN (Reason: shortness of breath or wheezing) Qty: 6.7 1RF atorvastatin 40 mg Tablet 40 mg PO DAILY Qty: 30 0RF potassium chloride 10 mEq capsule, extended release 10 meq PO DAILY Qty: 30 5RF Changed Lasix 40 mg tablet 40 mg PO DAILY Qty: 90 3RF Discontinued metoprolol tartrate 25 mg tablet 25 mg PO BID@0900,2100 Qty: 60 5RF spironolactone 25 mg tablet 25 mg PO DAILY Qty: 30 5RF lisinopril 10 mg tablet 5 mg PO DAILY Discharge Orders: Discharge Order (Routine); Ordered 05/10/24 Ordered By: Puneet Neal Referrals: Bjorn Watkins M.D [Physician] - 2 weeks (We have notified your physician's clinic of the need for a follow-up appointment to be scheduled. If you have not heard from them within the next 2 business days, please call them directly. ) Discharge Diet: Cardiac Discharge Activity: Resume usual activity Patient Instructions: Hypertrophic Cardiomyopathy (DC), Chronic Hypertension (DC), Acute Respiratory Failure (GEN), Opioid Safety Activity Restrictions/Additional Instructions: - If you feel lightheaded or dizzy please go to emergency room -Please stop taking metoprolol -Please see your primary care provider next week Discharge Attestations Time Spent in Discharge Care*: greater than 30 min Quality Metrics Clinical Quality Measures [ No reported AMI, CVA or VTE this stay] Coding Level of Care Code 48132 Total time (in minutes) for Discharge: 45 Diagnoses Acute systolic (congestive) heart failure I50.21 Acute respiratory failure with hypoxia and hypercapnia J96.01; J96.02
[2024-05-10 12:10] VITALS: BP 109/82; PULSE 60; RESP 18; O2SAT 94
--- NOTE | 2024-05-10 12:43 | PC.NURSE ---
discharge instructions given and explained.pt verb understanding of instructions.discharged ambulatory to exit.[id number] to drive pt home
== END 2024-05-10 12:45 | disposition home or self-care (01) | DRG 291 ==
LOC: ER 07:01 → CSU 08:30
PROVIDERS: Emergency Medicine; Admitting Provider Internal Medicine; Emergency Provider Family Medicine; Visit Provider Family Medicine
DX: I11.0 Hypertensive heart disease with heart failure (principal); I50.23 Acute on chronic systolic (congestive) heart failure; J96.22 Acute and chronic respiratory failure with hypercapnia; J96.21 Acute and chronic respiratory failure with hypoxia; I42.8 Other cardiomyopathies; R00.1 Bradycardia, unspecified; F17.200 Nicotine dependence, unspecified, uncomplicated; Z79.82 Long term (current) use of aspirin
CPT/HCPCS: 36415; 36600; 71045; 80048; 80051; 80053; 82330; 82805; 83605; 83735; 83880; 84145; 84484; 85025; 85610; 87040; 87637; 93005; 93010; 93308; 94660; 96372; 96374; 96376; 99233; 99291; J1650; J1940

== ENCOUNTER 2024-11-12 23:04 | Emergency (ER) | payer MEDICAID, SELFPAY ==
[2024-11-12 23:11] VITALS: BP 108/71; PULSE 85; RESP 20; TEMP 36.4; O2SAT 94; BMI 28.8
--- NOTE | 2024-11-12 23:22 | ECG_ITS ---
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 Measurements Intervals [place] Rate: 76 P: 20 ID: [id number] QRS: -50 QRSD: 198 T: 115 QT: 490 QTc: 552 Interpretive Statements SINUS RHYTHM LEFT AXIS DEVIATION [QRS AXIS < -30] LEFT BUNDLE BRANCH BLOCK [120+ ms QRS DURATION, 80+ ms Q/S IN V1/V2, 85+ ms R IN I/aVL/V5/V6] Compared to ECG 05/10/2024 10:20:35 Left-axis deviation now present Left bundle-branch block now present Sinus bradycardia no longer present Intraventricular conduction delay no longer present Prolonged QT interval no longer present Electronically Signed On 11-14-2024 15:27:06 CDT by Johnie Browning M.D. [email or web address] [id number]
[2024-11-12 23:42] LABS: Troponin(5th) Baseline 45 ng/L (0-15)
[2024-11-12 23:43] LABS: Hematocrit 45.3 % (37-53); Hemoglobin 15.20 g/dL (11.27-16.99); Mean Corpuscular HGB Conc 33.6 g/dL (30-55); Mean Corpuscular Hemoglobin 33.4 pg (27-33); Mean Corpuscular Volume 99.6 fl (82-101); Nucleated Red Blood Cells % 0 %; Platelet Count 253 10^3/cmm (157-399); Red Blood Count 4.55 10^6/uL (3.85-5.65); White Blood Count 5.72 10^3/uL (3.29-11.43)
[2024-11-12 23:44] LABS: Alanine Aminotransferase 9 U/L (0-41); Albumin Level 3.9 g/dL (3.5-5.2); Alkaline Phosphatase 83 U/L (40-130); Anion Gap 21.4 (5-19); Aspartate Amino Transferase 17 U/L (0-40); Blood Urea Nitrogen 8 mg/dL (6-20); Calcium 9.0 mg/dL (8.5-10.5); Carbon Dioxide 19 mmol/L (22-29); Chloride 105 mmol/L (98-107); Creatinine Clr Calc Pharmacy 84.9524; Globulin 2.6 g/dL (1.3-4.6); Glucose 105 mg/dL (65-115); Lipase 54 U/L (13-60); Osmolality Calculated 291 mOsm/kg (285-295); Potassium 4.4 mmol/L (3.5-5.1); Sodium 141 mmol/L (136-145); Total Protein 6.5 g/dL (6.6-8.7)
--- NOTE | 2024-11-13 00:02 | W.ED.CHESTPA ---
HPI - Chest Pain General: Chief Complaint: Chest Pain Stated Complaint: CP Time Seen by Provider: 11/12/24 23:22 History of Present Illness: 59-year-old male presents via EMS. Patient presents with a anxiety reaction along with the fact that he had a self diagnosed heart attack a week ago. He reports at that time he got flushed had episodes of nausea vomiting diarrhea and has had diarrhea every since then. He does have an appointment with cardiology tomorrow. Patient called EMS due to shortness of breath and chest pain. He received Ativan, aspirin, Zofran enroute. Associated symptoms: Reports abdominal pain, diaphoresis, nausea and vomiting; Deny palpitations Related Data Previous Rx's ?Medication ?Instructions ?Recorded atorvastatin 40 mg tablet 40 mg PO DAILY #30 tabs 09/03/23 aspirin 81 mg tablet,delayed 81 mg PO DAILY #30 tabs 10/10/23 release albuterol sulfate 90 mcg/actuation 2 inh inhalation Q4H PRN shortness 01/05/24 aerosol inhaler of breath or wheezing #6.7 grams empagliflozin 10 mg tablet 10 mg PO DAILY 30 days #30 tabs 01/10/24 (Jardiance) sacubitril 24 mg-valsartan 26 mg 1 tab PO BID #60 tabs 01/10/24 tablet (Entresto) furosemide 40 mg tablet (Lasix) 40 mg PO DAILY #90 tabs 05/10/24 potassium chloride 10 mEq 10 meq PO DAILY #30 caps 05/10/24 capsule,extended release ondansetron HCl 4 mg tablet 4 mg PO Q8H PRN nausea and 11/13/24 vomiting 4 days #20 tabs Allergies Allergy/AdvReac Type Severity Reaction Status Date / Time No Known Allergies Allergy Verified 05/08/24 05:28 Review of Systems Const: Reports: chills, malaise and diaphoresis Card: Denies: palpitations or irregular heart rhythm Resp: Denies: productive cough or wheezing GI: Reports: abdominal pain, nausea, vomiting and diarrhea PFS ED PFSH: Medical History Cardiomyopathy Systolic CHF LVEF 30% Severe pulmonary hypertension New onset of congestive heart failure Osteoarthritis involving multiple joints on both sides of body back & shoulder Chronic pain back & shoulder Hypertension Family History Father No problems noted. Mother No problems noted. Social History Smoking and tobacco/nicotine status: current some day tobacco/nicotine user Alcohol intake: current Alcohol intake frequency: 3 or more drinks per day Alcohol type: beer Substance/Drug Use: former Physical Exam Const: COMMON NORMALS: patient oriented x3 GENERAL APPEARANCE: not well kempt and not in distress Resp: COMMON NORMALS: normal respiratory effort, No use of accessory muscles and clear to auscultation bilaterally AUSCULTATION: clear to auscultation bilaterally Cardio: COMMON NORMALS: regular rate and regular rhythm RATE: regular rate RHYTHM: regular rhythm GI: COMMON NORMALS: Soft to palpation PALPATION: Yes Soft to palpation Neuro: COMMON NORMALS: patient oriented x3 and no focal motor deficits Psych: COMMON NORMALS: normal affect APPEARANCE: No well kempt Course Vital Signs: Vital signs: Vital Signs Temperature 97.5 F L 11/12/24 23:11 Pulse Rate 85 11/12/24 23:11 Respiratory Rate 20 H 11/12/24 23:11 Blood Pressure 108/71 11/12/24 23:11 Pulse Oximetry 94 11/12/24 23:11 Oxygen Delivery Me thod Room Air 11/12/24 23:11 MDM - Chest Pain Medical Decision Making Patient is diagnostic studies were ordered and reviewed and compared to previous studies. Patient is labs appear near his baseline with troponin that is similar to his previous baseline troponins. Patient is EKG was ordered reviewed shows ventricular rate 76 with a [place] 169 with sinus rhythm. Patient has a left bundle branch block/conduction delay that is some monitor to multiple prior EKGs that I reviewed the show below is left bundle branch is an other blocks. Patient with no acute findings noted. Patient's vital signs were stable throughout the stay. His symptoms are much more consistent with a viral gastroenteritis and any cardiac cause. Patient does have an appointment with Dr. Browning tomorrow. I discussed with him that he will be discharged and that he can follow-up with Dr. Browning tomorrow at his appointment that he already has. He is stable upon discharge. Lab Data 11/12/24 23:33 11/12/24 22:34 Laboratory Results WBC 5.72 10^3/uL (3.29-11.43) 11/12/24 23:33 RBC 4.55 10^6/uL (3.85-5.65) 11/12/24 23:33 Hgb 15.20 g/dL (11.27-16.99) 11/12/24 23:33 Hct 45.3 % (37-53) 11/12/24 23:33 MCV 99.6 fl (82-101) 11/12/24 23:33 MCH 33.4 pg (27-33) H 11/12/24 23: MCHC 33.6 g/dL (30-55) 11/12/24 23: RDW 14.1 % (12.1-15.1) 11/12/24 23: Plt Count 253 10^3/cmm (157-399) 11/12/24 23: MPV 9.7 fL (7.4-10.4) 11/12/24 23:33 Neut % (Auto) 64.1 % 11/12/24 23:33 Lymph % (Auto) 23.4 % 11/12/24 23:33 [place] % (Auto) 11.4 % 11/12/24 23:33 Eos % (Auto) 0.3 % 11/12/24 23:33 Baso % (Auto) 0.5 % 11/12/24 23: Neut # (Auto) 3.66 10^3/uL (1.8-7.7) 11/12/24 23:33 Lymph # (Auto) 1.3 10^3/uL (0.8-4.8) 11/12/24 23:33 [place] # (Auto) 0.7 10^3/uL (0.2-0.9) 11/12/24 23:33 Eos # (Auto) 0.0 10^3/uL (0.0-0.8) 11/12/24 23: Baso # (Auto) 0.0 10^3/uL (0.0-0.1) 11/12/24 23:33 Nucleated RBC % (auto) 0 % 11/12/24 23: Nucleated RBCs # 0.0 /100WBC 11/12/24 23:33 Sodium 141 mmol/L (136-145) 11/12/24 22:34 Potassium 4.4 mmol/L (3.5-5.1) 11/12/24 22:34 Chloride 105 mmol/L (98-107) 11/12/24 22:34 Carbon Dioxide 19 mmol/L (22-29) L 11/12/24 22:34 Anion Gap 21.4 (5-19) H 11/12/24 22:34 BUN 8 mg/dL (6-20) 11/12/24 22:34 Creatinine 1.0 mg/dL (0.7-1.2) 11/12/24 22:34 GFR Calculation 76.5 mL/min (90-130) L 11/12/24 22:34 Glucose 105 mg/dL (65-115) 11/12/24 22:34 Calculated Osmolality 291 mOsm/kg (285-295) 11/12/24 22:34 Calcium 9.0 mg/dL (8.5-10.5) 11/12/24 22:34 Total Bilirubin 0.3 mg/dL (0.15-1.2) 11/12/24 22:34 AST 17 U/L (0-40) 11/12/24 22:34 ALT 9 U/L (0-41) 11/12/24 22:34 Alkaline Phosphatase 83 U/L (40-130) 11/12/24 22:34 Troponin T Baseline 45 ng/L (0-15) H 11/12/24 22:34 Total Protein 6.5 g/dL (6.6-8.7) L 11/12/24 22:34 Albumin 3.9 g/dL (3.5-5.2) 11/12/24 22:34 Globulin 2.6 g/dL (1.3-4.6) 11/12/24 22:34 Lipase 54 U/L (13-60) 11/12/24 22:34 No radiology studies performed this visit Discharge Plan Discharge Patient Disposition: Home Clinical Impression: Gastroenteritis and colitis, viral, Left bundle branch block (LBBB) on electrocardiogram Condition: Stable Prescriptions: New ondansetron HCl 4 mg tablet 4 mg PO Q8H PRN (Reason: nausea and vomiting) 4 Days Qty: 20 0RF No Action aspirin 81 mg tablet,delayed release (DR/EC) 81 mg PO DAILY Qty: 30 5RF Entresto 24-26 mg tablet 1 tab PO BID Qty: 60 1RF Jardiance 10 mg tablet 10 mg PO DAILY 30 Days Qty: 30 5RF albuterol sulfate 90 mcg/actuation HFA aerosol inhaler 2 inh INHALATION Q4H PRN (Reason: shortness of breath or wheezing) Qty: 6.7 1RF atorvastatin 40 mg Tablet 40 mg PO DAILY Qty: 30 0RF furosemide [Lasix] 40 mg tablet 40 mg PO DAILY Qty: 90 3RF potassium chloride 10 mEq capsule, extended release 10 meq PO DAILY Qty: 30 5RF Discharge Orders: Discharge ED (Routine); Ordered 11/13/24 Ordered By: John Krishnamurthy Discharge Diet: Advance as tolerated Discharge Activity: Increase activity as tolerated Patient Instructions: Gastroenteritis (ED), Opioid Safety, Pain Management, Patient Portal & Heather Instructions Activity Restrictions/Additional Instructions: Please keep your appointment with Dr. Browning tomorrow for further evaluation so we can review your labs EKG and determine if there is any further testing he would feel is indicated. You have been prescribed Zofran to help with the nausea. Please continue to take your medications as prescribed. Print Language: Cape Verdean Coding Level of Care Code ED Trauma Registrar for Sangeetha Cruz
[2024-11-13 00:14] LABS: Glucose Urine UA 3+ (Normal); Nitrate Urine Negative (Negative); Specific Gravity, Urine 1.008 (1.005-1.030)
[2024-11-13 00:25] LABS: Add Urine Microscopic? YES
[2024-11-13 00:43] LABS: Troponin 5 2HR 39.46 ng/L (0-15)
[2024-11-13 00:57] LABS: Troponin 5 2HR Delta -5.54 ABS# (0-10)
[2024-11-13 01:01] VITALS: BP 156/78; PULSE 65; RESP 16; O2SAT 93
== END 2024-11-13 01:08 | disposition home or self-care (01) ==
PROVIDERS: Emergency Provider Student in an Organized Health Care Education/Training Program
DX: A08.4 Viral intestinal infection, unspecified (principal); I44.7 Left bundle-branch block, unspecified; I11.0 Hypertensive heart disease with heart failure; I50.22 Chronic systolic (congestive) heart failure; Z79.899 Other long term (current) drug therapy; Z79.82 Long term (current) use of aspirin; Z79.84 Long term (current) use of oral hypoglycemic drugs
CPT/HCPCS: 36415; 80053; 81001; 83690; 84484; 85025; 93005; 96360; 99284; J7030

== ENCOUNTER 2025-01-22 19:37 | Emergency (ER) | payer MEDICAID, SELFPAY ==
--- NOTE | 2025-01-22 19:40 | XRR_ITS ---
PROCEDURE INFORMATION: Exam: XR Chest Exam date and time: 01/22/2025 7:44 PM Age: 59 years old Clinical indication: Injury or trauma; Fall; Blunt trauma (contusions or hematomas); Additional info: Left ribs TECHNIQUE: Imaging protocol: Radiologic exam of the chest. Views: 1 view. COMPARISON: CR XR chest 1V portable [id number] 05/08/2024 5:31 AM FINDINGS: Lungs: Unremarkable. No consolidation. Pleural spaces: Unremarkable. No pleural effusion. No pneumothorax. Heart/Mediastinum: Unremarkable. No cardiomegaly. Bones/joints: Unremarkable. XR/XR chest 1V portable [id number] IMPRESSION: No acute findings.
[2025-01-22 19:49] VITALS: BP 107/69; PULSE 88; TEMP 36.7; O2SAT 94
[2025-01-22 20:31] VITALS: BP 123/82; O2SAT 96
--- NOTE | 2025-01-22 20:54 | CTR_ITS ---
PROCEDURE INFORMATION: Exam: CT Chest With Contrast; Diagnostic Exam date and time: 01/22/2025 9:12 PM Age: 59 years old Clinical indication: Injury or trauma; Fall; Blunt trauma (contusions or hematomas); Additional info: Short of breath, trauma/fall this am, left lateral rib pain TECHNIQUE: Imaging protocol: Diagnostic computed tomography of the chest with contrast. Radiation optimization: All CT scans at this facility use at least one of these dose optimization techniques: automated exposure control; mA and/or kV adjustment per patient size (includes targeted exams where dose is matched to clinical indication); or iterative reconstruction. Contrast material: OMNIPAQUE 350; Contrast volume: 100 ml; Contrast route: INTRAVENOUS (IV); COMPARISON: CT chest wo con [id number] 09/02/2023 4:23 PM RADIATION DOSE METRICS: Total DLP (mGy-cm): 497.31 FINDINGS: Lungs: See Bones/joints finding. Pleural spaces: Unremarkable. No pneumothorax. No pleural effusion. Heart: Unremarkable. No cardiomegaly. No pericardial effusion. Lymph nodes: Unremarkable. No enlarged lymph nodes. Vasculature: Aortic and coronary atherosclerosis. 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 Intraperitoneal space: Visualized upper abdomen grossly unremarkable. Bones/joints: Moderate to severe degenerative changes of the thoracic vertebrae with multilevel endplate spurring. Minimally displaced fracture of left posterior ribs 12, 11, 10. No significant adjacent pulmonary contusion. Soft tissues: Unremarkable. CT/CT chest w con* [id number] IMPRESSION: Minimally displaced fractures of left posterior ribs 12, 11, 10. No significant adjacent pulmonary contusion.
--- NOTE | 2025-01-22 20:56 | W.ED.FALL ---
HPI - Fall General: Chief Complaint: Urogenital-Male Stated Complaint: Fall Time Seen by Provider: 01/22/25 20:26 History of Present Illness: Patient is a 59-year-old gentleman with history of HFrEF, EF 35%, nonischemic, moderate to severe mitral regurgitation, presents to the emergency room after he was dizzy, had a fall, and left chest contusion. Patient stated I had a heart attack yesterday again noting that he had chest discomfort. Denied any increasing shortness of breath. Denied any lower extremity edema. Denied any abdominal swelling. States he did not go into the emergency room or primary care or cardiology for this heart attack that he thought he had yesterday. This is documented only by himself. Today, awoke, had lightheadedness, dizziness, and a fall with left lateral chest contusion. Associated symptoms-after fall: Reports abdominal pain and chest pain; Denies headache(s) or neck pain Related Data Previous Rx's ?Medication ?Instructions ?Recorded atorvastatin 40 mg tablet 40 mg PO DAILY #30 tabs 09/03/23 aspirin 81 mg tablet,delayed 81 mg PO DAILY #30 tabs 10/10/23 release albuterol sulfate 90 mcg/actuation 2 inh inhalation Q4H PRN shortness 01/05/24 aerosol inhaler of breath or wheezing #6.7 grams empagliflozin 10 mg tablet 10 mg PO DAILY 30 days #30 tabs 01/10/24 (Jardiance) sacubitril 24 mg-valsartan 26 mg 1 tab PO BID #60 tabs 01/10/24 tablet (Entresto) furosemide 40 mg tablet (Lasix) 40 mg PO DAILY #90 tabs 05/10/24 potassium chloride 10 mEq 10 meq PO DAILY #30 caps 05/10/24 capsule,extended release Allergies Allergy/AdvReac Type Severity Reaction Status Date / Time No Known Allergies Allergy Verified 01/22/25 19:56 Review of Systems Const: Reports: chills, malaise and diaphoresis Eyes: Denies: change in vision or blurry vision Card: Reports: chest pain; Denies: palpitations or irregular heart rhythm Resp: Denies: productive cough or wheezing GI: Reports: abdominal pain, nausea, vomiting and diarrhea : Denies: flank pain or difficulty urinating Musc: Denies: neck pain or back pain Skin/Breast: Denies: rash or pruritus Neuro: Denies: headache(s) or numbness in extremities [facility] ED PFSH: Medical History (Updated 01/22/25 @ 22:06 by ALEX Ching) Cardiomyopathy Systolic CHF LVEF 30% Severe pulmonary hypertension New onset of congestive heart failure Osteoarthritis involving multiple joints on both sides of body back & shoulder Chronic pain back & shoulder Hypertension Family History Father No problems noted. Mother No problems noted. Social History Smoking and tobacco/nicotine status: current some day tobacco/nicotine user Alcohol intake: current Alcohol intake frequency: 3 or more drinks per day Alcohol type: beer Substance/Drug Use: former Physical Exam Const: COMMON NORMALS: patient oriented x3 GENERAL APPEARANCE: not well kempt and not in distress HENMT: COMMON NORMALS: normocephalic and atraumatic HEAD & SCALP: normocephalic and atraumatic Lymph: LYMPHATIC: no lymphadenopathy noted Chest: CHEST: Yes abnormal inspection of the chest (chest wall tenderson) Resp: COMMON NORMALS: normal respiratory effort, No use of accessory muscles and clear to auscultation bilaterally AUSCULTATION: clear to auscultation bilaterally Cardio: COMMON NORMALS: regular rate and regular rhythm RATE: regular rate RHYTHM: regular rhythm GI: COMMON NORMALS: Soft to palpation PALPATION: Yes Soft to palpation : COMMON NORMALS: Yes no CVA tenderness BLADDER/KIDNEY EXAM: Yes no CVA tenderness Back/Pelvis: COMMON NORMALS: no CVA tenderness Extremity: COMMON NORMALS: normal to inspection, full ROM and capillary refill normal Neuro: COMMON NORMALS: patient oriented x3 and no focal motor deficits Psych: COMMON NORMALS: normal affect APPEARANCE: No well kempt Course Reevaluation(s): Reevaluation #1: Patient is without change. He does not appear to be in pain, not verbal rating is a 0. After discussing discharge, patient stated he did not have a ride until 10 AM, started hyperventilating, and stated he needed to be admitted to the intensive care unit. Vital Signs: Vital signs: Vital Signs Temperature 98 F 01/22/25 22:11 Pulse Rate 123 H 01/22/25 22:11 Respiratory Rate 20 H 01/22/25 22:11 Blood Pressure 177/146 01/22/25 22:11 Pulse Oximetry 95 01/22/25 22:11 Oxygen Delivery Me thod Room Air 01/22/25 21:32 MDM - Fall Medical Decision Making Patient is a well-appearing, nontoxic gentleman that presents to the exam room with contusion to his left chest. Given the trauma, CT of the chest with contrast was obtained. Patient stated he had a heart attack yesterday, and serial troponins were obtained. Both of these were without findings except for lateral 10, 11, 12 rib fractures in 1 location. I suspect this is secondary to his contusion and fall this morning. Anti-inflammatories are typically recommended. Discussed this with patient to take ibuprofen and Tylenol. Will give [place] x 1 here only. Suspect the additional concerns were secondary to malingering/secondary gain. Patient did not appear to have any concern until he was being discharged. He has a history of noncompliance. Medical Records I reviewed the patient's medical records. Lab Data I reviewed the patient's lab results. 01/22/25 18:57 01/22/25 18:57 Radiology Impressions Chest X-Ray 01/22/25 19:40 IMPRESSION: No acute findings. Chest CT 01/22/25 20:54 IMPRESSION: Minimally displaced fractures of left posterior ribs 12, 11, 10. No significant adjacent pulmonary contusion. Laboratory Results WBC 7.15 10^3/uL (3.29-11.43) 01/22/25 18:57 RBC 4.41 10^6/uL (3.85-5.65) 01/22/25 18:57 Hgb 13.40 g/dL (11.27-16.99) 01/22/25 18:57 Hct 40.7 % (37-53) 01/22/25 18:57 MCV 92.3 fl (82-101) 01/22/25 18:57 MCH 30.4 pg (27-33) 01/22/25 18:57 MCHC 32.9 g/dL (30-55) 01/22/25 18:57 RDW 14.4 % (12.1-15.1) 01/22/25 18:57 Plt Count 282 10^3/cmm (157-399) 01/22/25 18:57 MPV 10.3 fL (7.4-10.4) 01/22/25 18:57 Neut % (Auto) 65.6 % 01/22/25 18:57 Lymph % (Auto) 23.2 % 01/22/25 18:57 [place] % (Auto) 9.7 % 01/22/25 18:57 Eos % (Auto) 0.4 % 01/22/25 18:57 Baso % (Auto) 0.7 % 01/22/25 18:57 Neut # (Auto) 4.69 10^3/uL (1.8-7.7) 01/22/25 18:57 Lymph # (Auto) 1.7 10^3/uL (0.8-4.8) 01/22/25 18:57 [place] # (Auto) 0.7 10^3/uL (0.2-0.9) 01/22/25 18:57 Eos # (Auto) 0.0 10^3/uL (0.0-0.8) 01/22/25 18:57 Baso # (Auto) 0.1 10^3/uL (0.0-0.1) 01/22/25 18:57 Nucleated RBC % (auto) 0 % 01/22/25 18:57 Nucleated RBCs # 0.0 /100WBC 01/22/25 18:57 Sodium 136 mmol/L (136-145) 01/22/25 18:57 Potassium 4.7 mmol/L (3.5-5.1) 01/22/25 18:57 Chloride 100 mmol/L (98-107) 01/22/25 18:57 Carbon Dioxide 18 mmol/L (22-29) L 01/22/25 18:57 Anion Gap 22.7 (5-19) H 01/22/25 18:57 BUN 11 mg/dL (6-20) 01/22/25 18:57 Creatinine 0.9 mg/dL (0.7-1.2) 01/22/25 18:57 GFR Calculation 86.4 mL/min (90-130) L 01/22/25 18:57 Glucose 106 mg/dL (65-115) 01/22/25 18:57 Calculated Osmolality 282 mOsm/kg (285-295) L 01/22/25 18:57 Calcium 8.8 mg/dL (8.5-10.5) 01/22/25 18:57 Total Bilirubin 0.3 mg/dL (0.15-1.2) 01/22/25 18:57 AST 17 U/L (0-40) 01/22/25 18:57 ALT 10 U/L (0-41) 01/22/25 18:57 Alkaline Phosphatase 72 U/L (40-130) 01/22/25 18:57 Troponin T Baseline 41 ng/L (0-15) H 01/22/25 18:57 Troponin T 120 Minute 47.41 ng/L (0-15) H 01/22/25 21:23 Delta Troponin T 6.41 ABS# (0-10) 01/22/25 21:23 NT-Pro-B Natriuret Pep 2254 pg/mL (0-125) H 01/22/25 18:57 Total Protein 6.6 g/dL (6.6-8.7) 01/22/25 18:57 Albumin 3.9 g/dL (3.5-5.2) 01/22/25 18:57 Globulin 2.7 g/dL (1.3-4.6) 01/22/25 18:57 Procalcitonin 0.40 ng/mL (0-0.5) 01/22/25 18:57 TSH 2.92 uIU/mL (0.27-4.20) 01/22/25 18:57 All radiology interpretation(s) finalized by discharge Discharge Plan Discharge Patient Disposition: Home Clinical Impression: Closed rib fracture Qualifiers: Encounter type: initial encounter Rib fracture type: multiple ribs Laterality: left Qualified Code(s): S22.42XA - Multiple fractures of ribs, left side, initial encounter for closed fracture Condition: Stable Prescriptions: No Action aspirin 81 mg tablet,delayed release (DR/EC) 81 mg PO DAILY Qty: 30 5RF Entresto 24-26 mg tablet 1 tab PO BID Qty: 60 1RF Jardiance 10 mg tablet 10 mg PO DAILY 30 Days Qty: 30 5RF albuterol sulfate 90 mcg/actuation HFA aerosol inhaler 2 inh INHALATION Q4H PRN (Reason: shortness of breath or wheezing) Qty: 6.7 1RF atorvastatin 40 mg Tablet 40 mg PO DAILY Qty: 30 0RF furosemide [Lasix] 40 mg tablet 40 mg PO DAILY Qty: 90 3RF potassium chloride 10 mEq capsule, extended release 10 meq PO DAILY Qty: 30 5RF Discharge Orders: Discharge ED (Routine); Ordered 01/22/25 Ordered By: Melissa Hendrickson Referrals: Josette Sy FNP [Primary Care Provider, Cardiology] Patient Instructions: Rib Fracture (ED), Patient Portal & Heather Instructions Activity Restrictions/Additional Instructions: - Splint your ribs. You can utilize Fam wrap, or pillow to this area. You will need to do deep breathing exercises, and coughing to make sure your lung stays expanded. -Tylenol and especially ibuprofen helps with the inflammatory changes and pain. You were given a one-time dosage of [place] here only. No additional analgesic is recommended from an opioid standpoint -Return to ED if you have increasing shortness of breath. -You have been ruled out from a cardiac acute standpoint. You did not have a heart attack and do not appear that you have in the past. However, you do need to follow-up with cardiology, and keep your appointment. Print Language: Citizen [place] Coding Level of Care Code ED Gravel Screener for Sangeetha Cruz
--- NOTE | 2025-01-22 20:57 | ECG_ITS ---
[facility] Test Date: 2025-01-22 Pat Name: Jude Lemon Department: Room: Gender: Male Hospital Administrator: : 1965 Requested By: Melissa Hendrickson Order Number: [id number] Pauline MD: Bjorn Watkins M.D. Measurements Intervals [place] Rate: 74 P: 11 MD: 169 QRS: 10 QRSD: 196 T: 135 QT: 511 QTc: 570 Interpretive Statements SINUS RHYTHM INTRAVENTRICULAR CONDUCTION DELAY [130+ ms QRS DURATION] Compared to ECG 11/12/2024 23:07:44 Intraventricular conduction delay now present Left-axis deviation no longer present Left bundle-branch block no longer present Electronically Signed On 01-24-2025 13:09:20 CDT by Bjorn Watkins M.D. [email or web address]
[2025-01-22 21:08] LABS: Hematocrit 40.7 % (37-53); Hemoglobin 13.40 g/dL (11.27-16.99); Mean Corpuscular HGB Conc 32.9 g/dL (30-55); Mean Corpuscular Hemoglobin 30.4 pg (27-33); Mean Corpuscular Volume 92.3 fl (82-101); Nucleated Red Blood Cells % 0 %; Platelet Count 282 10^3/cmm (157-399); Red Blood Count 4.41 10^6/uL (3.85-5.65); White Blood Count 7.15 10^3/uL (3.29-11.43)
[2025-01-22 21:20] LABS: Troponin(5th) Baseline 41 ng/L (0-15)
[2025-01-22 21:28] LABS: NT Pro B Type Natriuretic Pept 2254 pg/mL (0-125); Procalcitonin 0.40 ng/mL (0-0.5); Thyroid Stimulating Hormone 2.92 uIU/mL (0.27-4.20)
[2025-01-22 21:32] VITALS: BP 128/86; O2SAT 91
[2025-01-22 21:40] LABS: Alanine Aminotransferase 10 U/L (0-41); Albumin Level 3.9 g/dL (3.5-5.2); Alkaline Phosphatase 72 U/L (40-130); Aspartate Amino Transferase 17 U/L (0-40); Blood Urea Nitrogen 11 mg/dL (6-20); Calcium 8.8 mg/dL (8.5-10.5); Carbon Dioxide 18 mmol/L (22-29); Chloride 100 mmol/L (98-107); Creatinine Clr Calc Pharmacy 83.0515; Globulin 2.7 g/dL (1.3-4.6); Glucose 106 mg/dL (65-115); Osmolality Calculated 282 mOsm/kg (285-295); Sodium 136 mmol/L (136-145); Total Protein 6.6 g/dL (6.6-8.7)
[2025-01-22 21:41] LABS: Anion Gap 22.7 (5-19); Potassium 4.7 mmol/L (3.5-5.1)
[2025-01-22 21:50] LABS: Troponin 5 2HR 47.41 ng/L (0-15); Troponin 5 2HR Delta 6.41 ABS# (0-10)
[2025-01-22 22:11] VITALS: BP 177/146; PULSE 123; RESP 20; TEMP 36.6; O2SAT 95
[2025-01-22] MEDS: HYDROcodone-acetaminophen 10-325 mg Tablet 1 TAB PO (22:18)
== END 2025-01-22 22:22 | disposition home or self-care (01) ==
PROVIDERS: Emergency Provider Physician Assistant; PCP Nurse Practitioner Family
DX: S22.42XA Multiple fractures of ribs, left side, initial encounter for closed fracture (principal); Z79.82 Long term (current) use of aspirin; Z72.0 Tobacco use; I11.0 Hypertensive heart disease with heart failure; I50.20 Unspecified systolic (congestive) heart failure; W19.XXXA Unspecified fall, initial encounter
CPT/HCPCS: 36415; 71045; 71260; 80053; 83880; 84145; 84443; 84484; 85025; 93005; 99285; J9999

== ENCOUNTER 2025-02-04 19:03 | Emergency (ER) | payer MEDICAID, SELFPAY ==
[2025-02-04 19:05] VITALS: BP 128/58; PULSE 84; RESP 22; TEMP 36.4; O2SAT 96
[2025-02-04 19:14] VITALS: BP 130/87; PULSE 85; RESP 18; O2SAT 95
--- NOTE | 2025-02-04 19:34 | ECG_ITS ---
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 Measurements Intervals [place] Rate: 78 P: 11 DE: 189 QRS: 32 QRSD: 198 T: 230 QT: 478 QTc: 547 Interpretive Statements SINUS RHYTHM LEFT BUNDLE BRANCH BLOCK [120+ ms QRS DURATION, 80+ ms Q/S IN V1/V2, 85+ ms R IN I/aVL/V5/V6] Compared to ECG 01/22/2025 20:57:12 Left bundle-branch block now present Intraventricular conduction delay no longer present Electronically Signed On 02-05-2025 08:33:28 CDT by Bjorn Watkins M.D. [email or web address]
--- NOTE | 2025-02-04 19:34 | XRR_ITS ---
PROCEDURE INFORMATION: Exam: XR Chest Exam date and time: 02/04/2025 7:39 PM Age: 59 years old Clinical indication: Pain; Shortness of breath; Chest pressure; Additional info: Sob/cp TECHNIQUE: Imaging protocol: Radiologic exam of the chest. Views: 1 view. COMPARISON: CT chest w con* [id number] 01/22/2025 9:12 PM FINDINGS: Lungs: Mild haziness in the right perihilar mid lung. Bibasilar airspace disease. Possible mild central vascular congestion. Right apical scarring. Pleural spaces: Blunting of the costophrenic angles suggesting pleural effusions. No pneumothorax. Heart/Mediastinum: The heart is again noted to be enlarged but stable. Bones/joints: Patient's previously described left 10th through 12th rib fractures not well visualized on this exam. No new osseous findings. XR/XR chest 1V portable [id number] IMPRESSION: Bibasilar airspace disease with bilateral pleural effusions and possible mild central vascular congestion.
[2025-02-04] MEDS: FUROsemide 10 mg/mL SDV 10mL 80 MG IVP (19:56)
[2025-02-04 19:57] LABS: Troponin(5th) Baseline 29 ng/L (0-15)
[2025-02-04 20:00] LABS: Hematocrit 42.4 % (37-53); Hemoglobin 13.90 g/dL (11.27-16.99); Mean Corpuscular HGB Conc 32.8 g/dL (30-55); Mean Corpuscular Hemoglobin 30.4 pg (27-33); Mean Corpuscular Volume 92.8 fl (82-101); Nucleated Red Blood Cells % 0 %; Platelet Count 245 10^3/cmm (157-399); Red Blood Count 4.57 10^6/uL (3.85-5.65); White Blood Count 6.02 10^3/uL (3.29-11.43)
[2025-02-04 20:11] LABS: Add Urine Microscopic? NO; Glucose Urine UA Negative (Normal); Nitrate Urine Negative (Negative); Specific Gravity, Urine 1.003 (1.005-1.030)
[2025-02-04 20:12] LABS: Alanine Aminotransferase 6 U/L (0-41); Albumin Level 4.1 g/dL (3.5-5.2); Alkaline Phosphatase 74 U/L (40-130); Aspartate Amino Transferase 16 U/L (0-40); Blood Urea Nitrogen 10 mg/dL (6-20); Calcium 9.0 mg/dL (8.5-10.5); Carbon Dioxide 21 mmol/L (22-29); Chloride 105 mmol/L (98-107); Creatinine Clr Calc Pharmacy 83.0515; Globulin 2.7 g/dL (1.3-4.6); Glucose 89 mg/dL (65-115); NT Pro B Type Natriuretic Pept 5481 pg/mL (0-125); Osmolality Calculated 291 mOsm/kg (285-295); Sodium 141 mmol/L (136-145); Total Protein 6.8 g/dL (6.6-8.7)
[2025-02-04 20:15] LABS: Anion Gap 19.4 (5-19); Potassium 4.4 mmol/L (3.5-5.1)
[2025-02-04 20:17] VITALS: BP 130/86; PULSE 84; O2SAT 93
[2025-02-04 20:17] LABS: Charge for UA Resulting for Rev
--- NOTE | 2025-02-04 20:29 | ED_ITS ---
HPI - SOB/Dyspnea 2 General: Chief Complaint: Shortness of Breath/Dyspnea Stated Complaint: Chest Pain, SOB Time Seen by Provider: 02/04/25 19:27 Source: patient Mode of arrival: ambulatory Limitations: no limitations History of Present Illness: HPI Narrative: Patient is a 59-year-old male who presents to the emergency department complaining of chest pain for the past 2 days. Also notes that he has had worsening peripheral edema and shortness of breath, has been off of his medications for 2 weeks. Is unable to tell me what his medications are, reviewing his med list appears that he does take Lasix. Also was seen here in the emergency department recently on 01/22 diagnosed with rib fractures, he states that this pain has subsided and that the pain in his chest is different. Notes some lightheaded and dizziness. Past medical history of congestive heart failure, cardiomyopathy, and hypertension. Does not use home oxygen, states that his current pain is to the left chest and nonradiating. Worse with deep breaths. Endorsing orthopnea. Vitals stable at this time. MD elicited complaint: shortness of breath, pain with inspiration and chest pain Pertinent past history: congestive heart failure Onset (ago): day(s) (2) Timing: constant Exacerbating factors: lying flat Known history of: congestive heart failure Associated symptoms: Reports chest pain, dizziness and lightheadedness; Deny abdominal pain, fever(s), nausea, palpitations or vomiting Treatment prior to arrival: none Related Data Previous Rx's ?Medication ?Instructions ?Recorded albuterol sulfate 90 mcg/actuation 2 inh inhalation Q4 H PRN shortness 01/05/24 aerosol inhaler of breath or wheezing #6.7 g jerald empagliflozin 10 mg tablet 10 mg PO DAILY 30 days #30 tabs 01/10/24 (Jardiance) sacubitril 24 mg-valsartan 26 mg 1 tab PO BID #60 tabs 01/10/24 tablet (Entresto) potassium chloride 10 mEq 10 meq PO DAILY #30 caps 08/29 capsule,extended release aspirin 81 mg tablet,delayed 81 mg PO DAILY #90 tabs 1 release atorvastatin 40 mg tablet (Lipitor) 40 mg PO DAILY #90 tabs 02/04/25 furosemide 40 mg tablet (Lasix) 40 mg PO DAILY #90 tab s 02/04/25 Allergies Allergy/AdvReac Type Severity Reaction Status Date / Time No Known Allergies Allergy Verified 02/04/25 19:14 Review of Systems 2 General: Reports: 10 or more systems reviewed and unremarkable except in HPI and below Const: Denies: fever(s), chills or fatigue Eyes: Denies: change in vision ENMT: Denies: throat pain, ear or mastoid pain or nasal discharge Card: Reports: chest pain and lightheadedness; Denies: palpitations or swelling of feet/ankles Resp: Reports: dyspnea; Denies: productive cough or wheezing GI: Denies: abdominal pain, nausea, vomiting, diarrhea or constipation : Denies: flank pain, difficulty urinating, dysuria or urinary frequency Musc: Denies: neck pain, back pain or joint pain Skin/Breast: Denies: rash Neuro: Reports: dizziness; Denies: headache(s), numbness in extremities or weakness in extremities PFSH ED 2 PFSH: Medical History Cardiomyopathy Systolic CHF LVEF 30% Severe pulmonary hypertension New onset of congestive heart failure Osteoarthritis involving multiple joints on both sides of body back & shoulder Chronic pain back & shoulder Hypertension Family History Father No problems noted. Mother No problems noted. Social History Smoking and tobacco/nicotine status: current some day tobacco/nicotine user Alcohol intake: current Alcohol intake frequency: 3 or more drinks per day Alcohol type: beer Substance/Drug Use: former Physical Exam 2 Const: COMMON NORMALS: no acute distress, patient oriented x3 and no limitations GENERAL APPEARANCE: cooperative, comfortable and well developed ORIENTATION/CONSCIOUSNESS: Yes awake, Yes oriented to person, Yes oriented to place and Yes oriented to time HENMT: COMMON NORMALS: normocephalic, atraumatic and hearing grossly normal bilaterally HEAD & SCALP: normocephalic and atraumatic Eye: COMMON NORMALS: Equal, round and reactive pupils present, EOMs intact bilaterally and conjunctivae normal CONJUNCTIVA: Yes conjunctivae normal P UPIL: Yes Equal, round and reactive pupils present Neck/C-Spine: COMMON NORMALS: full ROM and supple Resp: COMMON NORMALS: normal respiratory effort, No retractions and No use of accessory muscles OTHER: Mild basilar crackles bilaterally, however no acute respiratory distress, pursed lip breathing, or tachypnea Cardio: COMMON NORMALS: regular rate, regular rhythm, No clicks present (Cardio), No murmurs present (Cardio) and No rub (Cardio) RATE: regular rate RHYTHM: regular rhythm GI: COMMON NORMALS: Normal to inspection, nondistended, normoactive bowel sounds present, Soft to palpation and non-tender AUSCULTATION: Yes normoactive bowel sounds PALPATION: Yes Soft to palpation RECTAL EXAM: Yes deferred OTHER: Central obesity, mild abdominal edema Extremity: COMMON NORMALS: normal to inspection, full ROM and capillary refill normal NARRATIVE EXTREMITY EXAM: 2+ pitting edema to the ankles Neuro: COMMON NORMALS: patient oriented x3, moves all extremities, no focal motor deficits and no sensory deficits noted SENSORIUM/ORIENTATION: Yes oriented to person, Yes oriented to place and Yes oriented to time Skin: COMMON NORMALS: no rashes or lesions noted GENERAL SKIN EXAM: no rashes or lesions noted Course 2 Vital Signs: Vital signs: Vital Signs Temperature 97.5 F L 02/04/25 19:05 Pulse Rate 90 02/04/25 20:56 Respiratory Rate 18 02/04/25 19:14 Blood Pressure 116/80 02/04/25 20:56 Pulse Oximetry 96 02/04/25 20:56 Oxygen Delivery Me thod Room Air 02/04/25 20:17 MDM - SOB/Dyspnea Medical Decision Making The patient presented for shortness of breath, chest pain, and peripheral edema. 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 Reviewing his med list appears he is supposed to be on 40 mg of Lasix daily, likely explaining his increased fluid burden at this time. He is not tachypneic and there is no significant signs of respiratory distress on exam, he is not requiring supplemental oxygen. Overall has remained stable and nontoxic throughout the ED stay. There is no leukocytosis, CMP is unremarkable, there is elevation in his BNP not unlike previous labs here, troponin baseline 29. He does have COPD, chest x-ray showing signs of this bilateral pleural effusion. He is given 80 mg Lasix here through an IV. I did speak with hospitalist, Dr. Weinberg, who says this patient sounds clinically stable for treatment home if he is started on his medications but needs prompt outpatient follow-up of which I will arrange. Also discussed with the patient his preference and he states he does not want admitted and wants to have his medications refilled. I did tell him that I will refer him to primary care provider for outpatient follow-up, he understands and also endorses understanding to return precautions given. Lab Data 02/04/25 19:32 02/04/25 19:32 Labs/Radiology: Radiology Impressions Chest X-Ray 02/04/25 19:34 IMPRESSION: Bibasilar airspace disease with bilateral pleural effusions and possible mild central vascular congestion. Laboratory Results WBC 6.02 10^3/uL (3.29-11.43) 02/04/25 19:32 RBC 4.57 10^6/uL (3.85-5.65) 02/04/25 19:32 Hgb 13.90 g/dL (11.27-16.99) 02/04/25 19:32 Hct 42.4 % (37-53) 02/04/25 19:32 MCV 92.8 fl (82-101) 02/04/25 19:32 MCH 30.4 pg (27-33) 02/04/25 19:32 MCHC 32.8 g/dL (30-55) 02/04/25 19:32 RDW 14.6 % (12.1-15.1) 02/04/25 19:32 Plt Count 245 10^3/cmm (157-399) 02/04/25 19:32 MPV 10.6 fL (7.4-10.4) H 02/04/25 19:32 Neut % (Auto) 72.9 % 02/04/25 19:32 Lymph % (Auto) 17.1 % 02/04/25 19:32 [place] % (Auto) 8.5 % 02/04/25 19:32 Eos % (Auto) 0.5 % 02/04/25 19:32 Baso % (Auto) 0.7 % 02/04/25 19:32 Neut # (Auto) 4.39 10^3/uL (1.8-7.7) 02/04/25 19:32 Lymph # (Auto) 1.0 10^3/uL (0.8-4.8) 02/04/25 19:32 [place] # (Auto) 0.5 10^3/uL (0.2-0.9) 02/04/25 19:32 Eos # (Auto) 0.0 10^3/uL (0.0-0.8) 02/04/25 19:32 Baso # (Auto) 0.0 10^3/uL (0.0-0.1) 02/04/25 19:32 Nucleated RBC % (auto) 0 % 02/04/25 19:32 Nucleated RBCs # 0.0 /100WBC 02/04/25 19:32 Sodium 141 mmol/L (136-145) 02/04/25 19:32 Potassium 4.4 mmol/L (3.5-5.1) 02/04/25 19:32 Chloride 105 mmol/L (98-107) 02/04/25 19:32 Carbon Dioxide 21 mmol/L (22-29) L 02/04/25 19:32 Anion Gap 19.4 (5-19) H 02/04/25 19:32 BUN 10 mg/dL (6-20) 02/04/25 19:32 Creatinine 0.9 mg/dL (0.7-1.2) 02/04/25 19:32 GFR Calculation 86.4 mL/min (90-130) L 02/04/25 19:32 Glucose 89 mg/dL (65-115) 02/04/25 19:32 Calculated Osmolality 291 mOsm/kg (285-295) 02/04/25 19:32 Calcium 9.0 mg/dL (8.5-10.5) 02/04/25 19:32 Total Bilirubin 0.5 mg/dL (0.15-1.2) 02/04/25 19:32 AST 16 U/L (0-40) 02/04/25 19:32 ALT 6 U/L (0-41) 02/04/25 19:32 Alkaline Phosphatase 74 U/L (40-130) 02/04/25 19:32 Troponin T Baseline 29 ng/L (0-15) H 02/04/25 19:32 NT-Pro-B Natriuret Pep 5481 pg/mL (0-125) H 02/04/25 19:32 Total Protein 6.8 g/dL (6.6-8.7) 02/04/25 19:32 Albumin 4.1 g/dL (3.5-5.2) 02/04/25 19:32 Globulin 2.7 g/dL (1.3-4.6) 02/04/25 19:32 Urine Color Yellow (Yellow) 02/04/25 20:05 Urine Appearance Clear (CLEAR) 02/04/25 20:05 Urine pH 5.5 (5-7) 02/04/25 20:05 Ur Specific [place] 1.003 (1.005-1.030) L 02/04/25 20:05 Urine Protein Negative (Negative) 02/04/25 20:05 Urine Glucose (UA) Negative (Normal) 02/04/25 20:05 Urine Ketones Negative (Negative) 02/04/25 20:05 Urine Blood Negative (Negative) 02/04/25 20:05 Urine Nitrate Negative (Negative) 02/04/25 20:05 Urine Bilirubin Negative (Negative) 02/04/25 20:05 Urine Urobilinogen 0.2 mg/dL (Negative) 02/04/25 20:05 Ur Leukocyte Esterase Negative (Negative) 02/04/25 20:05 Amorphous Sediment Not Reportable 02/04/25 20:05 Influenza A (PCR) Negative (Negative) 02/04/25 20:03 Influenza Type B (PCR) Negative (Negative) 02/04/25 20:03 RSV (PCR) Negative (Negative) 02/04/25 20:03 SARS-CoV-2 (PCR) Negative (Negative) 02/04/25 20:03 All radiology interpretation(s) finalized by discharge Discharge Plan Discharge Patient Disposition: Home Clinical Impression: Systolic CHF Condition: Stable Prescriptions: New furosemide [Lasix] 40 mg tablet 40 mg PO DAILY Qty: 90 0RF atorvastatin [Lipitor] 40 mg tablet 40 mg PO DAILY Qty: 90 0RF aspirin 81 mg tablet,delayed release (DR/EC) 81 mg PO DAILY Qty: 90 0RF Discontinued aspirin 81 mg tablet,delayed release (DR/EC) 81 mg PO DAILY Qty: 30 5RF atorvastatin 40 mg Tablet 40 mg PO DAILY Qty: 30 0RF furosemide [Lasix] 40 mg tablet 40 mg PO DAILY Qty: 90 3RF No Action Entresto 24-26 mg tablet 1 tab PO BID Qty: 60 1RF Jardiance 10 mg tablet 10 mg PO DAILY 30 Days Qty: 30 5RF albuterol sulfate 90 mcg/actuation HFA aerosol inhaler 2 inh INHALATION Q4H PRN (Reason: shortness of breath or wheezing) Qty: 6.7 1RF potassium chloride 10 mEq capsule, extended release 10 meq PO DAILY Qty: 30 5RF Discharge Orders: Discharge ED (Routine); Ordered 02/04/25 Ordered By: Edouard Parekh Referrals: Josette Sy FNP [Primary Care Provider, Cardiology] Patient Instructions: Patient Portal & Heather Instructions Activity Restrictions/Additional Instructions: Please follow-up with primary care provider as has been arranged. Take the medications prescribed to you. Please return with any worsening chest pain, worsening shortness of breath, fevers, or any other major concerns that you have. Please keep a log of your blood pressure at home to report your primary care provider. Print Language: Malawian Coding Level of Care Code ED Medical Geneticist for Sangeetha Cruz
[2025-02-04 20:46] LABS: Respiratory Syncytial Virus Ce NEGATIVE (Negative); SARS-CoV-2 PCR NEGATIVE (Negative)
[2025-02-04 20:56] VITALS: BP 116/80; PULSE 90; O2SAT 96
--- NOTE | 2025-02-05 07:41 | DCPLANNER ---
messaged [facility] to establish PCP
== END 2025-02-04 20:57 | disposition home or self-care (01) ==
PROVIDERS: Emergency Provider Physician Assistant; PCP Nurse Practitioner Family
DX: I11.0 Hypertensive heart disease with heart failure (principal); I50.20 Unspecified systolic (congestive) heart failure; Z72.0 Tobacco use; Z11.52 Encounter for screening for COVID-19; Z79.82 Long term (current) use of aspirin
CPT/HCPCS: 71045; 80053; 81003; 83880; 84484; 85025; 87637; 93005; 96374; 99285; J1938

== ENCOUNTER 2025-03-28 16:33 | Inpatient (IN) | payer MEDICAID, SELFPAY ==
[2025-03-28] VITALS (11 sets, daily range): BP systolic 119–139; BP diastolic 77–99; PULSE 60–98; RESP 17–32; TEMP 36–36.8; O2SAT 92–97
--- NOTE | 2025-03-28 16:48 | XRR_ITS ---
PROCEDURE INFORMATION: Exam: XR Chest Exam date and time: 03/28/2025 5:02 PM Age: 59 years old Clinical indication: Cough and shortness of breath; Additional info: SOB; Cough x 3 days TECHNIQUE: Imaging protocol: Radiologic exam of the chest. Views: 1 view. COMPARISON: CR (CHEST, ) 02/04/2025 7:39 PM FINDINGS: Lungs: Hazy ground-glass opacities are seen in the right lung relatively diffusely and are slightly increased in prominence. Mild atelectasis/ground-glass opacity at the left base. Pleural spaces: Small right pleural effusion without change. Minimal blunting of the left costophrenic sulcus. Heart/Mediastinum: Unremarkable. No cardiomegaly. Bones/joints: Unremarkable. XR/XR chest 1V portable [id number] IMPRESSION: Hazy ground-glass opacities in the right lung which are increased. Small right effusion.
[2025-03-28 17:14] LABS: Hematocrit 42.5 % (37-53); Hemoglobin 13.80 g/dL (11.27-16.99); Mean Corpuscular HGB Conc 32.5 g/dL (30-55); Mean Corpuscular Hemoglobin 29.7 pg (27-33); Mean Corpuscular Volume 91.6 fl (82-101); Nucleated Red Blood Cells % 0 %; Platelet Count 240 10^3/cmm (157-399); Red Blood Count 4.64 10^6/uL (3.85-5.65); White Blood Count 4.30 10^3/uL (3.29-11.43)
--- NOTE | 2025-03-28 17:19 | ECG_ITS ---
[facility] Test Date: 2025-03-28 Pat Name: Jude Lemon Department: Room: Gender: Male Cost Recovery Technician: : 1965 Requested By: Carlee Durand Order Number: [id number] Pauline MD: Johnie Browning M.D. Measurements Intervals [place] Rate: 81 P: 60 [place]: 179 QRS: -27 QRSD: 198 T: 128 QT: 474 QTc: 552 Interpretive Statements SINUS RHYTHM BORDERLINE LEFT AXIS DEVIATION [QRS AXIS < -20] INTRAVENTRICULAR CONDUCTION DELAY [130+ ms QRS DURATION] Compared to ECG 02/04/2025 19:10:01 Intraventricular conduction delay now present Left bundle-branch block no longer present Electronically Signed On 03-29-2025 17:27:13 TOWEL INSPECTOR by Johnie Browning M.D. [email or web address]
[2025-03-28 17:23] LABS: INR 1.05 (0.8-1.2); Prothrombin Time 14.50 SECONDS (12.1-14.9)
[2025-03-28 17:24] LABS: Partial Thromboplastin Time 27.6 SECONDS (23.9-36.7)
--- NOTE | 2025-03-28 17:26 | ED_ITS ---
HPI - SOB/Dyspnea 2 General: Chief Complaint: Shortness of Breath/Dyspnea Stated Complaint: Can't Breath N/Va Time Seen by Provider: 03/28/25 16:48 Source: patient Mode of arrival: ambulatory Limitations: no limitations History of Present Illness: HPI Narrative: Patient is a 59-year-old male with past medical history of congestive heart failure, cardiomyopathy, and pulmonary hypertension who presents the emergency department complaining of shortness of breath that has been worsening over the past 4 days, but overall states it has been bothering him for a year and a half. He was seen here recently in the emergency department for similar symptoms, as he had been out of his Lasix at that time. He was refilled on his Lasix and established with primary care, he notes that he was doing well until he ran out of his Lasix recently again. He notes that over the past week his legs have gotten progressively more swollen, he has shortness of breath with a productive cough, and has been having chest pain. He tried to go to the walk-in clinic but was sent here for the symptoms. He notes shortness of breath at this time, does endorse orthopnea. He is oxygenating well on room air, does not use supplemental oxygen at home. MD elicited complaint: shortness of breath, cough and chest pain Pertinent past history: congestive heart failure Associated symptoms: Reports chest pain; Deny abdominal pain, fever(s), lightheadedness, nausea, palpitations or vomiting Related Data Previous Rx's ?Medication ?Instructions ?Recorded empagliflozin 10 mg tablet 10 mg PO DAILY 30 days #30 tabs 01/10/24 (Jardiance) sacubitril 24 mg-valsartan 26 mg 1 tab PO BID #60 tabs 01/10/24 tablet (Entresto) potassium chloride 10 mEq 10 meq PO DAILY #30 caps 08/29 capsule,extended release aspirin 81 mg tablet,delayed 81 mg PO DAILY #90 tabs 1 release atorvastatin 40 mg tablet (Lipitor) 40 mg PO DAILY #90 tabs 02/04/25 furosemide 40 mg tablet (Lasix) 40 mg PO DAILY #90 tab s 02/04/25 Allergies Allergy/AdvReac Type Severity Reaction Status Date / Time No Known Allergies Allergy Verified 03/28/25 15:59 Review of Systems 2 General: Reports: 10 or more systems reviewed and unremarkable except in HPI and below Const: Denies: fever(s), chills or fatigue Eyes: Denies: change in vision ENMT: Denies: throat pain, ear or mastoid pain or nasal discharge Card: Reports: chest pain and swelling of feet/ankles; Denies: palpitations or lightheadedness Resp: Reports: dyspnea and productive cough; Denies: wheezing GI: Denies: abdominal pain, nausea, vomiting, diarrhea or constipation : Denies: flank pain, difficulty urinating, dysuria or urinary frequency Musc: Denies: neck pain, back pain or joint pain Skin/Breast: Denies: rash Neuro: Denies: headache(s), numbness in extremities or weakness in extremities PFSH ED 2 PFSH: Medical History Cardiomyopathy Systolic CHF LVEF 30% Severe pulmonary hypertension New onset of congestive heart failure Osteoarthritis involving multiple joints on both sides of body back & shoulder Chronic pain back & shoulder Hypertension Family History Father No problems noted. Mother No problems noted. Social History Smoking and tobacco/nicotine status: current every day tobacco/nicotine user Alcohol intake: current Alcohol intake frequency: 3 or more drinks per day Alcohol type: beer Substance/Drug Use: former Physical Exam 2 Const: COMMON NORMALS: no acute distress, patient oriented x3 and no limitations GENERAL APPEARANCE: cooperative, comfortable and well developed ORIENTATION/CONSCIOUSNESS: Yes awake, Yes oriented to person, Yes oriented to place and Yes oriented to time HENMT: COMMON NORMALS: normocephalic, atraumatic and hearing grossly normal bilaterally HEAD & SCALP: normocephalic and atraumatic Eye: COMMON NORMALS: Equal, round and reactive pupils present, EOMs intact bilaterally and conjunctivae normal CONJUNCTIVA: Yes conjunctivae normal P UPIL: Yes Equal, round and reactive pupils present Neck/C-Spine: COMMON NORMALS: full ROM and supple Resp: COMMON NORMALS: normal respiratory effort, No retractions and No use of accessory muscles EFFORT & INSPECTION: Yes Actively coughing and Yes audible wheezes OTHER: Diminished lung sounds in the bases Cardio: COMMON NORMALS: regular rate, regular rhythm, No clicks present (Cardio), No murmurs present (Cardio) and No rub (Cardio) RATE: regular rate RHYTHM: regular rhythm GI: COMMON NORMALS: Normal to inspection, nondistended, normoactive bowel sounds present, Soft to palpation and non-tender AUSCULTATION: Yes normoactive bowel sounds PALPATION: Yes Soft to palpation RECTAL EXAM: Yes deferred Extremity: COMMON NORMALS: full ROM and capillary refill normal NARRATIVE EXTREMITY EXAM: 3+ pitting edema bilateral lower extremi ties Neuro: COMMON NORMALS: patient oriented x3, moves all extremities, no focal motor deficits and no sensory deficits noted SENSORIUM/ORIENTATION: Yes oriented to person, Yes oriented to place and Yes oriented to time Skin: COMMON NORMALS: no rashes or lesions noted GENERAL SKIN EXAM: no rashes or lesions noted Course 2 Vital Signs: Vital signs: Vital Signs Temperature 97.5 F L 03/28/25 16:35 Pulse Rate 60 03/28/25 20:14 Respiratory Rate 22 H 03/28/25 20:14 Blood Pressure 137/89 03/28/25 20:14 Pulse Oximetry 95 03/28/25 20:14 Oxygen Delivery Me thod Room Air 03/28/25 20:14 MDM - SOB/Dyspnea Medical Decision Making This patient presented for evaluation of acute on chronic shortness of breath, has been dealing with it for he states greater than a year but worsening for the past 4 days. He has been seen here previously in the emergency department for failure of adherence to his Lasix, again states that he has not been taking this recently as he ran out and thus has had worsening peripheral edema. Also notes shortness of breath and chest pain. He is given 80 mg of Lasix after IV established, noted to have diminished breath sounds at the base and overall he is ill-appearing. 3+ pitting edema bilateral lower extremities. Chest x-ray showing hazy ground glass opacity in the right lung which could represent infectious process, also small right pleural effusion. He is started on IV azithromycin and Rocephin. Lab workup shows elevation in BNP which is not unlike previous, currently is 6188. He has a negative delta troponin. Rest of vital stable. I did speak to Dr. Benjamin, hospitalist, who consults patient here in the hospital and agrees to except cardiac stepdown unit. Spoke to Dr. Parnell about this patient who will place admit orders at this time. Patient is agreeing upon admission at this time. Lab Data 03/28/25 17:06 03/28/25 17:06 Labs/Radiology: Radiology Impressions Chest X-Ray 03/28/25 16:48 IMPRESSION: Hazy ground-glass opacities in the right lung which are increased. Small right effusion. Laboratory Results WBC 4.30 10^3/uL (3.29-11.43) 03/28/25 17:06 RBC 4.64 10^6/uL (3.85-5.65) 03/28/25 17:06 Hgb 13.80 g/dL (11.27-16.99) 03/28/25 17:06 Hct 42.5 % (37-53) 03/28/25 17:06 MCV 91.6 fl (82-101) 03/28/25 17:06 MCH 29.7 pg (27-33) 03/28/25 17:06 MCHC 32.5 g/dL (30-55) 03/28/25 17:06 RDW 15.1 % (12.1-15.1) 03/28/25 17:06 Plt Count 240 10^3/cmm (157-399) 03/28/25 17:06 MPV 9.5 fL (7.4-10.4) 03/28/25 17:06 Neut % (Auto) 69.1 % 03/28/25 17:06 Lymph % (Auto) 19.5 % 03/28/25 17:06 [place] % (Auto) 9.8 % 03/28/25 17:06 Eos % (Auto) 0.5 % 03/28/25 17:06 Baso % (Auto) 0.9 % 03/28/25 17:06 Neut # (Auto) 2.97 10^3/uL (1.8-7.7) 03/28/25 17:06 Lymph # (Auto) 0.8 10^3/uL (0.8-4.8) 03/28/25 17:06 [place] # (Auto) 0.4 10^3/uL (0.2-0.9) 03/28/25 17:06 Eos # (Auto) 0.0 10^3/uL (0.0-0.8) 03/28/25 17:06 Baso # (Auto) 0.0 10^3/uL (0.0-0.1) 03/28/25 17:06 Nucleated RBC % (auto) 0 % 03/28/25 17:06 Nucleated RBCs # 0.0 /100WBC 03/28/25 17:06 PT 14.50 SECONDS (12.1-14.9) 03/28/25 17:06 INR 1.05 (0.8-1.2) 03/28/25 17:06 APTT 27.6 SECONDS (23.9-36.7) 03/28/25 17:06 Sodium 137 mmol/L (136-145) 03/28/25 17:06 Potassium 4.4 mmol/L (3.5-5.1) 03/28/25 17:06 Chloride 105 mmol/L (98-107) 03/28/25 17:06 Carbon Dioxide 19 mmol/L (22-29) L 03/28/25 17:06 Anion Gap 17.4 (5-19) 03/28/25 17:06 BUN 14 mg/dL (6-20) 03/28/25 17:06 Creatinine 1.0 mg/dL (0.7-1.2) 03/28/25 17:06 GFR Calculation 76.5 mL/min (90-130) L 03/28/25 17:06 Glucose 77 mg/dL (65-115) 03/28/25 17:06 Calculated Osmolality 283 mOsm/kg (285-295) L 03/28/25 17:06 Calcium 8.9 mg/dL (8.5-10.5) 03/28/25 17:06 Total Bilirubin 0.5 mg/dL (0.15-1.2) 03/28/25 17:06 AST 12 U/L (0-40) 03/28/25 17:06 ALT 7 U/L (0-41) 03/28/25 17:06 Alkaline Phosphatase 84 U/L (40-130) 03/28/25 17:06 Troponin T Baseline 31 ng/L (0-15) H 03/28/25 17:06 Troponin T 120 Minute 29.94 ng/L (0-15) H 03/28/25 19:07 Delta Troponin T -1.06 ABS# (0-10) L 03/28/25 19:07 NT-Pro-B Natriuret Pep 6188 pg/mL (0-125) H 03/28/25 17:06 Total Protein 6.6 g/dL (6.6-8.7) 03/28/25 17:06 Albumin 4.0 g/dL (3.5-5.2) 03/28/25 17:06 Globulin 2.6 g/dL (1.3-4.6) 03/28/25 17:06 Lipase 52 U/L (13-60) 03/28/25 17:06 Influenza A (PCR) Negative (Negative) 03/28/25 18:46 Influenza Type B (PCR) Negative (Negative) 03/28/25 18:46 RSV (PCR) Negative (Negative) 03/28/25 18:46 SARS-CoV-2 (PCR) Negative (Negative) 03/28/25 18:46 All radiology interpretation(s) finalized by discharge Discharge Plan Discharge Patient Disposition: Admitted As Inpatient Clinical Impression: Acute exacerbation of CHF (congestive heart failure) Qualifiers: Heart failure type: systolic Qualified Code(s): I50.23 - Acute on chronic systolic (congestive) heart failure Pneumonia Qualifiers: Pneumonia type: due to unspecified organism Laterality: right Lung location: l ower lobe of lung Qualified Code(s): J18.9 - Pneumonia, unspecified organism Condition: Stable Coding Level of Care Code ED [place] Former for Sangeetha Cruz
[2025-03-28 17:31] LABS: Troponin(5th) Baseline 31 ng/L (0-15)
[2025-03-28 17:39] LABS: Alanine Aminotransferase 7 U/L (0-41); Albumin Level 4.0 g/dL (3.5-5.2); Alkaline Phosphatase 84 U/L (40-130); Anion Gap 17.4 (5-19); Aspartate Amino Transferase 12 U/L (0-40); Blood Urea Nitrogen 14 mg/dL (6-20); Calcium 8.9 mg/dL (8.5-10.5); Carbon Dioxide 19 mmol/L (22-29); Chloride 105 mmol/L (98-107); Globulin 2.6 g/dL (1.3-4.6); Glucose 77 mg/dL (65-115); Lipase 52 U/L (13-60); NT Pro B Type Natriuretic Pept 6188 pg/mL (0-125); Osmolality Calculated 283 mOsm/kg (285-295); Potassium 4.4 mmol/L (3.5-5.1); Sodium 137 mmol/L (136-145); Total Protein 6.6 g/dL (6.6-8.7)
[2025-03-28] MEDS: FUROsemide 10 mg/mL SDV 10mL 80 MG IVP (18:20)
--- NOTE | 2025-03-28 18:48 | ECG_ITS ---
[employer] [facility] Date: 2025-03-28 Pat Name: Jude Lemon Department: Room: Gender: Male Quality Project Manager: : 1965 Requested By: Carlee Durand Order Number: [id number] Pauline MD: Johnie Browning M.D. Measurements Intervals [place] Rate: 72 P: 16 [place]: 168 QRS: -8 QRSD: 200 T: 134 QT: 506 QTc: 556 Interpretive Statements SINUS RHYTHM LEFT BUNDLE BRANCH BLOCK [120+ ms QRS DURATION, 80+ ms Q/S IN V1/V2, 85+ ms R IN I/aVL/V5/V6] Compared to ECG 03/28/2025 17:19:11 Left bundle-branch block now present Intraventricular conduction delay no longer present Electronically Signed On 03-29-2025 17:38:02 RUG CLEANING SUPERVISOR by Johnie Browning M.D. [email or web address]
[2025-03-28 19:32] LABS: Respiratory Syncytial Virus Ce NEGATIVE (Negative); SARS-CoV-2 PCR NEGATIVE (Negative)
[2025-03-28 19:42] LABS: Troponin 5 2HR 29.94 ng/L (0-15)
[2025-03-28 19:44] LABS: Troponin 5 2HR Delta -1.06 ABS# (0-10)
--- NOTE | 2025-03-28 19:57 | P.HP_ITS ---
Providers/Chief Complaint 2 Primary Care Provider: LAST [facility]erta Chief Complaint: Shortness of breath History of Present Illness Jude Lemon is a 59 year old male with history significant for HFrEF(EF 30-35% from echocardiogram 05/2024) who presents with complaints of shortness of breath. He states that shortness of breath began approximately 3 to 4 days prior to presentation. He also mentions that he has had dizziness and a sensation of almost passing out when walking short distances. There is associated bilateral leg swelling to the knees as well as associated cough with sputum production. He otherwise denies any fevers or chills. No nausea, vomiting, diarrhea, or abdominal pain. He reports occasional sweats and palpitations. He tells me that during the same time period, he has not taken any of his prescribed medications. He states that he is out of these medications and has not had any refills available. He is unable to tell me what medications he is prescribed and he is not track his weight routinely. On the day of presentation, he initially presented to the walk-in clinic whom advised he present to the ED today Review of Systems 2 Narrative: As stated in the HPI Medications/Allergies Home Medications ?Medication ?Instructions ?Recorded ?Confirmed ?Last Taken ?Type empagliflozin 10 mg tablet 10 mg PO DAILY 30 days #30 tabs 01/10/24 03/28/25 05/06/24 Rx (Jardiance) sacubitril 24 mg-valsartan 26 mg 1 tab PO BID #60 tabs 01/10/24 03/28/25 05/06/24 Rx tablet (Entresto) potassium chloride 10 mEq 10 meq PO DAILY #30 caps 08/2903/28/25 05/06/24 Rx capsule,extended release aspirin 81 mg tablet,delayed 81 mg PO DAILY #90 tabs 1 03/28/25 Unknown Rx release atorvastatin 40 mg tablet (Lipitor) 40 mg PO DAILY #90 tabs 02/04/25 03/28/25 Unknown Rx furosemide 40 mg tablet (Lasix) 40 mg PO DAILY #90 tab s 02/04/25 03/28/25 Unknown Rx Allergies Allergy/AdvReac Type Severity Reaction Status Date / Time No Known Allergies Allergy Verified 03/28/25 15:59 PFSH Acute 2 PFSH: Medical History Cardiomyopathy Systolic CHF LVEF 30% Severe pulmonary hypertension New onset of congestive heart failure Osteoarthritis involving multiple joints on both sides of body back & shoulder Chronic pain back & shoulder Hypertension Family History Father No problems noted. Mother No problems noted. Social History Smoking and tobacco/nicotine status: current every day tobacco/nicotine user Alcohol intake: current Alcohol intake frequency: 3 or more drinks per day Alcohol type: beer Substance/Drug Use: former Vitals/I&O/Wt Last Vital Signs Temp 97.5 F L 03/28/25 16:35 Pulse 98 03/28/25 19:53 Resp 20 H 03/28/25 19:53 BP 131/85 03/28/25 19:53 Pulse Ox 94 03/28/25 19:53 O2 Del Method Room Air 03/28/25 19:53 03/28/25 03/28/25 03/28/25 06:59 14:59 22:59 Intake Total 0 / 0 Balance 0 / 0 Weight last 48 hrs Weight 93.157 kg Physical Exam 2 Const: COMMON NORMALS: no acute distress and patient oriented x3 GENERAL APPEARANCE: cooperative ORIENTATION/CONSCIOUSNESS: Yes awake, Yes oriented to person, Yes oriented to place and Yes oriented to time HENMT: COMMON NORMALS: normocephalic and atraumatic Eye: COMMON NORMALS: Equal, round and reactive pupils present and EOMs intact bilaterally Chest: COMMONS NORMALS: normal inspection of the chest Resp: COMMON NORMALS: No retractions and No use of accessory muscles EFFORT & INSPECTION: Yes able to speak in complete sentences AUSCULTATION: clear to auscultation bilaterally Cardio: COMMON NORMALS: regular rate, regular rhythm, S1 normal heart sound present, S2 normal heart sound present, No gallops present (Cardio), No clicks present (Cardio), No murmurs present (Cardio) and No rub (Cardio) RATE: r egular rate RHYTHM: regular rhythm Extremity: NARRATIVE EXTREMITY EXAM: 2+ bilateral lower extremity edema to th e knees Neuro: COMMON NORMALS: patient oriented x3 Psych: COMMON NORMALS: mental status grossly normal Skin: COMMON NORMALS: no rashes or lesions noted Data 03/28/25 17:06 03/28/25 17:06 A&P Assessment and plan 1. Acute on chronic systolic congestive heart failure: - Admit to CSU on telemetry - Strick I/Os - Daily weights - Diuresis with 40mg IV lasix BID - Continue statin - GDMT: Resume Entresto and Jardiance. Beta ankita stopped at previous encounter for bradycardia. Unclear as to why MRA was discontinued - Check BMP in the AM 2. Pneumonia of right lower lobe due to infectious organism: - Check sputum culture - PRN Duonebs - Continue Azithromycin and Rocephin - Check procalcitonin and CRP. Consider early discontinuation should these values be low PDMP PDMP Reviewed: Not Reviewed Attestations 2 Medical Necessity Statement*: Patient is anticipated to required greater than two midnights for close monitoring and IV diuretics in the setting of CHF exacerbation Coding Level of Care Code Acute Code for [facility] Fwd Diagnoses Acute on chronic systolic congestive heart failure I50.23 Heart failure type: systolic Pneumonia of right lower lobe due to infectious organism J18.9 Pneumonia type: due to unspecified organism Laterality: right Lung location: lower lobe of lung
[2025-03-28] MEDS: cefTRIAXone 1,000 mg SDV 1000 MG IVP (20:09)
[2025-03-28 21:41] LABS: Procalcitonin 0.07 ng/mL (0-0.5)
--- NOTE | 2025-03-28 22:37 | ECG_ITS ---
[facility]: [facility]25-[facility]28 Pat Name: Jude Lemon Department: Room: 107 Gender: Male [place] Pilot: : 1965 Requested By: Carlee Durand Order Number: [id number] Pauline MD: Johnie Browning M.D. Measurements Intervals Robert Lee Rate: 77 P: 9 NV: 182 QRS: 1 QRSD: 205 T: 142 QT: 499 QTc: 565 Interpretive Statements SINUS RHYTHM INTRAVENTRICULAR CONDUCTION DELAY [130+ ms QRS DURATION] Compared to ECG 03/28/2025 19:25:47 Intraventricular conduction delay now present Left bundle-branch block no longer present Electronically Signed On 03-29-2025 17:37:50 FURNACE ROOM SUPERVISOR by Johnie Browning M.D. [email or web address]
[2025-03-28 23:13] LABS: Troponin 5 6HR 36.12 ng/L (0-15); Troponin 5 6HR Delta 5.12 ng/L (0-12)
[2025-03-29] VITALS (10 sets, daily range): BP systolic 109–137; BP diastolic 68–92; PULSE 59–83; RESP 16–27; TEMP 36.1–36.5; O2SAT 90–98; BMI 29.9
[2025-03-29 02:55] LABS: Hematocrit 38.2 % (37-53); Hemoglobin 12.60 g/dL (11.27-16.99); Mean Corpuscular HGB Conc 33.0 g/dL (30-55); Mean Corpuscular Hemoglobin 30.1 pg (27-33); Mean Corpuscular Volume 91.2 fl (82-101); Nucleated Red Blood Cells % 0 %; Platelet Count 227 10^3/cmm (157-399); Red Blood Count 4.19 10^6/uL (3.85-5.65); White Blood Count 5.13 10^3/uL (3.29-11.43)
[2025-03-29 03:09] LABS: Anion Gap 14.0 (5-19); Blood Urea Nitrogen 15 mg/dL (6-20); Calcium 8.8 mg/dL (8.5-10.5); Carbon Dioxide 26 mmol/L (22-29); Chloride 104 mmol/L (98-107); Glucose 94 mg/dL (65-115); Magnesium 2.1 mg/dL (1.7-2.3); Osmolality Calculated 291 mOsm/kg (285-295); Potassium 4.0 mmol/L (3.5-5.1); Sodium 140 mmol/L (136-145)
[2025-03-29] MEDS: FUROsemide 10 mg/mL SDV 4mL 40 MG IVP ×2 (05:02→17:04)
[2025-03-29] MEDS: DAPAGLIFLOZIN 10 MG TABLET PO (06:35)
[2025-03-29] MEDS: ondansetron 2 mg/ML SDV 2 mL 4 MG IVP (08:12)
--- NOTE | 2025-03-29 10:52 | P.PN_ITS ---
Subjective 2 Subjective: Patient is seen this morning in the cardiac stepdown unit. He is a 59-year-old male with known history of CHF, who presented to the ER yesterday with difficulty breathing which is worse on exertion, with associated worsening pedal edema. Chest x-ray reports apparent pneumonia, for which he started on IV Rocephin and azithromycin. He reports very little improvement in symptoms. He reports persistent dyspnea on exertion and some dizziness. He had no new complaints, otherwise. Vitals/I&O/Wt Last Vital Signs Temp 97.3 F L 03/29/25 07:45 Pulse 79 03/29/25 07:45 Resp 27 H 03/29/25 07:45 BP 127/92 03/29/25 07:45 Pulse Ox 92 03/29/25 07:45 O2 Del Method Nasal Cannula 03/29/25 07:45 O2 Flow Rate 2 03/29/25 04:40 03/28/25 03/29/25 03/29/25 22:59 06:59 14:59 Intake Total 250 / 250 2000 / 2250 240 / 240 Output Total 1450 / 1450 1999 / 1999 Balance 250 / 250 550 / 800 -1760 / -1760 Weight last 48 hrs Weight 89.3 kg Weight 90.6 kg Weight 90.6 kg Weight 89.6 kg Weight 93.157 kg Physical Exam 2 Narrative: General: Awake and alert. Cooperative. Oxygen supplementation by nasal cannula in situ. Chest/Resp: Normal respiratory chest movts; mild respiratory distress with mild exertion in bed. CVS: Regular heart rate and rhythm. GI: Non-distended; No obvious organomegaly. Extremities: No obvious pitting pedal edema. Skin: No obvious new rashes or new skin lesions. Data 03/29/25 02:30 03/29/25 02:30 A&P Assessment and plan 1. Acute exacerbation of CHF (congestive heart failure): 2. Pneumonia: 3. Severe pulmonary hypertension: 4. Chronic systolic congestive heart failure: Plan: Currently stable patient. We will continue all ongoing treatment plans, which includes the IV diuresis with Lasix and antibiotics. Wean off oxygen as tolerated. Monitor weight daily. Strict input and output. Treat other concomitant symptoms empirically. Further plans to be adjusted as clinical picture evolves. See my orders for more details. PDMP PDMP Reviewed: Not Reviewed Attestations 2 Medical Necessity Statement*: Patient admitted for apparent severe clinical condition, as outlined in the Assessment & Plan section above. Patient will need up to 2 midnight stay, estimated, at least, to adequately and appropriately treat and optimally control above-named clinical conditions. Coding Level of Care Code Acute Code for [facility] Fwd Diagnoses Acute exacerbation of CHF (congestive heart failure) I50.9 Pneumonia J18.9 Severe pulmonary hypertension I27.20 Chronic systolic congestive heart failure I50.22
[2025-03-29] MEDS: cefTRIAXone 1,000 mg SDV 1000 MG IVP (20:38)
[2025-03-30 02:34] LABS: Anion Gap 13.0 (5-19); Blood Urea Nitrogen 15 mg/dL (6-20); Calcium 8.7 mg/dL (8.5-10.5); Carbon Dioxide 30 mmol/L (22-29); Chloride 101 mmol/L (98-107); Glucose 108 mg/dL (65-115); Osmolality Calculated 291 mOsm/kg (285-295); Potassium 4.0 mmol/L (3.5-5.1); Sodium 140 mmol/L (136-145)
[2025-03-30 04:00] VITALS: BP 106/77; PULSE 69; RESP 19; TEMP 36.6; O2SAT 91
[2025-03-30] MEDS: DAPAGLIFLOZIN 10 MG TABLET PO (04:30)
[2025-03-30] MEDS: FUROsemide 10 mg/mL SDV 4mL 40 MG IVP (04:31)
[2025-03-30 08:00] VITALS: BP 121/67; PULSE 63; RESP 25; TEMP 36.1; O2SAT 90
[2025-03-30 08:47] VITALS: PULSE 72; RESP 18; O2SAT 95
--- NOTE | 2025-03-30 09:53 | PC.CHAP ---
Pastoral Care Encounter/Spiritual Assessment Type of Contact [] Declined fiberline supervisor visit [] Patient/Family/Request visit [] Outpatient visit [] Follow-up visit [] Physician referral [] Code/Alert [x] Routine visit [] Staff referral [] Actively dying [x] Patient sleeping [] Family support [] [] Out of room [] Palliative care [] [] Receiving care in room [] Pre-surgical visit [] Trauma [] Long length of stay [] ICU visit [] Other: Relational/Emotional Strength [] Patient feels connected with others/family/visitors/staff [] Distress [] Loneliness/isolation [] Abandonment Spirituality of Patient [] Person of Joanne [] Attends Oriental Orthodox of their Joanne [] Believes in Prayer [] Reads Bible or Restorationism materials [] There are Spiritual issues to be addressed [place] [employer] Interventions [x] Prayer [] Active listening [] Non-anxious presence [] Spiritual/emotional support [] Crisis/trauma care [] Spiritual counseling [] Bereavement support [] Provided bereavement packet [] Provided Bible/devotional materials [] Provided toy/stuffed animal, coloring book to patient or family member [] Provided Communion [] Anointing/[place] [] Salvation [] Completed spiritual assessment [] Other: Impact on Illness or Injury [] Angry [] Fearful [] Anxious [] Often cries [] Exhaustion [] Unable to work [] Unable to attend denominational [] Unable to walk/stand [] Unable to read [] Unable to drive [] Unable to eat/drink [] Unable to sleep [] Unable to be with family [] Patient intubated [] Other: Summary Time spent with patient
[2025-03-30 10:00] VITALS: BMI 29.2
--- NOTE | 2025-03-30 10:39 | PC.NURSE ---
Per provider Home O2 evaluation ordered.
[2025-03-30 11:23] VITALS: BP 112/70; PULSE 61; RESP 16; TEMP 36.4; O2SAT 95
[2025-03-30 12:31] VITALS: O2SAT 87; O2SAT 92; O2SAT 94
--- NOTE | 2025-03-30 12:33 | PC.NURSE ---
Patient ambulated 4 labs total, total of 6 minutes.
[2025-03-30 13:28] VITALS: BP 112/70; PULSE 63; RESP 13; O2SAT 90
--- NOTE | 2025-03-30 14:01 | PC.NURSE ---
discharge is delayed due to waiting for home O2.
--- NOTE | 2025-03-30 14:02 | PM.DCS ---
Discharge Providers Date of Admission: 03/28/25 20:30 Date of Discharge: March 30, 2025 Attending Provider at Admission: Jamie Benjamin MD Attending Provider at Discharge: Puneet Neal MD Primary Care Provider: LAST [facility] Diagnoses at Discharge Discharge Diagnosis 1. Acute on chronic systolic congestive heart failure: 2. Pneumonia of right lower lobe due to infectious organism: 3. Severe pulmonary hypertension: 4. Chronic systolic congestive heart failure: Reason for Visit Reason for Visit: Shortness of breath Hospital Course Hospital Course This is a 59-year-old male with past medical history of nonischemic cardiomyopathy, systolic CHF, who presents to [facility] due to complaints of shortness of breath. Patient was admitted to [facility] for acute on chronic systolic CHF exacerbation with pneumonia and right lower lobe For acute systolic CHF exacerbation, received inpatient IV diuresis, overall clinically improved, will be discharged on Lasix 40 mg daily, with potassium replacement therapy with close follow-up with primary care provider as outpatient, follow-up with cardiology For pneumonia of right lower lobe received IV antibiotics in inpatient, discharged on p.o. antibiotics Physical Exam Const: COMMON NORMALS: no acute distress and patient oriented x3 Resp: COMMON NORMALS: normal respiratory effort, No retractions, No use of accessory muscles and clear to auscultation bilaterally AUSCULTATION: clear to auscultation bilaterally Cardio: COMMON NORMALS: regular rate, regular rhythm, S1 normal heart sound present and S2 normal heart sound present RATE: regular rate RHYTHM: regular rhythm HEART SOUNDS: S1 normal heart sound present and S2 normal heart sound present GI: COMMON NORMALS: Normal to inspection, nondistended, normoactive bowel sounds present and non-tender Extremity: COMMON NORMALS: no pedal edema Neuro: COMMON NORMALS: patient oriented x3, CN's II-XII intact bilaterally and moves all extremities Psych: COMMON NORMALS: mental status grossly normal Discharge Data Studies Completed and Pending Completed Studies During Hospitalization Category Date Time Status XR chest 1V portable [id number] Stat Exams 03/28/25 16:48 Completed Pending at discharge Category Date Time Status Basic Metabolic Panel AM LABS Lab 03/31/25 04:00 Ordered Sputum Culture and Gram Stain Routine Lab 03/29/25 04:00 Results Radiology Impressions Chest X-Ray 03/28/25 16:48 IMPRESSION: Hazy ground-glass opacities in the right lung which are increased. Small right effusion. Laboratory Results WBC 5.13 10^3/uL (3.29-11.43) 03/29/25 02:30 RBC 4.19 10^6/uL (3.85-5.65) 03/29/25 02:30 Hgb 12.60 g/dL (11.27-16.99) 03/29/25 02:30 Hct 38.2 % (37-53) 03/29/25 02:30 MCV 91.2 fl (82-101) 03/29/25 02:30 MCH 30.1 pg (27-33) 03/29/25 02:30 MCHC 33.0 g/dL (30-55) 03/29/25 02:30 RDW 15.4 % (12.1-15.1) H 03/29/25 02:30 Plt Count 227 10^3/cmm (157-399) 03/29/25 02:30 MPV 10.1 fL (7.4-10.4) 03/29/25 02:30 Neut % (Auto) 64.7 % 03/29/25 02:30 Lymph % (Auto) 22.2 % 03/29/25 02:30 [place] % (Auto) 11.1 % 03/29/25 02:30 Eos % (Auto) 1.0 % 03/29/25 02:30 Baso % (Auto) 0.8 % 03/29/25 02:30 Neut # (Auto) 3.32 10^3/uL (1.8-7.7) 03/29/25 02:30 Lymph # (Auto) 1.1 10^3/uL (0.8-4.8) 03/29/25 02:30 [place] # (Auto) 0.6 10^3/uL (0.2-0.9) 03/29/25 02:30 Eos # (Auto) 0.1 10^3/uL (0.0-0.8) 03/29/25 02:30 Baso # (Auto) 0.0 10^3/uL (0.0-0.1) 03/29/25 02:30 Nucleated RBC % (auto) 0 % 03/29/25 02:30 Nucleated RBCs # 0.0 /100WBC 03/29/25 02:30 PT 14.50 SECONDS (12.1-14.9) 03/28/25 17:06 INR 1.05 (0.8-1.2) 03/28/25 17:06 APTT 27.6 SECONDS (23.9-36.7) 03/28/25 17:06 Sodium 140 mmol/L (136-145) 03/30/25 01:57 Potassium 4.0 mmol/L (3.5-5.1) 03/30/25 01:57 Chloride 101 mmol/L (98-107) 03/30/25 01:57 Carbon Dioxide 30 mmol/L (22-29) H 03/30/25 01:57 Anion Gap 13.0 (5-19) 03/30/25 01:57 BUN 15 mg/dL (6-20) 03/30/25 01:57 Creatinine 1.2 mg/dL (0.7-1.2) 03/30/25 01:57 GFR Calculation 62.0 mL/min (90-130) L 03/30/25 01:57 Glucose 108 mg/dL (65-115) 03/30/25 01:57 Calculated Osmolality 291 mOsm/kg (285-295) 03/30/25 01:57 Calcium 8.7 mg/dL (8.5-10.5) 03/30/25 01:57 Magnesium 2.1 mg/dL (1.7-2.3) 03/29/25 02:30 Total Bilirubin 0.5 mg/dL (0.15-1.2) 03/28/25 17:06 AST 12 U/L (0-40) 03/28/25 17:06 ALT 7 U/L (0-41) 03/28/25 17:06 Alkaline Phosphatase 84 U/L (40-130) 03/28/25 17:06 Troponin T Baseline 31 ng/L (0-15) H 03/28/25 17:06 Troponin T 120 Minute 29.94 ng/L (0-15) H 03/28/25 19:07 Delta Troponin T -1.06 ABS# (0-10) L 03/28/25 19:07 Troponin T Hi Sens 6Hr 36.12 ng/L (0-15) H 03/28/25 22:51 Troponin T Hi Sens 6Hr Delta 5.12 ng/L (0-12) 03/28/25 22:51 C-Reactive Protein 9.5 mg/L (0.0-4.9) H 03/28/25 17:09 NT-Pro-B Natriuret Pep 6188 pg/mL (0-125) H 03/28/25 17:06 Total Protein 6.6 g/dL (6.6-8.7) 03/28/25 17:06 Albumin 4.0 g/dL (3.5-5.2) 03/28/25 17:06 Globulin 2.6 g/dL (1.3-4.6) 03/28/25 17:06 Lipase 52 U/L (13-60) 03/28/25 17:06 Procalcitonin 0.07 ng/mL (0-0.5) 03/28/25 17:09 Influenza A (PCR) Negative (Negative) 03/28/25 18:46 Influenza Type B (PCR) Negative (Negative) 03/28/25 18:46 RSV (PCR) Negative (Negative) 03/28/25 18:46 SARS-CoV-2 (PCR) Negative (Negative) 03/28/25 18:46 Vitals Last Vital Signs Temp 97.5 F L 03/30/25 11:23 Pulse 63 03/30/25 13:28 Resp 13 03/30/25 13:28 BP 112/70 03/30/25 13:28 Pulse Ox 90 03/30/25 13:28 O2 Del Method Nasal Cannula 03/30/25 11:23 O2 Flow Rate 3 03/30/25 12:31 Discharge Plan Discharge Patient Disposition: Home Condition: Stable Prescriptions: New sacubitril-valsartan [Entresto] 24-26 mg Tablet 1 tab PO BID 30 Days Qty: 60 0RF potassium chloride [Klor-Con M20] 20 mEq tablet,ER particles/crystals 20 meq PO DAILY 30 Days Qty: 30 0RF levofloxacin 750 mg tablet 750 mg PO DAILY 3 Days Qty: 3 0RF Continued furosemide [Lasix] 40 mg tablet 40 mg PO DAILY 30 Days Qty: 30 0RF atorvastatin [Lipitor] 40 mg tablet 40 mg PO DAILY 3 Days Qty: 30 0RF aspirin 81 mg tablet,delayed release (DR/EC) 81 mg PO DAILY 30 Days Qty: 90 0RF Discontinued naproxen sodium [Aleve] 220 mg Tablet 440 mg PO Q8H PRN (Reason: Fever Or Pain) Discharge Order = DC NOW: Discharge Order (Routine); Ordered 03/30/25 Ordered By: Puneet Neal Other Ambulatory Orders: DME: Oxygen (Order) Location: None Selected Ordered By: Puneet Neal Referrals: [facility] [place] [Outside] Julianna Valadez NP [Nurse Practitioner, Family Practice] - 04/07/25 3:00 pm Johnie Browning MD [Physician, Cardiology] - 05/19/25 3:00 pm Discharge Diet: Cardiac Discharge Activity: Resume usual activity Patient Instructions: Potassium Chloride (By mouth), Levofloxacin (By mouth) (Levaquin, Levaquin Leva-rufus), Sacubitril/Valsartan (By mouth) (Entresto, Entresto Sprinkle), Hypertension (DC), CHF Stoplight, Opioid Safety, Pneumonia Stoplight, Patient Portal & Heather Instructions Activity Restrictions/Additional Instructions: - Please limit fluid intake to 1000 cc of fluid - Take Lasix as prescribed, with potassium replacement - Follow-up with primary care provider to recheck kidney function - Follow-up with cardiology to follow-up your heart failure, - If any chest pain please go to the emergency room Discharge Attestations Time Spent in Discharge Care*: greater than 30 min Quality Metrics Clinical Quality Measures [ No reported AMI, CVA or VTE this stay] Coding Level of Care Code 31318 Total time (in minutes) for Discharge: 45 Diagnoses Acute on chronic systolic congestive heart failure I50.23 Heart failure type: systolic Pneumonia of right lower lobe due to infectious organism J18.9 Laterality: right Lung location: lower lobe of lung Pneumonia type: due to unspecified organism Severe pulmonary hypertension I27.20 Chronic systolic congestive heart failure I50.22 Heart failure chronicity: chronic
--- NOTE | 2025-03-30 14:12 | PC.NURSE ---
Patient is discharged without his home O2, per case management he can go to HOME and pick it up. Patient's daughter said that she will take him right over there to pick it up.
== END 2025-03-30 14:13 | disposition home or self-care (01) | DRG 194 ==
LOC: ER 20:48 → CSU 21:11
PROVIDERS: Emergency Medicine; Admitting Provider Family Medicine; Emergency Provider Physician Assistant; PCP Nurse Practitioner Family; Visit Provider Family Medicine
DX: I50.23 Acute on chronic systolic (congestive) heart failure (principal); J18.9 Pneumonia, unspecified organism; I27.20 Pulmonary hypertension, unspecified; T50.916A Underdosing of multiple unspecified drugs, medicaments and biological substances, initial encounter; Z91.148 Patient's other noncompliance with medication regimen for other reason; Y92.9 Unspecified place or not applicable; F17.200 Nicotine dependence, unspecified, uncomplicated
CPT/HCPCS: 36415; 71045; 80048; 80053; 83690; 83735; 83880; 84145; 84484; 85025; 85610; 85730; 86140; 87070; 87205; 87637; 93005; 94640; 94760; 96365; 96372; 96375; 99285; J0456; J0696; J1650; J1938; J2405; J7050; J9999

== ENCOUNTER → 2025-04-07 15:23 | Outpatient (BNVA) | payer MEDICAID, SELFPAY | PROVIDERS: PCP Nurse Practitioner Family | DX: I50.23 Acute on chronic systolic (congestive) heart failure (principal) | CPT/HCPCS: 80053; 83880; 85025 ==